=== PATIENT | male | born 1950 | race Two or more races ===

== ENCOUNTER 2020-08-03 13:51 | Outpatient (REF) | payer MEDICARE, MEDICAID, SELFPAY | END 2020-08-03 13:52 | disposition home or self-care (01) | LOC: HO.HAP 13:51 | PROVIDERS: Visit Provider Family Medicine | DX: Z46.1 Encounter for fitting and adjustment of hearing aid (principal) | CPT/HCPCS: V5266 ==

== ENCOUNTER → 2020-11-23 14:57 | Outpatient (BNVA) | payer MEDICARE, MEDICAID, SELFPAY | PROVIDERS: PCP Family Medicine; Visit Provider Internal Medicine Gastroenterology | DX: Z76.89 Persons encountering health services in other specified circumstances (principal) | CPT/HCPCS: Q3014 ==

== ENCOUNTER 2020-11-24 13:34 | Outpatient (REF) | payer MEDICARE, MEDICAID, SELFPAY ==
--- NOTE | ~2020-11-24 | CT_ITS ---
EXAMINATION: CT CHEST WITHOUT CONTRAST CLINICAL INFORMATION: Follow-up pulmonary nodules COMPARISON: Previous chest CT most recent October 2019 TECHNIQUE: Multidetector volumetric CT imaging of the chest was done. Axial MIP volume rendering provided. Sagittal and coronal reformatted images were obtained. This CT examination was performed using dose optimization techniques as appropriate, variously including the following: *Automated exposure control *Adjustment of mA and/or kV according to patient size (this includes techniques or standardized protocols for targeted exams where dose is matched to indication/reason for exam; i.e. extremities or head) *Use of iterative reconstruction technique DLP: 184 mGy-cm FINDINGS: FORESTRY SUPPORT SPECIALIST: Left lower lobe nodule. LUNGS: There are small 2 mm bilateral upper lobe nodules that are stable. There is a 3 mm calcified right upper lobe nodule axial image 274 series 7 that is stable. There is a 2 mm peripheral or subpleural right lower lobe nodule adjacent to the posterior mediastinum/esophagus axial image 450 series 7 There is a 7 mm calcified peripheral or subpleural left lower lobe nodule axial image 517 series 7 that is stable. There is adjacent linear scarring or subsegmental atelectasis that is able. The lungs are otherwise clear. MEDIASTINUM: There is coronary artery calcification. The mediastinum is otherwise normal. PLEURA: There is no pleural effusion. No pleural mass or thickening. AXILLA: No lymphadenopathy. UPPER ABDOMEN: Unremarkable. OSSEOUS STRUCTURES: There are degenerative changes of the spine. CT/CT chest wo con IMPRESSION: Stable calcified and noncalcified pulmonary nodules. Coronary artery calcification.
== END 2020-11-24 13:35 | disposition home or self-care (01) ==
LOC: HO.CT 13:34
PROVIDERS: Visit Provider Family Medicine
DX: R91.1 Solitary pulmonary nodule (principal)
CPT/HCPCS: 71250

== ENCOUNTER 2020-12-17 12:57 | Outpatient (REF) | payer MEDICARE, MEDICAID, SELFPAY | END 2020-12-17 12:58 | disposition home or self-care (01) | LOC: HO.HAP 12:57 | PROVIDERS: Visit Provider Family Medicine | DX: Z46.1 Encounter for fitting and adjustment of hearing aid (principal) | CPT/HCPCS: V5266 ==

== ENCOUNTER → 2021-03-22 10:48 | Outpatient (BNVA) | payer MEDICARE, MEDICAID, SELFPAY | PROVIDERS: PCP Family Medicine; Visit Provider Internal Medicine Gastroenterology | CPT/HCPCS: Q3014 ==

== ENCOUNTER 2021-04-13 12:26 | Outpatient (REF) | payer MEDICARE, MEDICAID, SELFPAY ==
--- NOTE | ~2021-04-13 | US_ITS ---
EXAMINATION: US COMPLETE ABDOMEN WITH LIVER ELASTOGRAPHY CLINICAL INFORMATION: Epigastric pain. History of reflux. COMPARISON: Previous CT of the abdomen and pelvis September 2019 TECHNIQUE: Real-time imaging of the abdominal viscera. Noninvasive ultrasound liver fibrosis assessment is performed using Terell ElastPQ point quantification shear wave elastography (pSWE) with a C5-2 MHz transducer. Multiple elastography samples are obtained. FINDINGS: PANCREAS: The visualized pancreatic head and body are normal in appearance. The remainder of the pancreas is obscured from visualization by the overlying bowel gas. ABDOMINAL AORTA: The proximal, middle, and distal aortic segments are normal in caliber. There is evidence of atherosclerotic disease. INFERIOR VENA CAVA: Visualized portions are normal. LIVER: Liver echotexture is increased. The liver demonstrates normal size and contour. No focal lesion or intrahepatic biliary duct dilatation. The right lobe measures 15.4 cm in length. The left lobe measures 6.5 cm in length. Portal flow is normal/hepatopedal. Shear wave liver elastography median stiffness is m/s (reference: normal median stiffness is 1.3 m/s or less). IQR/median stiffness to assess sampling precision is 1.4, 0.13 (reference: good quality data set is IQR/median stiffness of 0.15 or less). GALLBLADDER: Normal. The gallbladder is physiologically distended without evidence of stones, sludge, polyps, wall thickening or pericholecystic fluid. COMMON BILE DUCT: Normal in caliber measuring 0.7 cm in diameter. RIGHT KIDNEY: Normal. No hydronephrosis. No renal calculi or focal parenchymal lesions. The kidney measures 10.9 cm in maximum dimension. LEFT KIDNEY: Normal. No hydronephrosis. No renal calculi or focal parenchymal lesions. The kidney measures 11.7 cm in maximum dimension. SPLEEN: Normal. The spleen measures 9.7 cm in maximum dimension. FREE FLUID: None. US/US abdomen comp w elastography IMPRESSION: 1. Impression: Slightly echogenic liver. Limited visualization of the tail the pancreas. 2. Liver elastography: Adequate liver sampling. In the absence of other known clinical signs, rules out compensated advanced chronic liver disease. REFERENCE: Society of Radiologists in Ultrasound Liver Stiffness Thresholds (2020): LIVER STIFFNESS THRESHOLDS: *Liver Stiffness equal or less than 1.3 m/s: High probability of being normal. *Liver Stiffness less than 1.7 m/s: *Liver Stiffness 1.7-2.1 m/s: Suggestive of compensated advanced chronic liver disease but need further test for confirmation. *Liver Stiffness over 2.1 m/s: Rules in compensated advanced chronic liver disease. *Liver Stiffness over 2.4 m/s: Suggestive of clinically significant portal hypertension. QUALITY OF DATA SET: *IQR/Median value equal or less than 0.15 implies a quality data set. *IQR/Median value over 0.15 implies a poor quality data set. SIGNIFICANT CHANGE FROM PRIOR EXAM: Significant change if liver stiffness measurement is 10% or greater from prior exam. OTHER CONSIDERATIONS: The stage of liver fibrosis may be overestimated in the setting of acute hepatitis, liver inflammation, elevated liver function tests, hepatic vascular congestion, obstructive cholestasis, non-fasting state, and infiltrative diseases such as amyloidosis and lymphoma. In some patients with NAFLD, the liver stiffness thresholds for compensated advanced chronic liver disease may be lower. In causes other than viral hepatitis and NAFLD, liver stiffness thresholds are not well established.
== END 2021-04-13 12:27 | disposition home or self-care (01) ==
LOC: HO.US 12:26
PROVIDERS: Visit Provider Internal Medicine Gastroenterology
DX: K21.9 Gastro-esophageal reflux disease without esophagitis (principal); K59.01 Slow transit constipation
CPT/HCPCS: 76705; 76981

== ENCOUNTER 2021-04-29 13:55 | Outpatient (REF) | payer MEDICARE, MEDICAID, SELFPAY | END 2021-04-29 13:56 | disposition home or self-care (01) | LOC: HO.HAP 13:55 | PROVIDERS: Visit Provider Family Medicine | DX: Z46.1 Encounter for fitting and adjustment of hearing aid (principal); H90.3 Sensorineural hearing loss, bilateral | CPT/HCPCS: V5266 ==

== ENCOUNTER → 2021-07-12 11:30 | Outpatient (BNVA) | payer MEDICARE, MEDICAID, SELFPAY | PROVIDERS: PCP Family Medicine; Visit Provider Surgery Vascular Surgery | DX: I83.11 Varicose veins of right lower extremity with inflammation (principal) | CPT/HCPCS: 99202 ==

== ENCOUNTER → 2021-08-02 10:41 | Outpatient (BNVA) | payer MEDICARE, MEDICAID, SELFPAY | PROVIDERS: PCP Family Medicine; Referring Provider Family Medicine; Visit Provider Internal Medicine Gastroenterology | DX: K21.9 Gastro-esophageal reflux disease without esophagitis (principal); K59.01 Slow transit constipation | CPT/HCPCS: 99212 ==

== ENCOUNTER 2021-08-18 12:34 | Outpatient (REF) | payer MEDICARE, MEDICAID, SELFPAY ==
--- NOTE | ~2021-08-18 | US_ITS ---
EXAMINATION: BILATERAL LOWER EXTREMITY VENOUS ULTRASOUND (Reflux Exam) CLINICAL INDICATION: This is a 70-year-old male with venous insufficiency and varicose veins. COMPARISON: None. TECHNIQUE: Color flow triplex imaging and compression Doppler was performed to evaluate both the deep and the superficial systems bilaterally. To evaluate the superficial system, the examination was performed in the upright position. Color-flow Doppler ultrasound and compression ultrasound were utilized. In addition, maneuvers were utilized to demonstrate reflux. FINDINGS: 1. DEEP VENOUS ULTRASOUND OF THE RIGHT LOWER EXTREMITY: Common Femoral Vein: Compressible, normal respiratory variation and augmented flow. Femoral vein: Compressible, normal color flow and augmentation. Popliteal Vein: Compressible, normal augmentation. Deep Reflux: There is no evidence of reflux in the deep system in either the common femoral vein or the popliteal vein. . There is no evidence of a Stout's cyst. 2. SUPERFICIAL ULTRASOUND WITH DOPPLER OF RIGHT LOWER EXTREMITY GREAT SAPHENOUS VEIN: Saphenofemoral junction: 0.9 cm Mid thigh: 0.2 cm Above knee: 0.2 cm Below knee: 0.2 cm Mid calf: 0.2 cm Ankle: 0.2 cm GSV REFLUX: No evidence of reflux. DUPLICATED GREAT SAPHENOUS VEIN: There is a 0.4 cm duplicated lateral great saphenous vein without reflux. SMALL SAPHENOUS VEIN: Upper: 0.1 cm Lower: 0.2 cm SSV REFLUX: No evidence of reflux. VEIN OF GIACOMINI: None Imaged. 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 VARICOSITIES: None Imaged 3. DEEP VENOUS ULTRASOUND OF THE LEFT LOWER EXTREMITY: Common Femoral Vein: Compressible, normal respiratory variation and augmented flow. Femoral vein: Compressible, normal color flow and augmentation. Popliteal Vein: Compressible, normal augmentation. Deep Reflux: There is no evidence of reflux in the deep system in either the common femoral vein or the popliteal vein. There is no evidence of a Stout's cyst. 4. SUPERFICIAL ULTRASOUND WITH DOPPLER OF LEFT LOWER EXTREMITY GREAT SAPHENOUS VEIN: Saphenofemoral junction: 0.9 cm Mid thigh: 0.4 cm Above knee: 0.3 cm Below knee: 0.3 cm Mid calf: 0.2 cm Ankle: 2.2 cm GSV REFLUX: No evidence of reflux. DUPLICATED GREAT SAPHENOUS VEIN: None SMALL SAPHENOUS VEIN: Upper: 0.3 cm Lower: 0.2 cm SSV REFLUX: No evidence of reflux. VEIN OF GIACOMINI: None Imaged. PERFORATORS: There are 0.2 cm mid thigh and calf perforators, respectively, without reflux. VARICOSITIES: None Imaged US/US venous duplex LE BI IMPRESSION: 1. There are bilateral patent great saphenous veins and small saphenous veins, respectively, without evidence of reflux. Varicose veins were not seen.
== END 2021-08-18 12:35 | disposition home or self-care (01) ==
LOC: HO.US 12:34
PROVIDERS: PCP Family Medicine; Visit Provider Surgery Vascular Surgery
DX: I83.11 Varicose veins of right lower extremity with inflammation (principal)
CPT/HCPCS: 93970

== ENCOUNTER → 2021-08-25 13:38 | Outpatient (BNVA) | payer MEDICARE, MEDICAID, SELFPAY | PROVIDERS: PCP Family Medicine; Visit Provider Surgery Vascular Surgery | DX: I83.11 Varicose veins of right lower extremity with inflammation (principal) | CPT/HCPCS: 99212 ==

== ENCOUNTER 2021-09-15 10:20 | Outpatient (REF) | payer MEDICARE, MEDICAID, SELFPAY ==
--- NOTE | 2021-09-15 10:58 | MHC.AU.P13 ---
Hearing Instrument Problem Date of Visit: 09/15/21 Right Ear: Pad Assembler: Phonak Model: BOLERO B50-M Serial Number: [id number] Repair Warranty: 11/30/2021 Loss and Damage Warranty: 11/30/2021 Battery Size: 312 Color: [place] Tubing: #1 SLIM TUBE Type of Dome: SMALL OPEN Type of Wax Guard: Dispensed By: [facility] Date of Fittin09/25/2018 Left Ear: Pad Assembler: Phonak Model: BOLERO B50-M Serial Number: [id number] Repair Warranty: 11/30/2021 Loss and Damage Warranty: 11/30/2021 Battery Size: 312 Color: [place] Tubing: #1 SLIM TUBE Type of Dome: SMALL OPEN Dispensed By: [facility] Date of Fittin09/25/2018 Follow-Up Summary: Patient lost tail on one slim tube. Both aids cleaned, #1 slim tubes and small open domes replaced - both amplifying clearly. Recommendations: Recommendations: Hearing instrument follow-up or maintenance as needed. Diagnosis Code(s): Primary Diagnosis: H90.3 Bilateral Sensorineural Hearing Loss Signature: Provider: JAKI Underwood-HIS
== END 2021-09-15 10:21 | disposition home or self-care (01) ==
LOC: HO.HAP 10:20
PROVIDERS: Visit Provider Family Medicine
DX: Z13.89 Encounter for screening for other disorder (principal)

== ENCOUNTER 2021-09-16 16:41 | Emergency (ER) | payer MEDICARE, MEDICAID, SELFPAY ==
--- NOTE | ~2021-09-16 | XR_ITS ---
EXAMINATION: XR CHEST CLINICAL INFORMATION: Cough. COMPARISON: Chest x-ray 04/02/2019 TECHNIQUE: 2 views of the chest were obtained. FINDINGS: No significant abnormality is noted involving the heart, lungs, mediastinum, bony thorax or soft tissues. XR/XR chest 2V IMPRESSION: Unremarkable examination.
[2021-09-16 17:10] VITALS: BP 175/87; PULSE 75; RESP 20; TEMP 37.4; O2SAT 99; BMI 27.4
[2021-09-16 18:20] LABS: COVID-19 Test Negative (Negative)
[2021-09-16] MEDS: Benzonatate 100 MG CAPSULE 200 MG PO (19:26)
[2021-09-16] MEDS: Azithromycin 500 MG TABLET PO (19:26)
[2021-09-16] MEDS: predniSONE 20 MG TABLET 40 MG PO (19:26)
--- NOTE | 2021-09-16 19:30 | ED_ITS ---
HPI - URI/Sore Throat General Chief Complaint: Upper Respiratory Symptoms Stated Complaint: coughing Time Seen by Provider: 09/16/21 19:13 Source: patient Mode of arrival: ambulatory Limitations: no limitations History of Present Illness HPI Narrative: Patient with no significant past medical history already been vaccinated against COVID been coughing with running nose congested since yesterday no fever no chills Related Data Home Medications Medication Instructions Recorded Confirmed amitriptyline 25 mg tablet 50 mg PO BEDTIME 03/22/21 aspirin 81 mg tablet,delayed 81 mg PO BEDTIME 03/22/21 release blood sugar diagnostic #10 ea 03/22/21 cholecalciferol (vitamin D3) 50 50 mcg PO QAM 03/22/21 mcg (2,000 unit) capsule clonazepam 2 mg tablet 2 mg PO BEDTIME 03/22/21 docusate sodium 100 mg capsule 100 mg PO BID 03/22/21 gabapentin 300 mg capsule 300 mg PO BEDTIME 03/22/21 ipratropium bromide 21 mcg (0.03 2 spray INTRANASAL TID 03/22/21 %) nasal spray isosorbide mononitrate 30 mg 30 mg PO DAILY 03/22/21 tablet,extended release 24 hr ketotifen fumarate 0.025 % (0.035 1 drp OPHTHALMIC (EYE) BID PRN 03/22/21 %) eye drops lancets 33 gauge #100 ea 03/22/21 methylcellulose (laxative) 500 mg 1,000 mg PO QAM 03/22/21 tablet pantoprazole 40 mg tablet,delayed 40 mg PO DAILY 03/22/21 release ranolazine 1,000 mg 1,000 mg PO 03/22/21 tablet,extended release,12 hr sennosides 8.6 mg tablet 17.2 mg PO QPM 03/22/21 sertraline 100 mg tablet 100 mg PO QAM 03/22/21 tramadol 50 mg tablet 50 mg PO BID PRN 03/22/21 trazodone 100 mg tablet 100 mg PO BEDTIME 03/22/21 acetaminophen 650 mg 650 mg PO Q8H PRN 07/12/21 tablet,extended release alcohol swabs (Alcohol Prep Pads) 0 pad TOPICAL 07/12/21 atorvastatin 80 mg tablet 80 mg PO BEDTIME 07/12/21 ferrous sulfate 325 mg (65 mg 325 mg PO QAM 07/12/21 iron) tablet (FeroSul) levothyroxine 88 mcg tablet 88 mcg PO DAILY 07/12/21 lisinopril 2.5 mg tablet mg PO 07/12/21 metformin 500 mg tablet,extended 500 mg PO DAILY 07/12/21 release 24 hr metoprolol succinate 25 mg 12.5 mg PO DAILY 07/12/21 tablet,extended release 24 hr Previous Rx's Medication Instructions Recorded linaclotide 290 mcg capsule 290 mcg PO DAILY #60 cap 08/02/21 sucralfate 100 mg/mL oral 10 ml PO BID #420 ml 08/02/21 suspension (Carafate) azithromycin 250 mg tablet 250 mg PO DAILY 4 Days #4 tab 09/16/21 (Zithromax) codeine 10 mg-guaifenesin 100 mg/5 10 ml PO Q4-6H PRN #237 ml 09/16/21 mL oral liquid prednisone 20 mg tablet 40 mg PO DAILY #10 tab 09/16/21 Allergies Allergy/AdvReac Type Severity Reaction Status Date / Time SEAFOOD Allergy Intermediate VOMITING Uncoded 08/02/21 11:24 AND DIARHEA Review of Systems Review of Systems: Yes all other systems are reviewed and are negative [facility] Past Medical History Surgical History H/O colonoscopy History of cardiac cath Family History Family History Sister Cancer Social History Social History Household Members: Spouse and Children Alcohol intake: current Alcohol intake frequency: does not drink Advance Directives: No Advance Directives Information Provided: No Physical Exam Vital Signs: Vital Signs: Last Vital Signs Temp 99.4 F 09/16/21 17:10 Pulse 75 09/16/21 17:10 Resp 20 09/16/21 17:10 BP 175/87 H 09/16/21 17:10 Pulse Ox 99 09/16/21 17:10 BMI result Body Mass Index 27.4 Appearance: Alert. Oriented X3. No acute distress. ENT: Pharynx normal. Oral Mucosa moist clear rhinorrhea Neck: Normal inspection. Neck supple. CVS: Normal heart rate and rhythm. Pulses normal. Respiratory: No respiratory distress. Equal air entry bilateral, prolonged expiration with frequent dry cough Abdomen: Soft and nontender. Skin: Skin warm and dry. Normal skin color. Normal skin turgor. Extremities: No lower extremity edema. Neuro: Oriented X 3. MDM - URI/Sore Throat Lab Data Attestation: I reviewed the patient's lab results. Labs: Lab Results 09/16/21 Range/Units 17:59 COVID-19 ([facility]) Negative (Negative) COVID-19 Clin Com See Note Discharge Plan Discharge Clinical Impression: Bronchitis Patient Disposition: Home, Self-Care Instructions: Acute Bronchitis (ED) Additional Instructions: Take medication as prescribed Follow with PCP if not better Prescriptions: New prednisone 20 mg tablet 40 mg PO DAILY Qty: 10 RF: 0 codeine-guaifenesin 10-100 mg/5 mL liquid 10 ml PO Q4-6H PRN (Reason: cough) Qty: 237 RF: 0 azithromycin [Zithromax] 250 mg tablet 250 mg PO DAILY 4 Days Qty: 4 RF: 0 No Action ranolazine 1,000 mg tablet extended release 12 hr 1,000 mg PO RF: 0 ipratropium bromide 21 mcg (0.03 %) spray,non-aerosol 2 spray intranasal TID RF: 0 gabapentin 300 mg capsule 300 mg PO BEDTIME RF: 0 docusate sodium 100 mg capsule 100 mg PO BID RF: 0 clonazepam 2 mg tablet 2 mg PO BEDTIME RF: 0 Fiber Laxative (methylcellulo) 500 mg tablet 1,000 mg PO QAM RF: 0 trazodone 100 mg tablet 100 mg PO BEDTIME RF: 0 pantoprazole 40 mg tablet,delayed release (DR/EC) 40 mg PO DAILY RF: 0 amitriptyline 25 mg tablet 50 mg PO BEDTIME RF: 0 aspirin 81 mg tablet,delayed release (DR/EC) 81 mg PO BEDTIME RF: 0 (DME) FreeStyle Lite Strips Strip See Rx Instructions ea Not Applicable BID Qty: 10 RF: 0 sertraline 100 mg tablet 100 mg PO QAM RF: 0 sennosides 8.6 mg tablet 17.2 mg PO QPM RF: 0 tramadol 50 mg tablet 50 mg PO BID PRNRF: 0 isosorbide mononitrate 30 mg tablet extended release 24 hr 30 mg PO DAILY RF: 0 (DME) lancets 33 gauge misc See Rx Instructions ea Not Applicable BID Qty: 100 RF: 0 cholecalciferol (vitamin D3) 50 mcg (2,000 unit) capsule 50 mcg PO QAM RF: 0 ketotifen fumarate 0.025 % (0.035 %) drops 1 drp ophthalmic (eye) BID PRN (Reason: itch) RF: 0 alcohol swabs [Alcohol Prep Pads] Pads, Medicated 0 pad topical RF: 0 lisinopril 2.5 mg tablet PO RF: 0 metformin 500 mg tablet extended release 24 hr 500 mg PO DAILY RF: 0 atorvastatin 80 mg tablet 80 mg PO BEDTIME RF: 0 metoprolol succinate 25 mg tablet extended release 24 hr 12.5 mg PO DAILY RF: 0 ferrous sulfate [FeroSul] 325 mg (65 mg iron) tablet 325 mg PO QAM RF: 0 levothyroxine 88 mcg tablet 88 mcg PO DAILY RF: 0 acetaminophen 650 mg tablet extended release 650 mg PO Q8H PRN (Reason: fever) RF: 0 Linzess 290 mcg capsule 290 mcg PO DAILY Qty: 60 RF: 1 sucralfate [Carafate] 100 mg/mL suspension 10 ml PO BID Qty: 420 RF: 0 Interventions: ED Discharge Assessment Last Done: 09/16/21 19:28 Discharge Date/Time: 09/16/21 19:32
== END 2021-09-16 19:32 | disposition home or self-care (01) ==
PROVIDERS: Emergency Provider Internal Medicine
DX: J40 Bronchitis, not specified as acute or chronic (principal); Z20.822 Contact with and (suspected) exposure to COVID-19
CPT/HCPCS: 36415; 71046; 87635; 99283

== ENCOUNTER 2022-01-25 12:21 | Outpatient (REF) | payer MEDICARE, MEDICAID, SELFPAY | END 2022-01-25 12:22 | disposition home or self-care (01) | LOC: HO.HAP 12:21 | PROVIDERS: Visit Provider Family Medicine | DX: Z46.1 Encounter for fitting and adjustment of hearing aid (principal); H90.3 Sensorineural hearing loss, bilateral | CPT/HCPCS: V5266 ==

== ENCOUNTER 2022-05-18 12:58 | Outpatient (REF) | payer MEDICARE, MEDICAID, SELFPAY ==
--- NOTE | ~2022-05-18 | CT_ITS ---
EXAMINATION: CT CHEST WITHOUT CONTRAST CLINICAL INFORMATION: Follow-up pulmonary nodule. COMPARISON: Chest x-ray 09/16/2021 CT chest 11/24/2020. TECHNIQUE: Multidetector volumetric CT imaging of the chest was done. Axial MIP volume rendering provided. Sagittal and coronal reformatted images were obtained. This CT examination was performed using dose optimization techniques as appropriate, variously including the following: *Automated exposure control *Adjustment of mA and/or kV according to patient size (this includes techniques or standardized protocols for targeted exams where dose is matched to indication/reason for exam; i.e. extremities or head) *Use of iterative reconstruction technique DLP: 175 mGy-cm. 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 LUNGS: The lungs are well expanded and clear of acute pneumonic process. There are numerous 2 mm lymph nodes in both upper lobes, both lower lobes and focal lobular 2 mm thickening along the right and left major fissure, a calcified granuloma measuring 3 mm right upper lobe and the pleural-based 7 mm calcified granulomas are stable. There is no new pulmonary nodules. There is focal atelectasis left lower lobe. MEDIASTINUM: The thyroid lobes appear symmetrical and normal. The central trachea and the bronchi are widely patent. Heart size and the great vessels are normal caliber. There is mild coronary artery calcifications. No pericardial effusion seen. PLEURA: There is no pleural effusion. No pleural mass or thickening. AXILLA: There are small shotty lymph nodes in the axilla. The chest wall is unremarkable. UPPER ABDOMEN: Visualized liver, spleen, pancreas and bilateral adrenal glands are unremarkable. There is moderate stool in colon. OSSEOUS STRUCTURES: There is mild ventral spondylosis T8-T9 and T9-T10 disc levels. No compression fracture or lytic process. CT/CT chest wo con IMPRESSION: Multiple noncalcified 2 mm and calcified pulmonary nodules are stable. There is mild coronary artery calcification which is stable. Moderate constipation. Fleischner guidelines were followed.
== END 2022-05-18 12:59 | disposition home or self-care (01) ==
LOC: HO.CT 12:58
PROVIDERS: PCP Family Medicine; Visit Provider Family Medicine
DX: R91.1 Solitary pulmonary nodule (principal)
CPT/HCPCS: 71250

== ENCOUNTER 2022-07-04 13:16 | Outpatient (REF) | payer MEDICARE, MEDICAID, SELFPAY | END 2022-07-04 13:17 | disposition home or self-care (01) | LOC: HO.HAP 13:16 | PROVIDERS: Visit Provider Family Medicine | DX: Z46.1 Encounter for fitting and adjustment of hearing aid (principal); H90.3 Sensorineural hearing loss, bilateral | CPT/HCPCS: V5266 ==

== ENCOUNTER 2022-11-28 12:57 | Outpatient (REF) | payer MEDICARE, MEDICAID, SELFPAY | END 2022-11-28 12:58 | disposition home or self-care (01) | LOC: HO.HAP 12:57 | PROVIDERS: Visit Provider Family Medicine | DX: Z46.1 Encounter for fitting and adjustment of hearing aid (principal); H90.3 Sensorineural hearing loss, bilateral | CPT/HCPCS: V5266 ==

== ENCOUNTER 2023-02-20 09:52 | Outpatient (REF) | payer OTHER, SELFPAY ==
--- NOTE | ~2023-02-20 | XR_ITS ---
EXAMINATION: XR LUMBOSACRAL SPINE CLINICAL INFORMATION: Low back pain COMPARISON: Previous x-ray from 1999 TECHNIQUE: Three views of the lumbosacral spine. FINDINGS: Bone alignment is normal. No fracture or dislocation. Disc spaces are normal. Mild degenerative spondylosis at L2-L3 and L3-L4. Lower lumbar spine facet arthritis. XR/XR lumbar spine 2-3V IMPRESSION: Mild degenerative changes.
--- NOTE | ~2023-02-20 | XR_ITS ---
EXAMINATION: XR RIBS, LEFT CLINICAL INFORMATION: Chronic left lower rib pain COMPARISON: Previous chest x-ray May [address] September 2021 TECHNIQUE: 3 views of the left ribs were obtained. FINDINGS: The cardiac and mediastinal contours are stable. Stable dense nodule in the left lower lobe corresponding to a calcified granuloma. The lungs are otherwise clear. No pleural effusion or pneumothorax. Degenerative changes of the spine. No rib fracture or bone lesion. XR/XR ribs LT min 3V w CXR1V IMPRESSION: No evidence for acute disease in the chest. No rib fracture.
== END 2023-02-20 09:53 | disposition home or self-care (01) ==
LOC: HO.XRAY 09:52
PROVIDERS: PCP Family Medicine; Visit Provider Family Medicine
DX: M54.9 Dorsalgia, unspecified (principal); R07.81 Pleurodynia
CPT/HCPCS: 71101; 72100

== ENCOUNTER 2023-03-05 09:02 | Outpatient (REF) | payer OTHER, SELFPAY ==
--- NOTE | ~2023-03-05 | US_ITS ---
EXAMINATION: US RETROPERITONEAL LIMITED (AORTA) CLINICAL INFORMATION: History of tobacco use. COMPARISON: CT chest 05/18/2022. US abdomen complete with liver elastography 04/13/2021. CT abdomen and pelvis without contrast 10/02/2019. TECHNIQUE: Abreu-scale, color Doppler and spectral Doppler evaluation of the abdominal aorta. FINDINGS: The proximal aorta is not seen due to bowel gas. Mild atherosclerotic disease. The measurements of the aorta in maximum AP and transverse dimensions respectively are as follows: Proximal: Not seen due to overlying bowel gas. Mid: 2.1 x 1.9 cm. Distal: 2.0 x 2.4 cm. PSV: 72.7 cm/s. The measurements of the common iliac arteries in maximum AP and TRV dimensions are as follows: Right Common Iliac Artery: 1.1 x 1.5 cm. Left Common Iliac Artery: 1.3 x 1.2 cm. US/US abdominal aortic aneurysm IMPRESSION: Nonvisualization of the proximal abdominal aorta due to bowel gas. Otherwise no evidence of aortic aneurysm. Note, on CT chest 05/18/2022 the upper abdominal aorta is normal in caliber.
== END 2023-03-05 09:03 | disposition home or self-care (01) ==
LOC: HO.US 09:02
PROVIDERS: PCP Family Medicine; Visit Provider Family Medicine
DX: Z13.6 Encounter for screening for cardiovascular disorders (principal); F17.200 Nicotine dependence, unspecified, uncomplicated
CPT/HCPCS: 76706

== ENCOUNTER 2023-06-25 19:48 | Outpatient (REF) | payer OTHER, SELFPAY ==
[2023-06-26 15:28] LABS: H Pylori Breath Test Negative (Negative)
== END 2023-06-25 19:49 | disposition home or self-care (01) ==
LOC: HO.HHCLNP 19:48
PROVIDERS: Visit Provider Family Medicine
DX: K21.9 Gastro-esophageal reflux disease without esophagitis (principal)
CPT/HCPCS: 83013

== ENCOUNTER 2023-07-20 12:50 | Outpatient (REF) | payer OTHER, SELFPAY | END 2023-07-20 12:51 | disposition home or self-care (01) | LOC: HO.CT 12:50 | PROVIDERS: Visit Provider Family Medicine | DX: R91.1 Solitary pulmonary nodule (principal) | CPT/HCPCS: 71250 ==

== ENCOUNTER 2023-08-09 09:56 | Outpatient (REF) | payer OTHER, SELFPAY ==
--- NOTE | 2023-08-09 10:02 | EMG_ITS ---
FINDINGS: Bilateral tibial and peroneal motor studies were performed. Bilateral sural, superficial peroneal, and median and lateral plantar sensory studies were performed. Tibial H reflexes were obtained and paraspinal muscles were tested with a needle. IMPRESSION: Moderately severe axonal sensory motor peripheral neuropathy. MD BETO Yancey/MODL / [id number]
== END 2023-08-09 09:57 | disposition home or self-care (01) ==
LOC: HO.NEURO 09:56
PROVIDERS: PCP Family Medicine; Visit Provider Family Medicine
DX: R20.2 Paresthesia of skin (principal)
CPT/HCPCS: 95886; 95913

== ENCOUNTER 2023-11-05 16:50 | Outpatient (REF) | payer OTHER, SELFPAY ==
[2023-11-05 18:41] LABS: CT PCR NOT DETECTED (Not Detect.); NG PCR NOT DETECTED (Not Detect.)
== END 2023-11-05 16:51 | disposition home or self-care (01) ==
LOC: HO.HHCLNP 16:50
PROVIDERS: Visit Provider Family Medicine
DX: R35.0 Frequency of micturition (principal); Z20.2 Contact with and (suspected) exposure to infections with a predominantly sexual mode of transmission
CPT/HCPCS: 0353U

== ENCOUNTER 2023-11-06 11:38 | Outpatient (REF) | payer OTHER, SELFPAY ==
[2023-11-06 13:57] LABS: Hematocrit 43.3 % (42.0-52.0); Hemoglobin 14.5 g/dl (14.0-18.0); Mean Corpuscular HGB Conc 33.5 g/dl (31.0-36.0); Mean Corpuscular Hemoglobin 32.1 pg (27.0-33.0); Mean Corpuscular Volume 95.8 fL (80.0-98.0); Platelet Count 206 X10*3/uL (160-400); Red Blood Count 4.52 X10*6/uL (4.60-5.80); Red Cell Distribution Width 11.9 % (11.0-16.0); White Blood Count 5.9 X10*3/uL (4.8-10.8)
[2023-11-06 14:24] LABS: Estimated Average Glucose 134 mg/dL; Hemoglobin A1c % 6.3 % (<6.0)
[2023-11-06 15:09] LABS: Alanine Aminotransferase 17 U/L (0-40); Albumin Level 4.3 g/dL (3.5-5.0); Alkaline Phosphatase 50 U/L (39-117); Anion Gap 11 (12-20); Aspartate Amino Transferase 19 U/L (5-37); Bilirubin Direct 0.2 mg/dL (0.0-0.5); Bilirubin Total 0.7 mg/dL (0.0-1.0); Blood Urea Nitrogen 12 mg/dL (9-16); Calcium 9.5 mg/dL (8.4-10.2); Carbon Dioxide 30 mmol/L (22-29); Chloride 103 mmol/L (96-108); Cholesterol 144 mg/dL (<200); Estimated Glomerular Filt Rate > 60; Free T4 (Free Thyroxine) 0.95 ng/dL (0.71-1.85); Glucose Random 140 mg/dL (60-115); HDL Cholesterol 38 mg/dL (>40); LDL Cholesterol Calculated 67 mg/dL (<100); Potassium 4.8 mmol/L (3.3-5.1); Sodium 139 mmol/L (135-145); Thyroid Stimulating Hormone 1.39 uIU/mL (0.32-4.0); Total Protein 7.1 g/dL (6.5-8.0); Triglycerides 199 mg/dL (<150); Vitamin D 25-OH Total 66.2 ng/mL (>30)
[2023-11-07 09:15] LABS: HBS Num1 0.21 mIU/mL (0-7.99); HBsAGNum1 0.27 S/CO (0.00-0.99); HIV AB/AG Nonreactive (Nonreactive); HIV Num 1 0.11 S/CO (0.00-0.99); Hepatitis B Surface Antigen Negative (Negative); ~HepC Num1 0.06 S/CO (0.00-0.79); ~Hepatitis B Surface Antibody NONREACTIVE (Nonreactive); ~Hepatitis C Antibody Nonreactive (Nonreactive)
[2023-11-08 12:19] LABS: RPR Rapid Plasma Reagin NON-REACTIVE (NON-REACTIVE)
== END 2023-11-06 11:39 | disposition home or self-care (01) ==
LOC: HO.HHCL 11:38
PROVIDERS: Visit Provider Family Medicine
DX: E11.9 Type 2 diabetes mellitus without complications (principal)
CPT/HCPCS: 36415; 80048; 80061; 80076; 82306; 83036; 84439; 84443; 85027; 86592; 86706; 86803; 87340; 87389

== ENCOUNTER 2024-01-15 09:13 | Outpatient (AMB) | payer OTHER, SELFPAY ==
--- NOTE | 2024-01-15 09:23 | MHC.OFFVIS ---
Intake Intake Visit Reasons: Frequency/UTI Symptoms Intake Note: New patient is present for UTI Symptoms and Frequency Antibiotic Allergies:None Blood Thinner: Aspirin PVR: 17 Executive Producer Required: Yes Allergies SEAFOOD Allergy (Intermediate, Uncoded 01/15/24 09:26) VOMITING AND DIARHEA HPI HPI Comments History of Present Illness Details Juvencio is a pleasant Vietnamese-speaking male. He is a patient of . He is seen for the following urologic conditions - lower urinary tract symptoms Vietnamese translation provided in office by qualified medical detail representative Primary issues nocturia times 3-4 Weakness of stream Feeling of burning with urination - UA spec gravity 1.025, pH 5.5 Discussed increasing fluid intake in morning to dilute urine Will Trial terazosin Bladder ultrasound, PSA Lower urinary tract symptoms Background diabetes PFSH Surgical History History of cardiac cath H/O colonoscopy Family History Sister Cancer Social History Household Members: Spouse and Children Alcohol intake: current Alcohol intake frequency: does not drink Review of Systems Const Denies chills and Denies fever(s) Card Reports no additional complaints and Denies syncope Resp Denies cough GI Denies abdominal pain and Denies heartburn Reports as per HPI and Denies change in libido Neuro Denies syncope Psych Denies change in libido Endo Denies change in libido Physical Exam Const General: cooperative, healthy appearing, comfortable and no acute distress Orientation/consciousness: patient oriented x3 HEENT Face and sinus: Yes normal facial exam Mouth: moist mucous membranes Neck Neck: Yes normal visual inspection, Yes full ROM and Yes trachea midline Chest Chest palpation & inspection: normal inspection of the chest Resp Effort & Inspection: normal respiratory effort, able to speak in complete sentences and no respiratory distress GI Inspection: Yes normal to inspection Back/Spine/Pelvis Cervical Spine: normal cervical lordosis Thoracic/Lumbar Spine: thoracic and lumbar spine normal to inspection Skin General skin exam: no rashes or lesions noted Neuro General: patient oriented x3, gait normal, tone normal and moves all extremities Extrem General: Yes normal to inspection and Yes capillary refill normal Office Procedures Post Void Residual Post Residual Void Post Void Residual (PVR): 17 54860-Dgfp Void Residual by ultrasound Results AMB Urinalysis, Automated UA Leukoctes 15 Noa/uL Last Edit by Marbella Chaney, A on 01/15/24 09:35 UA Nitrite Negative Last Edit by Marbella Chaney, RMA on 01/15/24 09:35 UA Urobilinogen 0.2 mg/dL Last Edit by Marbella Chaney, RMA on 01/15/24 09:35 UA Protein 15 mg/dL Last Edit by Marbella Chaney, RMA on 01/15/24 09:35 UA pH 5.5 Last Edit by Marbella Chaney, RMA on 01/15/24 09:35 UA Blood 0 Michael/uL Last Edit by Marbella Chaney, RMA on 01/15/24 09:35 UA Specific [place] 1.025 Last Edit by Marbella Chaney, RMA on 01/15/24 09:35 UA Ketone Positive Last Edit by Marbella Chaney, A on 01/15/24 09:35 UA Bilirubin 0 mg/dL Last Edit by Marbella Chaney, RMA on 01/15/24 09:35 UA Glucose 0 mg/dL Last Edit by Marbella Chaney, RMA on 01/15/24 09:35 Assessment & Plan Assessment & Plan (1) Weak urinary stream: Code(s): R39.12 - Poor urinary stream (2) Nocturia more than twice per night: Code(s): R35.1 - Nocturia Plan Bladder ultrasound PSA Trial terazosin Orders: Orders AMB Urinalysis Automated Today Z13.9 - Encounter for screening, unspecified PSA,Total (Free>4and<10) Today R35.1 - Nocturia AMB Post Void Residual by ultrasound Today Z13.9 - Encounter for screening, unspecified US bladder Today R35.1 - Nocturia Medications: New terazosin 5 mg PO BEDTIME 30 days 30 caps 1RF N40.1 - Benign prostatic hyperplasia with lower urinary tract symptoms, R35.0 - Frequency of micturition, R35.1 - Nocturia Patient Instructions: Imaging studies, laboratory and physical exam results were discussed and reviewed in detail. No major barriers to patient understanding were identified. An opportunity to ask questions regarding the treatment plan was provided. All questions were answered. The patient expressed understanding and agreement with the above treatment plan. The patient is aware they should contact our office by phone for worsening of their current condition or the appearance of new urologic symptoms. Compliance is encouraged with any medications and followup testing that is ordered. It is a privilege to participate in the urologic care of your patient. If you have any questions or concerns regarding treatment for the above conditions, or other urologic issues, please do not hesitate to contact me. The office telephone contact is [phone]. This note is constructed using voice recognition software. While every effort has been made to ensure accuracy air pollution auditor errors may have been included. Yours sincerely, Dr Kelechi Gutierrez MD, FARHAD [facility] - Urology Providers of Expert, Compassionate Care for the Genitourinary System Coding Level of Care Code New Pt Level 4 (59864) Diagnoses Weak urinary stream R39.12 Nocturia more than twice per night R35.1 CPT Codes Post Residual Void - PVR CPT Code: 12989-Ygfu Void Residual by ultrasound ([id number])
== END 2024-01-15 09:46 | disposition home or self-care (01) ==
PROVIDERS: PCP Family Medicine; Visit Provider Urology
DX: R39.12 Poor urinary stream (principal); R35.1 Nocturia; Z13.9 Encounter for screening, unspecified
CPT/HCPCS: 99204

== ENCOUNTER → 2024-01-15 09:13 | Outpatient (BNVA) | payer OTHER, SELFPAY | PROVIDERS: PCP Family Medicine; Visit Provider Urology | DX: R39.12 Poor urinary stream (principal); R35.1 Nocturia | CPT/HCPCS: 51798; 81003; 99202 ==

== ENCOUNTER 2024-03-18 14:57 | Outpatient (AMB) | payer OTHER, SELFPAY ==
--- NOTE | 2024-03-18 15:21 | A.OFFVIS_ITS ---
Intake Visit Reasons: 2m/US/PVR(no u/s) Intake Note: Patient is Present for PVR/ Urology Med: Terazosin Antibiotic Allergy: None Blood Thinner: Aspirin Last PVR: 17ml Todays PVR:0 Vice President [employer] Required: Yes Vice President [employer] Language: Armenian Information Interpreted: clinical only Allergies SEAFOOD Allergy (Intermediate, Uncoded 03/18/24 15:22) VOMITING AND DIARHEA Medication List - Last Reconciled 03/18/24 by Kelechi Gutierrez MD acetaminophen ER 650 mg PO Q8H PRN alcohol swabs (Alcohol Prep Pads) 0 pad topical amitriptyline 50 mg PO BEDTIME aspirin 81 mg PO BEDTIME atorvastatin 80 mg PO BEDTIME azithromycin (Zithromax) 250 mg PO DAILY 4 days blood sugar diagnostic As directed cholecalciferol (vitamin D3) 50 mcg PO QAM clonazepam 2 mg PO BEDTIME codeine-guaifenesin 10-100 mg/5 mL 10 mL PO Q4-6H PRN docusate sodium 100 mg PO BID ferrous sulfate (FeroSul) 325 mg PO QAM gabapentin 300 mg PO BEDTIME ipratropium bromide 2 sprays intranasal TID isosorbide mononitrate ER 30 mg PO DAILY ketotifen fumarate 0.025%(0.035%) 1 drp ophthalmic (eye) BID PRN lancets As directed levothyroxine 88 mcg PO DAILY linaclotide (Linzess) 290 mcg PO DAILY lisinopril mg PO metformin ER 500 mg PO DAILY methylcellulose (laxative) 1,000 mg PO QAM metoprolol succinate ER 12.5 mg PO DAILY pantoprazole 40 mg PO DAILY prednisone 40 mg (2 x 20 mg) PO DAILY ranolazine ER 1,000 mg PO sennosides 17.2 mg PO QPM sertraline 100 mg PO QAM sucralfate (Carafate) 10 mL PO BID terazosin 5 mg PO BEDTIME 90 days tramadol 50 mg PO BID PRN trazodone 100 mg PO BEDTIME HPI Comments Details: Juvencio is a pleasant Armenian-speaking male. He is a patient of . He is seen for the following urologic conditions - lower urinary tract symptoms Armenian translation provided in office by qualified manager medical device Follow-up from trial of terazosin. PSA not completed PVR low Would like to continue with medications Six-month prescription provided Six-month follow-up PVR PSA Lower urinary tract symptoms Background diabetes Bladder ultrasound not done PFSH Surgical History History of cardiac cath H/O colonoscopy Family History Sister Cancer Social History Household Members: Spouse and Children Alcohol intake: current Alcohol intake frequency: does not drink Review of Systems Const Denies chills and Denies fever(s) Card Reports no additional complaints and Denies syncope Resp Denies cough GI Denies abdominal pain and Denies heartburn Reports as per HPI and Denies change in libido Neuro Denies syncope Psych Denies change in libido Endo Denies change in libido Physical Exam Const General: cooperative, healthy appearing, comfortable and no acute distress Orientation/consciousness: patient oriented x3 HEENT Face and sinus: Yes normal facial exam Mouth: moist mucous membranes Neck Neck: Yes normal visual inspection, Yes full ROM and Yes trachea midline Chest Chest palpation & inspection: normal inspection of the chest Resp Effort & Inspection: normal respiratory effort, able to speak in complete sentences and no respiratory distress GI Inspection: Yes normal to inspection Back/Spine/Pelvis Cervical Spine: normal cervical lordosis Thoracic/Lumbar Spine: thoracic and lumbar spine normal to inspection Skin General skin exam: no rashes or lesions noted Neuro General: patient oriented x3, gait normal, tone normal and moves all extremities Extrem General: Yes normal to inspection and Yes capillary refill normal Office Procedures Post Void Residual Post Residual Void Post Void Residual (PVR): 0 60461-Wogs Void Residual by ultrasound Assessment & Plan Assessment & Plan (1) Weak urinary stream: Code(s): R39.12 - Poor urinary stream Category: Medical (2) Nocturia more than twice per night: Code(s): R35.1 - Nocturia Category: Medical Plan Six-month follow-up Orders: Orders Prostate Specific Antigen 6 Months R35.1 - Nocturia AMB Post Void Residual by ultrasound Today R35.1 - Nocturia Patient Instructions: Imaging studies, laboratory and physical exam results were discussed and reviewed in detail. No major barriers to patient understanding were identified. An opportunity to ask questions regarding the treatment plan was provided. All questions were answered. The patient expressed understanding and agreement with the above treatment plan. The patient is aware they should contact our office by phone for worsening of their current condition or the appearance of new urologic symptoms. Compliance is encouraged with any medications and followup testing that is ordered. It is a privilege to participate in the urologic care of your patient. If you have any questions or concerns regarding treatment for the above conditions, or other urologic issues, please do not hesitate to contact me. The office tel ephone contact is [phone]. This note is constructed using voice recognition software. While every effort has been made to ensure accuracy ring sorter errors may have been included. Yours sincerely, Dr Kelechi Gutierrez MD, F[facility] - Urology Providers of Expert, Compassionate Care for the Genitourinary System Coding Level of Care Code Est Pt Level 3 (91291) Diagnoses Weak urinary stream R39.12 Nocturia more than twice per night R35.1 CPT Codes Post Residual Void - PVR CPT Code: 43690-Omqd Void Residual by ultrasound ([id number])
== END 2024-03-18 15:49 | disposition home or self-care (01) ==
PROVIDERS: PCP Family Medicine; Visit Provider Urology
DX: R39.12 Poor urinary stream (principal); R35.1 Nocturia
CPT/HCPCS: 99213

== ENCOUNTER → 2024-03-18 14:57 | Outpatient (BNVA) | payer OTHER, SELFPAY | PROVIDERS: PCP Family Medicine; Visit Provider Urology | DX: R39.12 Poor urinary stream (principal); R35.1 Nocturia | CPT/HCPCS: 51798; 99212 ==

== ENCOUNTER 2024-04-07 14:54 | Outpatient (REF) | payer OTHER, SELFPAY | END 2024-04-07 14:55 | disposition home or self-care (01) | LOC: HO.US 14:54 | PROVIDERS: PCP Family Medicine; Visit Provider Urology | DX: Z13.89 Encounter for screening for other disorder (principal) ==

== ENCOUNTER 2024-04-09 14:04 | Outpatient (REF) | payer OTHER, SELFPAY ==
--- NOTE | ~2024-04-09 | US_ITS ---
EXAMINATION: US PELVIS LIMITED (BLADDER) CLINICAL INFORMATION: Nocturia. COMPARISON: CT abdomen and pelvis 10/02/2019. Ultrasound abdomen 04/13/2021. X-ray abdomen 09/09/2018. TECHNIQUE: Real-time imaging of the bladder. FINDINGS: BLADDER: Well distended and normal. Bilateral ureteral jets are demonstrated. Prevoid bladder volume is 183 mL. Postvoid bladder volume is 8 mL. The bladder wall is mildly hypertrophic and trabeculated. ADDITIONAL FINDINGS: Prostate dimensions are 5.0 x 4.5 x 4.4 cm (volume 50.9 mL). US/US bladder IMPRESSION: 1. There is bladder wall hypertrophy. 2. There is prostatomegaly.
== END 2024-04-09 14:05 | disposition home or self-care (01) ==
LOC: HO.US 14:04
PROVIDERS: PCP Family Medicine; Visit Provider Urology
DX: R35.1 Nocturia (principal)
CPT/HCPCS: 76857

== ENCOUNTER 2024-08-04 09:16 | Outpatient (REF) | payer OTHER, SELFPAY ==
[2024-08-04 10:06] LABS: Hematocrit 37.3 % (42.0-52.0); Hemoglobin 12.8 g/dl (14.0-18.0); Mean Corpuscular HGB Conc 34.3 g/dl (31.0-36.0); Mean Corpuscular Hemoglobin 32.1 pg (27.0-33.0); Mean Corpuscular Volume 93.5 fL (80.0-98.0); Mean Platelet Volume 10.3 fL (9.4-12.4); Platelet Count 186 X10*3/uL (160-400); Red Blood Count 3.99 X10*6/uL (4.60-5.80); Red Cell Distribution Width 11.3 % (11.0-16.0); White Blood Count 6.6 X10*3/uL (4.8-10.8)
[2024-08-04 10:44] LABS: Estimated Average Glucose 140 mg/dL; Hemoglobin A1c % 6.5 % (<6.0); Total Hemoglobin (HGBA1C) 3284.4762 umol/L
[2024-08-04 11:01] LABS: Anion Gap 9 (12-20)
[2024-08-04 11:06] LABS: Albumin Level 4.1 g/dL (3.5-5.0); Alkaline Phosphatase 48 U/L (39-117); Bilirubin Direct 0.2 mg/dL (0.0-0.5); Bilirubin Total 0.5 mg/dL (0.0-1.0); Blood Urea Nitrogen 11 mg/dL (9-16); Calcium 8.8 mg/dL (8.4-10.2); Carbon Dioxide 29 mmol/L (22-29); Chloride 102 mmol/L (96-108); Cholesterol 124 mg/dL (<200); Estimated Glomerular Filt Rate > 60; Glucose Random 130 mg/dL (60-115); HDL Cholesterol 38 mg/dL (>40); LDL Cholesterol Calculated 53 mg/dL (<100); Potassium 4.3 mmol/L (3.3-5.1); Sodium 136 mmol/L (135-145); Total Protein 6.4 g/dL (6.5-8.0); Triglycerides 169 mg/dL (<150)
[2024-08-04 11:14] LABS: Prostate Specific Antigen Scr 0.47 ng/mL (<0.05-4.0)
[2024-08-04 11:15] LABS: HBc Num1 0.13 S/CO (0.00-0.79); HBsAGNum1 0.25 S/CO (0.00-0.99); HIV AB/AG Nonreactive (Nonreactive); HIV Num 1 0.06 S/CO (0.00-0.99); Hepatitis B Core Antibody Nonreactive (Nonreactive); Hepatitis B Surface Antigen Negative (Negative); ~HepC Num1 0.09 S/CO (0.00-0.79); ~Hepatitis B Surface Antibody NONREACTIVE (Nonreactive); ~Hepatitis C Antibody Nonreactive (Nonreactive)
[2024-08-04 11:21] LABS: Free T4 (Free Thyroxine) 0.84 ng/dL (0.71-1.85); Vitamin D 25-OH Total 37.7 ng/mL (>30)
[2024-08-04 11:25] LABS: Creatinine Urine 137.82 mg/dL; Microalbum/Creatinine Ratio Ur 4.3 ug/mg cr (<30)
[2024-08-04 12:11] LABS: Alanine Aminotransferase 34 U/L (0-40); Aspartate Amino Transferase 29 U/L (5-37)
[2024-08-04 12:22] LABS: CT PCR NOT DETECTED (Not Detect.); NG PCR NOT DETECTED (Not Detect.)
[2024-08-07 02:23] LABS: RPR Rapid Plasma Reagin NON-REACTIVE (NON-REACTIVE)
== END 2024-08-04 09:17 | disposition home or self-care (01) ==
LOC: HO.LAB 09:16
PROVIDERS: PCP Family Medicine; Visit Provider Family Medicine
DX: Z00.00 Encounter for general adult medical examination without abnormal findings (principal); E11.9 Type 2 diabetes mellitus without complications; I10 Essential (primary) hypertension; E78.49 Other hyperlipidemia; F41.1 Generalized anxiety disorder; I25.10 Atherosclerotic heart disease of native coronary artery without angina pectoris; E03.9 Hypothyroidism, unspecified; K21.9 Gastro-esophageal reflux disease without esophagitis; K59.09 Other constipation; R35.0 Frequency of micturition; G62.9 Polyneuropathy, unspecified; M15.9 Polyosteoarthritis, unspecified; M54.40 Lumbago with sciatica, unspecified side; G89.29 Other chronic pain; R53.83 Other fatigue; G47.30 Sleep apnea, unspecified; M65.332 Trigger finger, left middle finger; Z23 Encounter for immunization; Z12.5 Encounter for screening for malignant neoplasm of prostate
CPT/HCPCS: 80048; 80061; 80076; 82043; 82306; 82570; 83036; 84153; 84439; 84443; 85027; 86592; 86704; 86706; 86803; 87340; 87389; 87491; 87591

== ENCOUNTER 2024-09-17 11:00 | Outpatient (REF) | payer OTHER, SELFPAY | END 2024-09-17 11:01 | disposition home or self-care (01) | LOC: HO.LAB 11:00 | PROVIDERS: PCP Family Medicine; Visit Provider Urology | DX: R35.1 Nocturia (principal); N39.0 Urinary tract infection, site not specified; R39.12 Poor urinary stream | CPT/HCPCS: 51798; 81003; 87086; 99212 ==

== ENCOUNTER 2024-09-17 11:00 | Outpatient (AMB) | payer OTHER, SELFPAY ==
--- NOTE | 2024-09-17 11:06 | MHC.OFFVIS ---
Intake Visit Reasons: 6m/PSA/PVR(set) Intake Note: Patient is present for 6M/PSA/PVR Urology Medication:TERAZOSIN Antibiotic Allergy:NONE Blood Thinner:ASPIRIN TODAY'S PVR:0ML'S [place] Manager Required: No Allergies SEAFOOD Allergy (Intermediate, Uncoded 09/17/24 11:07) VOMITING AND DIARHEA HPI Comments Details: Juvencio is a pleasant Sudanese-speaking male. He is a patient of . He is seen for the following urologic conditions - lower urinary tract symptoms Sudanese translation provided in office by qualified medical records coder Continues with terazosin Lower urinary tract symptoms Background diabetes Bladder ultrasound 04/07 - trabeculated wall, 50 g prostate PSA - 08/07 0.5 PFSH Surgical History History of cardiac cath H/O colonoscopy Family History Sister Cancer Social History Household Members: Spouse and Children Alcohol intake: current Alcohol intake frequency: does not drink Office Procedures Post Void Residual Post Residual Void Post Void Residual (PVR): 0 67006-Euqz Void Residual by ultrasound Results AMB Urinalysis, Automated UA Leukoctes 70 Noa/uL Last Edit by PATITO Oglesby on 09/17/24 11:23 UA Nitrite Negative Last Edit by PATITO Oglesby on 09/17/24 11:23 UA Urobilinogen 0.2 mg/dL Last Edit by PATITO Oglesby on 09/17/24 11:23 UA Protein 15 mg/dL Last Edit by PATITO Oglesby on 09/17/24 11:23 UA pH 6.0 Last Edit by PATITO Oglesby on 09/17/24 11:23 UA Blood 0 Michael/uL Last Edit by PATITO Oglesby on 09/17/24 11:23 UA Specific [place] 1.025 Last Edit by PATITO Oglesby on 09/17/24 11:23 UA Ketone Positive Last Edit by PATITO Oglesby on 09/17/24 11:23 UA Bilirubin 1 mg/dL Last Edit by PATITO Oglesby on 09/17/24 11:23 UA Glucose 0 mg/dL Last Edit by PATITO Oglesby on 09/17/24 11:23 Results Reviewed Results Reviewed: Laboratory Last Values Urine pH (Auto) 6.0 09/17/24 11:23 Specific [place] (Auto) 1.025 09/17/24 11:23 Urine Protein (Auto) 15 mg/dL 09/17/24 11:23 Glucose (UA)(Auto) 0 mg/dL 09/17/24 11:23 Urine Ketones (Auto) Positive 09/17/24 11:23 Urine Blood (Auto) 0 Michael/uL 09/17/24 11:23 Urine Nitrite (Auto) Negative 09/17/24 11:23 Urine Bilirubin (Auto) 1 mg/dL 09/17/24 11:23 Urine Urobilinogen (Auto) 0.2 mg/dL 09/17/24 11:23 Leukocyte Esterase (Auto) 70 Noa/uL 09/17/24 11:23 Assessment & Plan Assessment & Plan Orders: Orders AMB Urinalysis Automated Today Z13.9 - Encounter for screening, unspecified Coding CPT Codes Post Residual Void - PVR CPT Code: 70000-Qevf Void Residual by ultrasound ([id number])
== END 2024-09-17 11:55 | disposition home or self-care (01) ==
PROVIDERS: PCP Family Medicine; Visit Provider Urology
DX: Z13.9 Encounter for screening, unspecified (principal)

== ENCOUNTER 2024-10-17 08:54 | Outpatient (AMB) | payer OTHER, SELFPAY ==
--- NOTE | 2024-10-17 09:00 | MHC.OFFVIS ---
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 Patient reports ongoing locking and catching daily for about 5 - 6 months. He states having pain when making a tight fist and when he tries opening his middle finger locks in place. 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 Patient states that he has very significant pain particularly at the level of the MCP joint of the left middle finger associated with this locking and catching. Patient denies any numbness or tingling in the left hand. Reports he would like to have the most definitive treatment option available. No other acute complaints or concerns at this time. [facility] Surgical History History of cardiac cath H/O colonoscopy Family History Sister Cancer Social History (Updated 10/17/24 @ 09:04 by Uma Ward) Household Members: Spouse and Children Alcohol intake: current Alcohol intake frequency: does not drink Patient Tobacco Use Status: Never used Tobacco Current occupational status: disabled Current occupation: right hand dominant Review of Systems Const All systems reviewed & are unremarkable except as noted in HPI and below Physical Exam Extrem Other: Patient is alert, oriented, and in no acute distress. Neuro: Normal sensation of the tips of all digits of the left hand at this time Vascular: Cap refill brisk Pain: Patient reports tenderness to palpation at the level of the A1 abbi of the left middle finger ROM: There is a visible palpable locking and catching of the patient's left middle finger Patient is able to flex and extend all other digits of the left hand fully and without difficulty Skin: No lacerations or abrasions. General: No ecchymosis, erythema, or evidence of infection. Psych: Appears grossly normal Affect normal Attitude cooperative Assessment & Plan Assessment & Plan (1) Trigger finger, left middle finger: Code(s): M65.332 - Trigger finger, left middle finger Category: Medical Plan 1. Trigger finger, left middle finger I educated the patient about the condition. I discussed both operative and nonoperative treatment options. The patient would like to proceed with surgery. The risks and benefits of operative treatment were discussed with the patient and the patient wishes to proceed with surgery. These risks include, but are not limited to, risk of damage to blood vessels, nerves, tendons, infection, recurrence, incomplete relief of preoperative symptoms, persistent pain, possible need for further surgery, and the risks associated with regional blocks and/or anesthesia. Plan is to take the patient to the operating room at some point in the next few weeks for the following procedures: 1. Left middle finger trigger release under local anesthesia All of the preoperative paperwork including the consent was discussed today. All of the patient's questions were answered in the clinic today. The patient understands that they will be in contact with our surgical corsetier to discuss scheduling their procedure. Patient reports diabetes, last A1c 6.5 Denies blood thinners, asthma, heart issues, lung issues, kidney issues, or current smoking. Coding Level of Care Code New Pt Level 4 (84287) Diagnoses Trigger finger, left middle finger M65.332
== END 2024-10-17 09:31 | disposition home or self-care (01) ==
PROVIDERS: PCP Family Medicine
DX: M65.332 Trigger finger, left middle finger (principal)
CPT/HCPCS: 99204

== ENCOUNTER → 2024-10-17 08:54 | Outpatient (BNVA) | payer OTHER, SELFPAY | PROVIDERS: PCP Family Medicine | DX: M65.332 Trigger finger, left middle finger (principal) | CPT/HCPCS: 99202 ==

== ENCOUNTER 2024-11-12 09:49 | Outpatient (AMB) | payer OTHER, SELFPAY ==
--- NOTE | 2024-11-12 09:59 | MHC.OFFVIS ---
Intake Visit Reasons: cystoscopy(Nocturia) Intake Note: Patient is present for Cystoscopy Urology Medication:TERAZOSIN Antibiotic Allergy:NONE Blood Thinner:ASPIRIN Lot:[id number] Exp:08/18/27 Automatic Toe Laster Required: No Allergies SEAFOOD Allergy (Intermediate, Uncoded 11/12/24 10:00) VOMITING AND DIARHEA HPI Comments Details: Juvencio is a pleasant Cymro-speaking male. He is a patient of . He is seen for the following urologic conditions - lower urinary tract symptoms Cymro translation provided in office by qualified medical insurance verifier Office cystoscopy Open Continue therapy Three-month follow-up Lower urinary tract symptoms Background diabetes Bladder ultrasound 04/07 - trabeculated wall, 50 g prostate Terazosin 5 mg PSA - 08/07 0.5 PFSH Surgical History History of cardiac cath H/O colonoscopy Family History Sister Cancer Social History (Updated 10/17/24 @ 09:04 by Uma Ward) Household Members: Spouse and Children Alcohol intake: current Alcohol intake frequency: does not drink Patient Tobacco Use Status: Never used Tobacco Current occupational status: disabled Current occupation: right hand dominant Review of Systems Const Denies chills and Denies fever(s) Card Reports no additional complaints and Denies syncope Resp Denies cough GI Denies abdominal pain and Denies heartburn Reports as per HPI and Denies change in libido Neuro Denies syncope Psych Denies change in libido Endo Denies change in libido Physical Exam Const General: cooperative, healthy appearing, comfortable and no acute distress Orientation/consciousness: patient oriented x3 HEENT Face and sinus: Yes normal facial exam Mouth: moist mucous membranes Neck Neck: Yes normal visual inspection, Yes full ROM and Yes trachea midline Chest Chest palpation & inspection: normal inspection of the chest Resp Effort & Inspection: normal respiratory effort, able to speak in complete sentences and no respiratory distress GI Inspection: Yes normal to inspection Back/Spine/Pelvis Cervical Spine: normal cervical lordosis Thoracic/Lumbar Spine: thoracic and lumbar spine normal to inspection Skin General skin exam: no rashes or lesions noted Neuro General: patient oriented x3, gait normal, tone normal and moves all extremities Extrem General: Yes normal to inspection and Yes capillary refill normal Office Procedures Cystoscopy Consent Discussed risk and benefit or proposed procedure with the patient. Information consent for procedure given to the patient. Discussed technical aspects, risks, benefits and alternatives in full. Addressed all of the patient's questions and concerns regarding the procedure. The patient demonstrated knowledge and understanding. They wish to proceed with this procedure. Preparation The patient was prepped in the usual manner. A professor of geography was present and in the room. Genitalia was prepped with betadine solution in a sterile manner. Lidocaine Jelly 2% was placed into the urethra and 16Fr flexible Olympus cystoscope was inserted into the meatus after adequate lubrication. Procedure Cystoscopy performed using a disposable Urovue digital 16 Welsh cystoscope. Meatus uncircumcised, normal position Urethra anterior and posterior urethra Prostatic Urethra unremarkable Bladder examination with retroflexion of cystoscope Bladder Orifices normal shape and position Bladder Capacity median Trabeculations - Cellule Formation - Diverticulum Formation - Mucosal Erythema - Bladder Tumor - [id number] DISPOSABLE SCOPE URO-G FLEXIBLE SCOPE Procedure code (CPT) selection complete Office Meds lidocaine HCl 2 % mucosal jelly in applicator Performing Provider: Kelechi Gutierrez MD Performing Location: [facility] [place] [facility] Administered by: Rachelle Hall RN on 11/12/24 10:52 Dose Route Admin Location Dispensed Lot Number Expiration Date [facility] Speech Writer 10 mL intra-urethral 10 mL nitrofurantoin monohydrate/macrocrystals 100 mg capsule Performing Provider: Kelechi Gutierrez MD Performing Location: [facility] [place] [facility] Administered by: Rachelle Hall RN on 11/12/24 10:52 Dose Route Admin Location Dispensed Lot Number Expiration Date [facility] Speech Writer 100 mg PO 1 cap Results AMB Urinalysis, Automated UA Leukoctes 15 Noa/uL Last Edit by PATITO Oglesby on 11/12/24 10:11 UA Nitrite Negative Last Edit by PATITO Oglesby on 11/12/24 10:11 UA Urobilinogen 0.2 mg/dL Last Edit by PATITO Oglesby on 11/12/24 10:11 UA Protein 30 mg/dL Last Edit by PATITO Oglesby on 11/12/24 10:11 UA pH 6.0 Last Edit by PATITO Oglesby on 11/12/24 10:11 UA Blood 0 Michael/uL Last Edit by PATITO Oglesby on 11/12/24 10:11 UA Specific [place] 1.025 Last Edit by PATITO Oglesby on 11/12/24 10:11 UA Ketone Negative Last Edit by PATITO Oglesby on 11/12/24 10:11 UA Bilirubin 1 mg/dL Last Edit by PATITO Oglesby on 11/12/24 10:11 UA Glucose 0 mg/dL Last Edit by PATITO Oglesby on 11/12/24 10:11 Results Reviewed Results Reviewed: Laboratory Last Values Urine pH (Auto) 6.0 11/12/24 10:10 Specific [place] (Auto) 1.025 11/12/24 10:10 Urine Protein (Auto) 30 mg/dL 11/12/24 10:10 Glucose (UA)(Auto) 0 mg/dL 11/12/24 10:10 Urine Ketones (Auto) Negative 11/12/24 10:10 Urine Blood (Auto) 0 Michael/uL 11/12/24 10:10 Urine Nitrite (Auto) Negative 11/12/24 10:10 Urine Bilirubin (Auto) 1 mg/dL 11/12/24 10:10 Urine Urobilinogen (Auto) 0.2 mg/dL 11/12/24 10:10 Leukocyte Esterase (Auto) 15 Noa/uL 11/12/24 10:10 Assessment & Plan Assessment & Plan (1) Nocturia more than twice per night: Code(s): R35.1 - Nocturia Category: Medical (2) Weak urinary stream: Code(s): R39.12 - Poor urinary stream Category: Medical Plan Trial tadalafil bladder stability Orders: Orders AMB Cystoscopy 11/12/24 R39.12 - Poor urinary stream, R35.1 - Nocturia AMB Urinalysis Automated 11/12/24 Z13.9 - Encounter for screening, unspecified Medications: New tadalafil 5 mg PO DAILY 90 tabs 0RF sexual activity 90 days R35.1 - Nocturia Patient Instructions: This note is constructed using voice recognition software. While every effort has been made to ensure accuracy field crop harvest contractor errors may have been included. Imaging studies, laboratory and physical exam results were discussed and reviewed in detail. No major barriers to patient understanding were identified. An opportunity to ask questions regarding the treatment plan was provided. All questions were answered. The patient expressed understanding and agreement with the above treatment plan. The patient is aware they should contact our office by phone for worsening of their current condition or the appearance of new urologic symptoms. Compliance is encouraged with any medications and followup testing that is ordered. It is a privilege to participate in the urologic care of your patient. If you have any questions or concerns regarding treatment for the above conditions, or other urologic issues, please do not hesitate to contact me. The office telephone contact is [phone]. Sincerely, Dr Kelechi Gutierrez MD, [facility] - Urology Compassionate Specialist Care for the Genitourinary System Coding Level of Care Code Est Pt Level 3 (81287) Diagnoses Nocturia more than twice per night R35.1 Weak urinary stream R39.12 CPT Codes Cystoscopy - CPT: 28900-[id number] ([id number])
--- OUTSIDE RECORDS SUMMARY | 2024-11-12 11:35 | XMS_ITS | Encounter Summary ---
Author Organization [employer] Address [address] [place] [address] Care Team Providers Care Python Engineer Name Role Phone Marbella Sofia DO Primary Care Provider [phone] Encounter Details Date Type Department Care Team (Late st Contact Info) Description 01/23/2024 Orders Only [facility] MEDICINE [address] [place] [address] Provider, MD Eron Social History Tobacco Use Types Packs/Day Years Used Date Smoking Tobacco: Former Cigarettes Passive Smoke Exposure: Past Smokeless Tobacco: Never Alcohol Use Standard Drinks/Week Comments Never 0 (1 standard drink = 0.6 oz pur e alcohol) Depression Answer Date Recorded Patient Health Questionnaire-9 Score 16 11/28/2022 Housing Stability Answer Date Recorded What is your housing situation today? I have luc napier 08/06/[address] you li ve. Do you have problems with any of the following? None of the above 08/06/2023 Food Insecurity Answer Date Recorded Within the past 12 months, y ou worried that your food would run out before you got money to buy more: Never True 08/06/2023 Within the past 12 months,th e food you bought just didn't last and you didn't have enough money to get more: Never True Transportation Answer Date Recorded In the past 12 months, has l ack of transportation kept you from medical appts, meetings, work or from getting things needed for daily living? Yes, it has kept me from medical appointments or getting medications. 07/25/2023 Utilities Answer Date Recorded In the past 12 months, has t he electric, gas, oil or water company threatened to shut off services in your home? No 08/06/2023 Depression Answer Date Recorded Patient Health Questionnaire-2 Score 2 02/13/2023 Sex and Gender Information Value Date Recorded Sex Assigned at Male 08/14/2022 10:20 AM EDT Legal Sex Male 10:20 AM EDT Gender Identity Male 08/14/2022 10:20 AM EDT Sexual Orientation Straight 08/14/2022 10 :20 AM EDT documented as of this encounter Plan of Treatment Upcoming Encounters Date Type Department Care Team (Late st Contact Info) Description 12/15/2024 9:00 AM EST Office Visit [facility] OPTOMETRY [address] [place] [address] Gina Kirkpatrick, OD [address] [place] [address] documented as of this encounter Procedures Procedure Name Priority Date/Time Associated Diagnosis Comments HM COLONOSCOPY Routine 08/07/2019 3:09 PM EDT documented in this encounter Results * Hm Colonoscopy (08/07/2019 3:09 PM EDT) us Historical Provider HEALTH MAINTENANCE Final Result documented in this encounter Visit Diagnoses Not on filedocumented in this encounter Additional Health Concerns Assessment Noted Time PHQ-9 Depression Total Score: 16 11/28/ 023 10:33 AM EST documented as of this encounter Care Teams Python Engineer Relationship Specialty Start Date End Date Marbella Sofia DO [address] [place] [address] PCP - General Family Medicine 05/01/14 documented as of this encounter
--- OUTSIDE RECORDS SUMMARY | 2024-11-12 11:35 | XMS_ITS ---
Author Organization [facility] Address [address] [place] [address] Care Team Providers Care Radiation Control Technician Name Role Phone Marbella Sofia M.D. Primary Care Provider Mary Leighton Whipple Jr REASON FOR VISIT Patient presents today for constipation Encounters Encounter Location Date Provider Diagnosis [facility] [address] [place] [address] 11/06/2024 Leighton Plasencia Jr PLAN OF TREATMENT Next Appt Details Provider Name:Leighton rothman Jr, 02/11/2025 10:00:00 AM, [address], [address], [place], [address],
--- OUTSIDE RECORDS SUMMARY | 2024-11-12 11:35 | XMS_ITS | Encounter Summary ---
Author Organization [facility] Address [address] [place] [id number] Care Team Providers Care Property Caretaker Name Role Phone Marbella Sofia DO Primary Care Provider [phone] Encounter Details Date Type Department Care Team (Latest Contact Info) Description 01/26/2022 Abstract [facility] Dental, Provider, DDS Social History Tobacco Use Types Packs/Day Years Used Date Smoking Tobacco: Never Assessed Sex and Gender Information Value Date Recorded Sex Assigned at Male 08/14/2022 10:20 AM EDT Legal Sex Male 10:20 AM EDT Gender Identity Male 08/14/2022 10:20 AM EDT Sexual Orientation Straight 08/14/2022 10 :20 AM EDT documented as of this encounter Plan of Treatment Upcoming Encounters Date Type Department Care Team (Late st Contact Info) Description 12/15/2024 9:00 AM EST Office Visit [facility] OPTOMETRY [address] [place] [address] Gina Kirkpatrick, OD [address] [place] [address] documented as of this encounter Visit Diagnoses Not on filedocumented in this encounter Care Teams Property Caretaker Relationship Specialty Start Date End Date Marbella Sofia DO [address] [place] [address] PCP - General Family Medicine 05/01/14 documented as of this encounter
--- OUTSIDE RECORDS SUMMARY | 2024-11-12 11:35 | XMS_ITS | Encounter Summary ---
Author Organization [employer] [facility] Address [address] 7[address] [place] [address] Care Team Providers Care Hydro Generation Supervisor Name Role Phone Marbella Sofia DO Primary Care Provider [phone] Encounter Details Date Type Department Care Team (Late st Contact Info) Description 11/27/2022 Abstract [facility] MEDICINE [address] [place] [address] Marbella Sofia DO [address] [place] [address] Social History Tobacco Use Types Packs/Day Years Used Date Smoking Tobacco: Never Assessed Depression Answer Date Recorded Patient Health Questionnaire-9 Score 16 11/28/2022 Sex and Gender Information Value Date Recorded Sex Assigned at Male 08/14/2022 10:20 AM EDT Legal Sex Male 10:20 AM EDT Gender Identity Male 08/14/2022 10:20 AM EDT Sexual Orientation Straight 08/14/2022 10 :20 AM EDT COVID-19 Exposure Response Date Recorded In the last 10 days, have yo u been in contact with someone who was confirmed or suspected to have Coronavirus/COVID-19? No / Unsure 11/28/2022 9:31 AM EST documented as of this encounter Plan of Treatment Upcoming Encounters Date Type Department Care Team (Late st Contact Info) Description 12/15/2024 9:00 AM EST Office Visit [facility] OPTOMETRY [address] [place] [address] Gina Kirkpatrick, OD [address] [place] [address] documented as of this encounter Visit Diagnoses Not on filedocumented in this encounter Care Teams Hydro Generation Supervisor Relationship Specialty Start Date End Date Marbella Sofia DO [address] [place] [address] PCP - General Family Medicine 05/01/14 documented as of this encounter
--- OUTSIDE RECORDS SUMMARY | 2024-11-12 11:35 | XMS_ITS | Patient Health Record ---
Author Organization [facility] Address [address] [place] [address] Care Team Providers Care Audio Visual Director Name Role Phone Marbella Sofia M.D. Primary Care Provider Mary vailable Leighton Plasencia Jr REASON FOR REFERRAL No Information SOCIAL HISTORY Sex Assigned At : Social History Observation Description Sex Assigned At Unknown Encounters Encounter Location Date Provider Diagnosis [facility] [address] [place] [address] [address] [place] [address] 11/06/2024 Leighton Plasencia Jr [facility] [address] [place] [address] 11/06/2024 Leighton Plasencia Jr PLAN OF TREATMENT Next Appt Details Provider Name:Leighton rothman Jr, 02/11/2025 10:00:00 AM, [address] [place] [address], [address], [place], [address], Insurance Providers Payer Name Payer Address Payer Phone Subscriber Number Group Number Insured Name Patient Relationship to Insured Coverage Start Date Coverage End Date [facility] [address] [place] [address] [id number] RODNEY UREÑA Self - patient is the insured MEDICAID OF [employer] [address] [place] [phone] [id number] RODNEY UREÑA Self - patient is the insured
--- OUTSIDE RECORDS SUMMARY | 2024-11-12 11:36 | XMS_ITS | Encounter Summary ---
Author Organization [employer] Address [address] [place] [address] Care Team Providers Care Jawbone Puller Name Role Phone Radha Sofiafer Primary Care Provider + [phone] Reason for Visit * Reason Comments Med Refill Encounter Details Date Type Department Care Team (Late st Contact Info) Description 10/23/2024 Refill [facility] MED[facility] [address] [place], [place] [phone] [facility] [address] [place], [place] [phone] Chronic constipation Social History Tobacco Use Types Packs/Day Years Used Date Smoking Tobacco: Former Cigarettes Passive Smoke Exposure: Past Smokeless Tobacco: Never Alcohol Use Standard Drinks/Week Comments Never 0 (1 standard drink = 0.6 oz pur e alcohol) Depression Answer Date Recorded Patient Health Questionnaire-9 Score 16 11/28/2022 Housing Stability Answer Date Recorded What is your housing situation today? I have luclynn napier 08/06/[address] you [...] Description 12/15/2024 9:00 AM EST Office Visit [facility] OPTOMETRY [address] [place] [address] Gina Kirkpatrick, OD [address] [place] [address] documented as of this encounter Visit Diagnoses Diagnosis Chronic constipation Unspecified constipation documented in this encounter Additional Health Concerns Assessment Noted Time PHQ-9 Depression Total Score: 16 11/28/ 023 10:33 AM EST documented as of this encounter Care Teams Jawbone Puller Relationship Specialty Start Date End Date Marbella Sofia DO [address] [place] [address] PCP - General Family Medicine 05/01/14 documented as of this encounter
--- OUTSIDE RECORDS SUMMARY | 2024-11-12 11:36 | XMS_ITS | Encounter Summary ---
Author Organization [employer] Address [address] [place] [address] Care Team Providers Care Ash Pit Worker Name Role Phone Marbella Sofia DO Primary Care Provider + [phone] Reason for Visit * Reason Comments Med Refill Encounter Details Date Type Department Care Team (Late st Contact Info) Description 11/01/2024 Refill [facility] MEDICINE [address] [place], [place] [phone] Marbella Sofia DO [address] [place], [place] [phone] Chronic gastroesophageal reflux disease Social History Tobacco Use Types Packs/Day Years [...] Description 12/15/2024 9:00 AM EST Office Visit [facility] OPTOMETRY [address] [place] [address] Gina Kirkpatrick, OD [address] [place], [place] [phone] documented as of this encounter Visit Diagnoses Diagnosis Chronic gastroesophageal reflux disease documented in this encounter Additional Health Concerns Assessment Noted Time PHQ-9 Depression Total Score: 16 11/28/ 023 10:33 AM EST documented as of this encounter Care Teams Ash Pit Worker Relationship Specialty Start Date End Date Marbella Sofia DO [address] [place], [place] [phone] PCP - General Family Medicine 05/01/14 documented as of this encounter
--- OUTSIDE RECORDS SUMMARY | 2024-11-12 11:36 | XMS_ITS ---
Author Organization [facility] Address [address] [place] [address] Care Team Providers Care Class C Truck Driver Name Role Phone Marbella Sofia M.D. Primary Care Provider Mary Leighton Whipple Jr [phone] REASON FOR VISIT R/S OV Encounters Encounter Location Date Provider Diagnosis [facility] [address] [place] [address] 11/06/2024 Leighton Plasencia Jr PLAN OF TREATMENT Next Appt Details Provider Name:Leighton rothman Jr, 02/11/2025 10:00:00 AM, [address], [address], [place], [address],
--- OUTSIDE RECORDS SUMMARY | 2024-11-12 11:36 | XMS_ITS | Clinical Summary ---
Author Organization [employer] Address [address] [facility] [address] [place] [address] Care Team Providers Care Injection Mold Tooling Technician Name Role Phone Radha Sofiafer Primary Care Provider Allergies Active Allergy Reactions Criticality Noted Date Comments Chlorpromazine 01/02/2011 Other reaction(s): Tardive Dyskenisia Diltiazem Unknown 01/25/2011 Shellfish Allergy 12/18/2022 Medications clonazePAM (KlonoPIN) 2 MG tablet TAKE 1 TABLET BY MOUTH AT BEDTIME Active ipratropium (Atrovent) 0.03 % nasal spray USE 2 SPRAYS IN EACH NOSTRIL THREE TIMES DAILY Active isosorbide mononitrate ER (Imdur) 30 MG 24 hr tablet TAKE 1 TABLET BY MOUTH EVERY MORNING Active ranolazine (Ranexa) 1000 MG 12 hr tablet TAKE 1 TABLET BY MOUTH TWICE DAILY IN THE MORNING AND AT BEDTIME Active sertraline (Zoloft) 100 MG tablet TAKE 1 TABLET BY MOUTH EVERY MORNING Active traZODone (Desyrel) 100 MG tablet TAKE 1 TABLET BY MOUTH AT BEDTIME NEEDED Active Alcohol Swabs (Alcohol Prep) 70 % pads USE DAILY DIRECTED 100 each Active Blood Glucose Monitoring Suppl (KrowdPad) w/Device kit 1 each 2 times daily. TEST BLOOD SUGAR TWICE DAILY 1 kit Active Calcium Antacid Extra Strength 750 MG chewable tabletIndications:C hronic gastroesophageal reflux disease CHEW 1 TABLET BY MOUTH TWICE DAILY IN THE MORNING AND IN THE EVENING NEEDED FOR HEARTBURN 30 tablet 11 024 Active Fiber-Lax 625 MG tabletIndications:O ther constipation TAKE 2 TABLETS BY MOUTH ONCE DAILY IN THE MORNING 180 tablet 1 024 Active Lancets (OneTouch Delica Plus [id number]) misc 1 each 2 times daily. TEST BLOOD SUGAR TWICE DAILY 100 each 11 Active famotidine (Pepcid) 40 MG tablet TAKE 1 TABLET BY MOUTH AT BEDTIME 30 tablet 11 Active lisinopril 2.5 MG tablet TAKE 1/2 TABLET BY MOUTH EVERY MORNING 45 tablet 3 Active levothyroxine (Synthroid, Levoxyl) 88 MCG tablet TAKE 1 TABLET BY MOUTH EVERY MORNING 90 tablet 3 024 Active atorvastatin (Lipitor) 80 MG tablet TAKE 1 TABLET BY MOUTH AT BEDTIME 90 tablet 3 024 Active metFORMIN XR (Glucophage-XR) 500 MG 24 hr tablet TAKE 1 TABLET BY MOUTH EVERY EVENING WITH MEALS 90 tablet 3 024 Active D3 Super Strength 50 MCG (2000 UT) capsuleIndications: Vitamin D deficiency TAKE 1 CAPSULE BY MOUTH EVERY MORNING 90 capsule 3 024 Active FeroSul 325 (65 Fe) MG tabletIndications:A nemia, unspecified type TAKE 1 TABLET BY MOUTH EVERY MORNING 90 tablet 3 024 Active metoprolol succinate XL (Toprol-XL) 50 MG 24 hr tablet Take 50 mg by mouth in the morning. Active terazosin (Hytrin) 5 MG capsule Take 5 mg by mouth at bedtime. Active glucose blood (OneTouch Verio) test stripIndications:Ty pe 2 diabetes mellitus without complication, without long-term current use of insulin ([facility]) USE TO TEST BLOOD SUGAR TWICE DAILY 50 strip 11 024 Active aspirin (Aspirin Low Dose) 81 MG EC tabletIndications:T ype 2 diabetes mellitus with other specified complication, unspecified whether nursing home insulin use ([facility]) TAKE 1 TABLET BY MOUTH AT BEDTIME 90 tablet 024 Active docusate sodium (Colace) 100 MG capsuleIndications: Chronic constipation TAKE 1 CAPSULE BY MOUTH TWICE DAILY IN THE MORNING AND IN THE EVENING 180 capsule 025 Active gabapentin (Neurontin) 100 MG capsule TAKE 1 CAPSULE BY MOUTH AT BEDTIME 30 capsule 3 025 Active pantoprazole (ProtoNix) 40 MG EC tabletIndications:C hronic gastroesophageal reflux disease Do not crush, chew, or split.TAKE 1 TABLET BY MOUTH TWICE DAILY IN THE MORNING AND IN THE EVENING 60 tablet 11 025 Active pantoprazole (ProtoNix) 40 MG EC tabletIndications:C hronic gastroesophageal reflux disease TAKE 1 TABLET BY MOUTH TWICE DAILY IN THE MORNING AND IN THE EVENING 60 tablet 11 024 2024 Discontinued(R eorder (will not trigger notification to Pharmacy)) docusate sodium (Colace) 100 MG capsuleIndications: Chronic constipation TAKE 1 CAPSULE BY MOUTH TWICE DAILY IN THE MORNING AND IN THE EVENING 180 capsule 024 2024 Discontinued gabapentin (Neurontin) 100 MG capsule Take 1 capsule (100 mg) by mouth at bedtime. 30 capsule 3 024 2024 Discontinued Active Problems Problem Noted Date Diagnosed Date Urinary frequency 07/16/2024 Peripheral polyneuropathy 07/16/2024 Cardiomyopathy 07/16/2024 Pulmonary nodules 11/28/2022 Generalized osteoarthritis 11/28/2022 Healthcare maintenance 11/28/2022 Chronic constipation 11/28/2022 Hypothyroidism 10/02/2016 Generalized anxiety disorder 10/20/2015 Chronic low back pain 07/28/2015 Coronary artery disease 07/28/2015 Essential hypertension 07/28/2015 Chronic gastroesophageal reflux disease 07/28/20 15 Hyperlipidemia 07/28/2015 Tinnitus 07/28/2015 Tubular adenoma of colon 07/28/2015 Type 2 diabetes mellitus 07/28/2015 Resolved Problems Problem Noted Date Diagnosed Date Resolved Date Chronic back pain 11/28/2022 11/28/2022 Osteoarthritis 11/28/2022 11/28/2022 Encounters Date Type Department Care Team Description 11/01/2024 Refill [facility] [address] [place], [place] [phone] Marbella Sofia DO Chronic gastroesophageal reflux disease 11/01/2024 Refill [facility] [address], [place] [phone] Name, MD Joaquín Chronic gastroesophageal reflux disease 10/23/2024 Refill [facility] [address], [place] [phone] [place], Taylor, STEM SHAPER Chronic constipation 10/08/2024 Refill [facility] [address] [place], [place] [phone] Samaria Oneill NP Type 2 diabetes mellitus with other specified complication, unspecified whether watermaster insulin use ([facility]) 09/17/2024 Orders Only GENERIC EXTERNAL DATA DEPARTMENT Provider, Generic External Data 09/02/2024 Refill [facility] [address] [place], [place] [phone] Marbella Sofia DO Type 2 diabetes mellitus without complication, without long-term current use of insulin ([facility]) 08/25/2024 Telephone [facility] [address], [place] [phone] Nicole Walton RN Results 08/24/2024 Orders Only [facility] [address], [place] [phone] Marbella Sofia DO Anemia, unspecified type (Primary Dx) from Last 3 Months Immunizations Name Administration Dates Next Due Hep B, adult 04/23/2018,03/02/2017,01/23/2017 Influenza High-dose Quadriva lent Preservative Free 06/25/2023,08/10/2021,09/20/2020 Influenza injectable quadriv alent IIV4 with preservative 08/23/2017,10/02/2016,10/20/2015 Influenza injectable quadriv alent preservative free 11/28/2022,09/15/2019 Influenza, High Dose Seasona l, Preservative Free 07/16/2024,08/28/2018 Influenza, IIV3, injectable 09/24/2014, 0 Influenza, Split (incl. susan fied surface antigen) 06/30/2013,11/05/2012 Moderna Covid-19 Vaccine 12+ 03/08/2022, 08/31/2021,01/14/2021,12/17 Moderna Covid-19 Vaccine 6+ Bivalent 11/07/2022 Pfizer Covid-19 Vaccine 12+ 07/16/2024, 3 Pneumococcal Conjugate PCV 13 05/29/2016 Pneumococcal Conjugate PCV 20 03/04/2024 Pneumococcal Polysaccharide PPSV23 04/23/2018, Tdap 04/21/2010 Zoster, Recombinant 09/16/2020,05/31/2020 Zoster, live 01/20/2016 Family History Medical History Relation Name Comments Alzheimer's disease Father Hypertension Father Cancer Mother Gastric Cancer Hypertension Mother Colon cancer Sister Relation Name Status Comments Father Mother Sister Social History Tobacco Use Types Packs/Day Years Used Date Smoking Tobacco: Former Cigarettes Passive Smoke Exposure: Past Smokeless Tobacco: Never Tobacco Cessation:Counseling Given: Not Answered Alcohol Use Standard Drinks/Week Comments Never 0 [...] Orientation Straight 08/14/2022 10 :20 AM EDT Last Filed Vital Signs Vital Sign Reading Time Taken Comments Blood Pressure 108/56 07/16/2024 2:39 PM EDT Pulse 71 07/16/2024 10:56 AM EDT Temperature 36.1 ??C (97 ??F) 07/16/2024 10:56 AM EDT Respiratory Rate 15 07/16/2024 10:56 AM EDT Oxygen Saturation 97% 03/04/2024 11:25 AM EDT Inhaled Oxygen Concentration - - Weight 75.8 kg (167 lb) 07/16/2024 10:56 AM EDT Height 167.6 cm (5' 6 ) 07/16/2024 10:56 AM EDT Body Mass Index 26.95 07/16/2024 10:56 AM EDT Plan of Treatment Upcoming Encounters Date Type Department Care Team (Late st Contact Info) Description 12/15/2024 9:00 AM EST Office Visit [facility] [address] [place], [place] [phone] Casimiro, Gina, OD [address] [place] [address] Health Maintenance Due Date Last Done Comments CT Colonography 1950 FIT DNA/Cologuard 1950 FIT 1950 FOBT 1950 Sigmoidoscopy 1950 Diabetes: Foot Exam 1960 Alcohol/Substance Use Screening 1962 RSV Patients and Patients Aged 60 years or older (1 - Risk 60-74 years 1-dose series) 2010 DTaP/Tdap/Td Vaccines (2 - Td or Tdap) 04/21/2020 04/21/2010 Depression Monitoring (PHQ-9) 08/16/2023 02/13/2023, 11/28/2022 Depression Screening 02/14/2024 02/13/2023, 11/28/19 23 SDOH Screening 02/14/2024 02/13/2023 Colonoscopy 08/07/2024 08/07/2019 Colorectal Cancer Screening 08/07/2024 Eye Exam 12/14/2024 12/14/2022, 11/2022, 12/14/2022, Additional history exists Diabetes: Hemoglobin A1C 02/02/2025 024, 07/16/2024, 03/04/2024, Additional history exists Tobacco Screening 07/16/2025 07/16/2024 Diabetes: Urine Protein Screening 08/04/2025 08/04/2024, 05/03/2022, 11/22/2020 Lipid Panel 08/04/2025 08/04/2024, 10/16, 02/19/2023, Additional history exists Hepatitis B Vaccines Completed 04/23/2018, 03/02/2017, 01/23/2017 Zoster Vaccines Completed 09/16/2020, 05/15, 01/20/2016 Pneumococcal Vaccine: 50+ Years Completed 03/04/2024, 04/23/2018, 05/29/2016, Additional history exists COVID-19 Vaccine Completed 07/16/2024, , 11/07/2022, Additional history exists Influenza Vaccine Completed 07/16/2024, , 11/28/2022, Additional history exists Hepatitis C Screening Completed 08/04/2024, 024 HIB Vaccines Aged Out No longer eligi ble based on patient's age to complete this topic HPV Vaccines Aged Out No longer eligi ble based on patient's age to complete this topic Hepatitis A Vaccines Aged Out No long er eligible based on patient's age to complete this topic IPV Vaccines Aged Out No longer eligi ble based on patient's age to complete this topic Meningococcal Vaccine Aged Out No janes adiel eligible based on patient's age to complete this topic RSV under 20 months Aged Out No longe r eligible based on patient's age to complete this topic Rotavirus Vaccines Aged Out No longer eligible based on patient's age to complete this topic Procedures Procedure Name Priority Date/Time Associated Diagnosis Comments CULTURE, URINE, ROUTINE Routine 09/17/2024 11:00 AM EST HEPATITIS C AB W/REFL TO HCV RNA, QN, PCR Routine 08/04/2024 9:48 AM EDT Type 2 diabetes mellitus without complication, without long-term current use of insulin (CMS/HCC) Essential hypertension Other hyperlipidemia Generalized anxiety disorder Coronary artery disease involving venetie coronary artery of venetie heart, unspecified whether angina present Hypothyroidism, unspecified type Chronic gastroesophageal reflux disease Chronic constipation Urinary frequency Peripheral polyneuropathy Generalized osteoarthritis Chronic bilateral low back pain, unspecified whether sciatica present Fatigue, unspecified type Sleep-disordered breathing Trigger middle finger of left hand Healthcare maintenance Encounter for immunization HEMOGLOBIN A1C Routine 08/04/2024 9:48 AM EDT Type 2 diabetes mellitus without complication, without long-term current use of insulin ([facility]) Essential hypertension Other hyperlipidemia Generalized anxiety disorder Coronary artery disease involving venetie coronary artery of venetie heart, unspecified whether angina present Hypothyroidism, unspecified type Chronic gastroesophageal reflux disease Chronic constipation Urinary frequency Peripheral polyneuropathy Generalized osteoarthritis Chronic bilateral low back pain, unspecified whether sciatica present Fatigue, unspecified type Sleep-disordered breathing Trigger middle finger of left hand Healthcare maintenance Encounter for immunization LIPID PANEL, STANDARD Routine 08/04/2024 9:48 AM EDT Type 2 diabetes mellitus without complication, without long-term current use of insulin (CMS/HCC) Essential hypertension Other hyperlipidemia Generalized anxiety disorder Coronary artery disease involving venetie coronary artery of venetie heart, unspecified whether angina present Hypothyroidism, unspecified type Chronic gastroesophageal reflux disease Chronic constipation Urinary frequency Peripheral polyneuropathy Generalized osteoarthritis Chronic bilateral low back pain, unspecified whether sciatica present Fatigue, unspecified type Sleep-disordered breathing Trigger middle finger of left hand Healthcare maintenance Encounter for immunization ALBUMIN, RANDOM URINE W/CREATININE Routine 08/04/2024 9:45 AM EDT Type 2 diabetes mellitus without complication, without long-term current use of insulin ([facility]) Essential hypertension Other hyperlipidemia Generalized anxiety disorder Coronary artery disease involving venetie coronary artery of venetie heart, unspecified whether angina present Hypothyroidism, unspecified type Chronic gastroesophageal reflux disease Chronic constipation Urinary frequency Peripheral polyneuropathy Generalized osteoarthritis Chronic bilateral low back pain, unspecified whether sciatica present Fatigue, unspecified type Sleep-disordered breathing Trigger middle finger of left hand Healthcare maintenance Encounter for immunization HM COLONOSCOPY Routine 08/07/2019 3:09 PM EDT from Last 3 Months or Most Recently Relevant to Health Maintenance Results * Culture, Urine, Routine (09/17/2024 11:00 AM EST) Urine Urine specimen obtained by clean catch procedure / Unknown 09/17/2024 11:00 AM EST 09/17/2024 4:31 PM EST Comment:[facility] - 09/19/2024 12:14 PM EST Urine Culture No growth. Specimen Source: Urine clean catch Generic External Data Provider LAB MICROBIOLOGY - GENERAL ORDERABLES Final Result Performing Organization Address [facility] Co de Phone Number [facility] [address] [place] [phone] * Hepatitis C Antibody with Reflex to HCV, RNA, Quantitative, Real-Time PCR (08/04/2024 9:48 AM EDT) Hepatitis C Antibody Nonreactive Nonreactive [facility] Comment:Antibodies to HCV no t detected; does not exclude early acuteHCV infection. Blood Venous blood specimen / Unknown 08/04/2024 9:48 AM EDT 08/04/2024 9:48 AM EDT Marbella Sofia DO LAB BLOOD ORDERABLES Final R esult Performing Organization Address [facility] Co de Phone Number [facility] [address] [place] [phone] * (ABNORMAL) Hemoglobin A1c (08/04/2024 9:48 AM EDT) Hemoglobin A1c 6.5(H) <6.0 % [facility] Comment:Hemoglobin A1C Refer ence Range Adults: 4.8 - 6.0 % Non diabetic: < 6.0 % Goal: < 7.0 %Additional Action Suggested: > 8.0 %Note: Hemoglobin A1c results are invalid for patients with abnormal amounts of HbF. Blood transfusions may impact the HbA1c concentration in the patient sample. Estimated Average Glucose 140 mg/dL [facility] Comment:eAG = Estimated ave rage glucose which is %A1C expressed asaverage glucose, using the formula of the J4H-[id number] Glucose study (ADAG), Diabetes Care, Vol.31,#8,May. 2007 Blood Venous blood specimen / Unknown 08/04/2024 9:48 AM EDT 08/04/2024 9:48 AM EDT Marbella Sofia DO LAB BLOOD ORDERABLES Final R esult Performing Organization Address City/[facility]/ZIP Co de Phone Number [facility] [address] [place] [phone] * (ABNORMAL) Lipid Panel, Standard (08/04/2024 9:48 AM EDT) Triglycerides 169(H) <150 mg/dL [facility] Comment:Desirable Triglyceri de: less than 150 mg/dLBorderline High Triglyceride 150-199 mg/dLHigh Triglyceride: 200-499 mg/dLVery High Triglyceride: greater than or equal to 5OO mg/dL Cholesterol 124 <200 mg/dL [facility] Comment:Desirable Cholestero l: less than 200 mg/dLBorderline High Cholesterol: 200-239 mg/dLHigh Cholesterol: greater than 239 mg/dL LDL Cholesterol Calculated 53 <100 mg/dL [facility] Comment:Desirable LDL: less than 100 mg/dLNear Optimal/Above Optimal LDL: 110- 129 mg/dLBorderline High LDL: 130-159 mg/dLHigh LDL: 160-189 mg/dLVery High LDL: greater than or equal to 190 mg/dL HDL Cholesterol 38(L) >40 mg/dL [facility] Comment:Desirable HDL: great er than 40 mg/dL Note: This HDL assay may give artificially low results in patients with liver disease. Blood Venous blood specimen / Unknown 08/04/2024 9:48 AM EDT 08/04/2024 9:48 AM EDT us Marbella Sofia DO LAB BLOOD ORDERABLES Final R esult [facility] [address] [place] [phone] * Albumin, Random Urine W/Creatinine (08/04/2024 9:45 AM EDT) Creatinine, Urine 137.82 mg/dL [facility] Microalbumin Urine 6.0 mg/L [facility] Microalbum Creatinine Ratio Ur 4.3 <30 ug/mg cr [facility] Comment:Albumin/Creatinine R atio Reference Ranges: Normal: < 30 ug/mg creatinine Microalbuminuria: 30 - 300 ug/mg creatinineClinical Albuminuria: > 300 ug/mg creatinine Urine (Urine, Random) 08/04/2024 9:45 AM EDT 08/04/2024 10:03 AM EDT Marbella Sofia DO LAB URINE ORDERABLES Final R esult [facility] [address] [place] [phone] * Hm Colonoscopy (08/07/2019 3:09 PM EDT) us Historical Provider MD HEALTH MAINTENANCE Final Result from Last 3 Months or Most Recently Relevant to Health Maintenance Insurance [facility] Care Teams Injection Mold Tooling Technician Relationship Specialty Start Date End Date Marbella Sofia DO [address] [place] [address] PCP - General Family Medicine 05/01/14
--- OUTSIDE RECORDS SUMMARY | 2024-11-12 11:36 | XMS_ITS | Encounter Summary ---
Author Organization [employer] Address [address] [place] [address] Care Team Providers Care Clinical Research Tech Name Role Phone Marbella oSfia DO Primary Care Provider [phone] Reason for Visit * Reason Onset Date Comments Referral 07/24/2024 Encounter Details Date Type Department Care Team (Late st Contact Info) Description 07/24/2024 Telephone [facility] [address] [place], [place] [phone] Marbella Sofia DO [address] [place], [place] [phone] Referral Social History Tobacco Use Types Packs/Day Years [...] the past 12 months, has t he [employer], [employer], oil or water [employer] threatened to shut off services in your home? No 08/06/2023 Depression Answer Date Recorded Patient Health Questionnaire-2 Score 2 02/13/2023 Sex and Gender Information Value Date Recorded Sex Assigned at Male 08/14/2022 10:20 AM EDT Legal Sex Male 10:20 AM EDT Gender Identity Male 08/14/2022 10:20 AM EDT Sexual Orientation Straight 08/14/2022 10 :20 AM EDT documented as of this encounter Miscellaneous Notes * Telephone Encounter - Elielsaul Rafael - 07/24/2024 9:32 AM EDT Tc from [facility] with [facility] group would like to inform PCP that they received referral however they are booking for after December 2024 and would like for patient to referred else where. Please contact at [phone] documented in this encounter Plan of Treatment Upcoming Encounters Date Type Department Care Team (Late st Contact Info) Description 12/15/2024 9:00 AM EST Office Visit [facility] [address] [place] [address] Casimiro, Gina, OD [address] [place] [address] documented as of this encounter Visit Diagnoses Not on filedocumented in this encounter Additional Health Concerns Assessment Noted Time PHQ-9 Depression Total Score: 16 11/28/ 023 10:33 AM EST documented as of this encounter Care Teams Clinical Research Tech Relationship Specialty Start Date End Date Marbella Sofia DO [address] [place] [address] PCP - General Family Medicine 05/01/14 documented as of this encounter
--- OUTSIDE RECORDS SUMMARY | 2024-11-12 11:36 | XMS_ITS | Encounter Summary ---
Author Organization [employer] Address [address] [place] [address] Care Team Providers Care Semi Automatic Sewing Machine Operator Name Role Phone Adilene Sofianifer Primary Care Provider + [phone] Reason for Visit * Reason Comments Med Refill Encounter Details Date Type Department Care Team (Late st Contact Info) Description 11/01/2024 Refill [facility] [address] [place], [place] [phone] Name, MD Joaquín [address] [place], [place] [phone] Chronic gastroesophageal reflux disease Social History Tobacco [...] Description 12/15/2024 9:00 AM EST Office Visit [facility] [address] [place] [address] Gina Kirkpatrick, OD [address] [place] [address] documented as of this encounter Visit Diagnoses Diagnosis Chronic gastroesophageal reflux disease documented in this encounter Additional Health Concerns Assessment Noted Time PHQ-9 Depression Total Score: 16 11/28/2 023 10:33 AM EST documented as of this encounter Care Teams Semi Automatic Sewing Machine Operator Relationship Specialty Start Date End Date Marbella Sofia DO [address] [place] [address] PCP - General Family Medicine 05/01/14 documented as of this encounter
== END 2024-11-12 11:34 | disposition home or self-care (01) ==
PROVIDERS: PCP Family Medicine; Visit Provider Urology
DX: R39.12 Poor urinary stream (principal); R35.1 Nocturia; Z13.9 Encounter for screening, unspecified
CPT/HCPCS: 52000; 99213

== ENCOUNTER → 2024-11-12 09:49 | Outpatient (BNVA) | payer OTHER, SELFPAY | PROVIDERS: PCP Family Medicine; Visit Provider Urology | DX: R35.1 Nocturia (principal); R39.12 Poor urinary stream | CPT/HCPCS: 52000; 81003; 99212 ==

== ENCOUNTER 2024-12-18 09:49 | Day surgery (SDC) | payer OTHER, SELFPAY ==
[2024-12-18 10:48] VITALS: BP 127/85; PULSE 76; RESP 20; TEMP 36.9; O2SAT 98; BMI 27.5
--- NOTE | 2024-12-18 11:47 | MHC.SHP ---
Pre-Procedural Eval Section A - 24 Hr Update-Section A only Date of Service: 12/18/24 The patient is an INPATIENT: No Changes since office visit: No Cold of Flu in the past 2 weeks, No New Medical Problems, No Changes in Medication and No Patient answered all questions The patient has been examined within 24 hours of the surgical procedure. The History & Physical has been completed within 30 days and I have reviewed it.: Yes Section B - Complete if H&P > 30 days Chief Complaint: Trigger finger, left middle finger Allergies: Allergies Allergy/AdvReac Type Severity Reaction Status Date / Time SEAFOOD Allergy Intermediate VOMITING Uncoded 11/12/24 10:00 AND DIARHEA Plan Diagnosis/Plan: Unchanged I have reviewed the history and physical and performed a pertinent physical examination on my patient. No changes have occurred unless specified. Time Spent With Patient Time: Total time managing care of this patient today ____ minutes.
--- NOTE | 2024-12-18 11:47 | W.PM.OPN ---
Operative Note Operative Note Date of Service: 12/18/24 Narrative: Operative Note Preop diagnosis: 1. Left middle finger Trigger finger Postop diagnosis: Same Procedure: 1. Left middle finger A1 abbi release Surgeon: Winsome Cruz MD Associate Agent Insurance Sales: Lanre MILLER Anesthesia: local block using 1% lidocaine with epinephrine Findings: No locking or catching after A1 abbi release EBL: Less than 5 mL Tourniquet time: None Specimens: None Complications: None Disposition: Brought to recovery room in stable condition Plan: Follow-up for 10-14 days for wound check and suture removal Indications: The patient is 74 years old, with a left middle finger trigger finger that has been unresponsive to nonoperative management. The risks and benefits of operative treatment including but not limited to risk of damage to blood vessels, nerves, tendons, infection, persistent pain, persistent symptoms, recurrence or possible need for additional surgery were discussed with the patient and the patient wishes to proceed with surgery. Procedure: Once consent was obtained a local block was performed in the preop area using a combination of 1% lidocaine with epinephrine. The patient was then brought back to the operating suite and placed on the operative table in supine position. The left upper extremity was prepped and draped in a standard surgical fashion. Once assured that we had a good block, a 1.5 cm oblique incision was made centered over the A1 abbi of the left middle fingers . The incision was made through the skin to the subcutaneous tissues using a #15 blade. Careful dissection was made down to the level of the A1 abbi using tenotomy scissors, with care being taken to protect the nearby neurovascular structures. A longitudinal incision was made in the A1 abbi 1st using a #15 blade, then using tenotomy scissors under direct visualization. The A1 abbi was noted to be thickened. Following our A1 abbi release, we no longer saw any locking or catching of the digit with flexion and extension. Once satisfied with our A1 abbi release the wound was copiously irrigated with normal saline and hemostasis was obtained with a brief period of local pressure. The skin edges were reapproximated with some 5.0 nylon suture material and a sterile dressing was applied. The patient appears to have tolerated the procedure well and with no complications. All digits were well vascularized at the conclusion of the case.
[2024-12-18 13:14] VITALS: BP 150/73; PULSE 64; RESP 18; O2SAT 96
== END 2024-12-18 13:17 | disposition home or self-care (01) ==
PROVIDERS: PCP Family Medicine; Visit Provider Orthopaedic Surgery
PROC: (CPT 26055; principal; 2024-12-18 12:20)
DX: M65.332 Trigger finger, left middle finger (principal); M79.645 Pain in left finger(s)
CPT/HCPCS: 26055; J0171; J2003; J2004

== ENCOUNTER → 2024-12-18 09:49 | Outpatient (BNV) | payer OTHER, SELFPAY | PROVIDERS: PCP Family Medicine; Visit Provider Orthopaedic Surgery | DX: M65.332 Trigger finger, left middle finger (principal) | CPT/HCPCS: 26055 ==

== ENCOUNTER 2024-12-31 12:48 | Outpatient (AMB) | payer OTHER, SELFPAY ==
--- NOTE | 2024-12-31 12:51 | MHC.OFFVIS ---
Vital Signs 12/31/24 13:05 Height 5 ft 5 in Weight 165 lb BMI 27.5 Handedness Right Intake Visit Reasons: PO LT MF trigger 12/18/24 AR Intake Note: Juvencio is a 73 year old right hand dominant male who presents today post operatively s/p Left middle finger A1 abbi release DOS: 12/18/24 w/ Dr Winsome Cruz. Patient reports pain when he attempts a full fist. Sutures removed and steri strips applied at today's visit. Allergies SEAFOOD Allergy (Intermediate, Uncoded 12/31/24 13:05) VOMITING AND DIARHEA HPI HPI PO LT MF trigger 12/18/24 AR: Details: Juvencio is a 73 year old right hand dominant male who presents today post operatively s/p Left middle finger A1 abbi release DOS: 12/18/24 w/ Dr Winsome Cruz. Patient reports pain when he attempts a full fist. Sutures removed and steri strips applied at today's visit. [facility] Surgical History History of cardiac cath H/O colonoscopy Family History Sister Cancer Social History Household Members: Spouse and Children Alcohol intake: current Alcohol intake frequency: does not drink Patient Tobacco Use Status: Never used Tobacco Current occupational status: disabled Current occupation: right hand dominant Review of Systems Const All systems reviewed & are unremarkable except as noted in HPI and below Physical Exam Vital Signs: BMI result Body Mass Index 27.5 Extrem Other: Patient is alert, oriented, and in no acute distress. Neuro: Normal sensation of the tips of all digits of the left hand at this time Vascular: Cap refill brisk Pain: Patient reports no tenderness to palpation at the level of the A1 abbi of the left middle finger about the incision ROM: There is no further visible palpable locking and catching of the patient's left middle finger Patient is able to flex and extend all other digits of the left hand fully and without difficulty Skin: Approximated and well healing incision site noted over the A1 abbi of the left middle finger General: No ecchymosis, erythema, or evidence of infection. Psych: Appears grossly normal Affect normal Attitude cooperative Assessment & Plan Assessment & Plan (1) Trigger finger, left middle finger: Code(s): M65.332 - Trigger finger, left middle finger Category: Medical Plan 1. Status post left middle finger trigger release DOS 12/18/2024 Patient appears to be postoperatively Patient is educated about the typical recovery course At this time, patient was informed he will require no further acute follow-up with us, as he has recovered very well Patient was amenable to this plan Patient will follow-up as needed with any acute concerns Coding Level of Care Code Global (77940) Diagnoses Trigger finger, left middle finger M65.332
[2024-12-31 13:05] VITALS: BMI 27.5
--- OUTSIDE RECORDS SUMMARY | 2024-12-31 15:08 | XMS_ITS ---
Author Organization [facility] Address [address] [facility] [address] [place] [phone] Care Team Providers Care Pantograph Engraver Name Role Phone Bismark Marinelli, Marbella Primary Care Provider Mary Leighton Whipple Jr REASON FOR VISIT Patient presents today for constipation Encounters Encounter Location Date Provider Diagnosis [facility] [address] [facility] [address] [place] [phone] 11/06/2024 Leighton Plasencia Jr Plan Of Treatment Next Appt Details Provider Name:Leighton rothman Jr, 02/11/2025 10:00:00 AM, [address] [facility], [address], [place], [address], Progress Notes * RODNEY UREÑADOB:1950 ([age] yo M)Acc No.[id number]:11/06/2024 Progress Notes Patient:?RODNEY UREÑA Provider:?Leighton Plasencia MD :1950???Age:73 Y???Sex:Male Ehsan e:11/06/2024 Address:[address] [place] [address] [address] , [place], [id number] Pcp:Marbella Sofia M.D. Subjective: * Chief Complaints: * ???1. Patient presents today for constipation. * Medical History:? Objective: * Vitals:? Assessment: Plan: * Treatment: * * The named appointment provid er may or may not be the originator of this progress note, and it is not deemed complete until electronically signed by the appointment provider. Sign off status: Pending * Provider:?Leighton Plasencia MD Date:?0 11/06/2024 Generated for Laith haas/Alberto/Lanreitting on:?12/31/2024 03:08 PM EDT
--- OUTSIDE RECORDS SUMMARY | 2024-12-31 15:08 | XMS_ITS | Patient Health Record ---
Author Organization [facility] Address [address] [place] [address] Care Team Providers Care Front End Wheel Loader Operator Name Role Phone Marbella Sofia M.D. Primary Care Provider Mary vailable Leighton Plasencia Jr [phone] Reason For Referral No Information Encounters Encounter Location Date Provider Diagnosis [facility] [address] [place] [address] 11/06/2024 Leighton Plasencia Jr Plan Of Treatment Next Appt Details Provider Name:Leighton rothman Jr, 02/11/2025 10:00:00 AM, [address], [address], [place], [address], Insurance Providers Payer Name Payer Address Payer Phone Subscriber Number Group Number Insured Name Patient Relationship to Insured Coverage Start Date Coverage End Date [facility] [address] [place] [address] [id number] RODNEY UREÑA Self - patient is the insured MEDICAID OF [facility] [address] [place] [phone] [id number] RODNEY UREÑA Self - patient is the insured
--- OUTSIDE RECORDS SUMMARY | 2024-12-31 15:08 | XMS_ITS | Encounter Summary ---
Author Organization [employer] [facility] Address [address] [facility] 7t [place] [address] Care Team Providers Care Manager Commission Name Role Phone Marbella Sofia DO Primary Care Provider [phone] Encounter Details Date Type Department Care Team (Late st Contact Info) Description 11/27/2022 Abstract [facility] MEDICINE [address] [place] [phone] Marbella Sofia DO [address] [place] [phone] Social History Tobacco Use Types Packs/Day Years [...] Care Team (Late st Contact Info) Description 02/13/2025 11:15 AM EDT Office Visit [facility] MEDICINE [address] [place] [phone] Marbella Sofia DO [address] [place] [address] 04/01/2025 2:30 PM EDT Office Visit [facility] OPTOMETRY [address] [place] [phone] Gina Kirkpatrick, LG [address] [place] [address] documented as of this encounter Visit Diagnoses Not on filedocumented in this encounter Care Teams Manager Commission Relationship Specialty Start Date End Date Marbella Sofia DO [address] [place] [address] PCP - General Family Medicine 05/01/14 documented as of this encounter
--- OUTSIDE RECORDS SUMMARY | 2024-12-31 15:08 | XMS_ITS | Encounter Summary ---
Author Organization [facility] Address [address] [facility] 7t [place] [address] Care Team Providers Care Character Artist Name Role Phone Marbella Sofia DO Primary Care Provider [phone] Encounter Details Date Type Department Care Team (Latest Contact Info) Description 01/26/2022 Abstract [facility] Dental, Provider, DDS Social History [...] Description 02/13/2025 11:15 AM EDT Office Visit [facility] MEDICINE [address] [place] [address] Marbella Sofia DO [address] [place] [address] 04/01/2025 2:30 PM EDT Office Visit [facility] OPTOMETRY [address] [place] [address] Casimiro, Gina, OD [address] [place] [address] documented as of this encounter Visit Diagnoses Not on filedocumented in this encounter Care Teams Character Artist Relationship Specialty Start Date End Date Marbella Sofia DO [address] [place] [address] PCP - General Family Medicine 05/01/14 documented as of this encounter
--- OUTSIDE RECORDS SUMMARY | 2024-12-31 15:08 | XMS_ITS | Clinical Summary ---
Author Organization [employer] Address [address] [facility] 7t [place] [address] Care Team Providers Care Replanting Machine Operator Name Role Phone Radha Sofiafer Primary Care [...] TABLET BY MOUTH AT BEDTIME NEEDED Active Blood Glucose Monitoring Suppl ([employer] Verio) w/Device kit 1 each 2 times daily. TEST BLOOD SUGAR TWICE DAILY 1 kit Active Fiber-Lax 625 MG tabletIndications:O ther constipation TAKE 2 TABLETS BY MOUTH ONCE DAILY IN THE MORNING 180 tablet 1 Active Lancets ([employer]uch Delica Plus [id number]) misc 1 each 2 times daily. TEST BLOOD SUGAR TWICE DAILY 100 each 11 Active famotidine (Pepcid) 40 MG tablet TAKE 1 TABLET BY MOUTH AT BEDTIME 30 tablet 11 024 Active lisinopril 2.5 MG tablet TAKE 1/2 [...] MOUTH EVERY EVENING WITH MEALS 90 tablet 024 Active D3 Super Strength 50 MCG (2000 UT) capsuleIndications: Vitamin D deficiency TAKE 1 CAPSULE BY MOUTH EVERY MORNING 90 capsule 3 024 Active FeroSul 325 (65 Fe) MG tabletIndications:A nemia, unspecified type TAKE 1 TABLET BY MOUTH EVERY MORNING 90 tablet 3 024 Active metoprolol succinate XL (Toprol-XL) 50 MG 24 hr tablet Take 50 mg by mouth in the morning. 024 Active terazosin (Hytrin) 5 MG capsule Take 5 mg by mouth at bedtime. 024 Active glucose blood (OneTouch Verio) test stripIndications:Ty pe 2 diabetes mellitus without complication, without long-term current use of insulin ([facility]) USE TO TEST BLOOD SUGAR TWICE DAILY 50 strip 11 024 Active aspirin (Aspirin Low Dose) 81 MG EC tabletIndications:T ype 2 diabetes mellitus with other specified complication, unspecified whether snf insulin use ([facility]) TAKE 1 TABLET BY MOUTH AT BEDTIME [...] THE EVENING 60 tablet 11 025 Active Antacid Extra Strength 750 MG chewable tabletIndications:C hronic gastroesophageal reflux disease CHEW 1 TABLET BY MOUTH TWICE DAILY IN THE MORNING AND IN THE EVENING NEEDED FOR HEARTBURN 30 tablet 11 025 Active Alcohol Swabs (Alcohol Prep) 70 % pads USE DAILY DIRECTED 100 each 11 025 Active Alcohol Swabs (Alcohol Prep) 70 % pads USE DAILY DIRECTED 100 each 11 023 2024 Discontinued(R eorder (will not trigger notification to Pharmacy)) Calcium Antacid Extra Strength 750 MG chewable tabletIndications:C hronic gastroesophageal reflux disease CHEW 1 TABLET BY MOUTH TWICE DAILY IN THE MORNING AND IN THE EVENING NEEDED FOR HEARTBURN 30 tablet 11 024 2024 Discontinued Active Problems Problem Noted [...] Encounters Date Type Department Care Team Description 12/11/2024 Telephone [facility] MEDICINE [address] [place], [place] [phone] Marbella Sofia DO Recall Appt. 12/11/2024 Travel 12/10/2024 Refill [facility] MEDICINE [address] [place], [place] [phone] Marbella Sofia DO Chronic gastroesophageal reflux disease 12/10/2024 Refill [facility] MEDICINE [address] [place], [place] [phone] Rayne Shin MD 11/01/2024 Refill [facility] MEDICINE [address] [place], [place] [phone] Jurcsak, Marbella, DO Chronic gastroesophageal reflux disease 11/01/2024 Refill [facility] MEDICINE [address] [place] [address] Name, MD Joaquín Chronic gastroesophageal reflux disease 10/23/2024 Refill [facility] MEDICINE [address] [place] [address] GoshenTaylor menchaca FNP Chronic constipation 10/08/2024 Refill [facility] [address] [place], [place] [phone] aSmaria Oneill, MABLE Type 2 diabetes mellitus with other specified complication, unspecified whether intermediate project manager insulin use ([facility]) from Last 3 Months Immunizations Name Administration [...] Description 02/13/2025 11:15 AM EDT Office Visit [facility] MEDICINE [address] [place], [place] [phone] Marbella Sofia DO [address] [place], [place] [phone] 04/01/2025 2:30 PM EDT Office Visit [facility] OPTOMETRY [address] [place], [place] [phone] CasimiroGina amaro, OD [address] [place], [place] [phone] Health Maintenance Due Date Last Done Comments [...] Cancer Screening 08/07/2024 Eye Exam 12/14/2024 12/14/2022, 03/0 11/2022, 12/14/2022, Additional history exists Diabetes: Hemoglobin [...] Procedure Name Priority Date/Time Associated Diagnosis Comments HEPATITIS C AB W/REFL TO HCV RNA, QN, PCR Routine 08/04/2024 9:48 AM EDT Type 2 diabetes mellitus without complication, without long-term current use of insulin (CMS/HCC) Essential hypertension Other hyperlipidemia Generalized anxiety disorder Coronary artery disease involving [place] coronary artery of [place] heart, unspecified whether angina present Hypothyroidism, unspecified [...] Generalized anxiety disorder Coronary artery disease involving [place] coronary artery of [place] heart, unspecified whether angina present Hypothyroidism, unspecified [...] Generalized anxiety disorder Coronary artery disease involving [place] coronary artery of [place] heart, unspecified whether angina present Hypothyroidism, unspecified [...] complication, without long-term current use of insulin ([facility]/HCC) Essential hypertension Other hyperlipidemia Generalized anxiety disorder Coronary artery disease involving [place] coronary artery of [place] heart, unspecified whether angina present Hypothyroidism, unspecified [...] Recently Relevant to Health Maintenance Results * Hepatitis C Antibody with Reflex to HCV, RNA, Quantitative, Real-Time PCR (08/04/2024 9:48 AM EDT) Hepatitis C Antibody Nonreactive Nonreactive [facility] Comment:Antibodies to HCV no t detected; does not exclude early acuteHCV infection. Blood Venous blood specimen / Unknown 08/04/2024 9:48 AM EDT 08/04/2024 9:48 AM EDT us Marbella Sofia DO LAB BLOOD ORDERABLES Final R esult Performing Organization Address [facility] Co de Phone Number [facility] [address] [place] [phone] * (ABNORMAL) Hemoglobin A1c (08/04/2024 9:48 AM EDT) Hemoglobin A1c 6.5(H) <6.0 % [facility] Comment:Hemoglobin A1C Refer ence Range Adults: 4.8 - 6.0 % Non diabetic: < 6.0 % Goal: < 7.0 %Additional Action Suggested: > 8.0 %Note: Hemoglobin A1c results are invalid for patients with abnormal amounts of HbF. Blood transfusions may impact the HbA1c concentration in the patient sample. Estimated Average Glucose 140 mg/dL [facility] Comment:eAG = Estimated ave rage glucose which is %A1C expressed asaverage glucose, using the formula of the [id number] Glucose study (ADAG), Diabetes Care, Vol.31,#8,2007 Blood Venous blood specimen / Unknown 08/04/2024 9:48 AM EDT 08/04/2024 9:48 AM EDT Marbella Sofia DO LAB BLOOD ORDERABLES Final R esult Performing Organization Address [facility] Co de Phone Number [facility] [address] [place] [phone] * (ABNORMAL) Lipid Panel, Standard (08/04/2024 9:48 AM EDT) Triglycerides 169(H) <150 mg/dL [facility] Comment:Desirable Triglyceri de: less than 150 mg/dLBorderline High Triglyceride 150-199 mg/dLHigh Triglyceride: 200-499 mg/dLVery High Triglyceride: greater than or equal to 5OO mg/dL Cholesterol 124 <200 mg/dL [facility] Comment:Desirable Cholestero l: less than 200 mg/dLBorderline High Cholesterol: 200-239 mg/dLHigh Cholesterol: greater than 239 mg/dL LDL Cholesterol Calculated 53 <100 mg/dL [facility] Comment:Desirable LDL: less than 100 mg/dLNear Optimal/Above Optimal LDL: 110- 129 mg/dLBorderline High LDL: 130-159 mg/dLHigh LDL: 160-189 mg/dLVery High LDL: greater than or equal to 190 mg/dL HDL Cholesterol 38(L) >40 mg/dL [facility] Comment:Desirable HDL: great er than 40 mg/dL Note: This HDL assay may give artificially low results in patients with liver disease. Blood Venous blood specimen / Unknown 08/04/2024 9:48 AM EDT 08/04/2024 9:48 AM EDT Marbella Sofia DO LAB BLOOD ORDERABLES Final R esult Performing Organization Address [facility] Co de Phone Number [facility] [address] [place] [phone] * Albumin, Random Urine W/Creatinine (08/04/2024 9:45 AM EDT) Creatinine, Urine 137.82 mg/dL [facility] Microalbumin Urine 6.0 mg/L [facility] Microalbum Creatinine Ratio Ur 4.3 <30 ug/mg cr [facility] Comment:Albumin/Creatinine R atio Reference Ranges: Normal: < 30 ug/mg creatinine Microalbuminuria: 30 - 300 ug/mg creatinineClinical Albuminuria: > 300 ug/mg creatinine Urine (Urine, Random) 08/04/2024 9:45 AM EDT 08/04/2024 10:03 AM EDT Marbella Sofia DO LAB URINE ORDERABLES Final R esult Performing Organization Address [facility]/ZIP Co de Phone Number [facility] [address] [place] [phone] * Hm Colonoscopy (08/07/2019 3:09 PM EDT) Historical Provider HEALTH MAINTENANCE Final Result from Last 3 Months or Most Recently Relevant to Health Maintenance [place] [address] [place] [address] - [employer] Care Teams Replanting Machine Operator Relationship Specialty Start Date End Date Marbella Sofia DO [address] [place] [phone] PCP - General Family Medicine 05/01/14
--- OUTSIDE RECORDS SUMMARY | 2024-12-31 15:09 | XMS_ITS | Encounter Summary ---
Author Organization [employer] Address [address] [place] [address] Care Team Providers Care Analytics Lead Name Role Phone Marbella Sofia DO Primary Care Provider [phone] Encounter Details Date Type Department Care Team (Late st Contact Info) Description 01/23/2024 Orders Only [facility] MEDICINE [address] [place] [address] Provider, MD Eron Social History Tobacco Use [...] Description 02/13/2025 11:15 AM EDT Office Visit [facility] MEDICINE [address] [place] [address] Marbella Sofia DO [address] [place] [address] 04/01/2025 2:30 PM EDT Office Visit [facility] OPTOMETRY [address] [place], [place] [phone] CasimiroGina amaro, OD [address] [place] [address] documented as of this encounter Procedures Procedure Name Priority Date/Time Associated Diagnosis Comments HM COLONOSCOPY Routine 08/07/2019 3:09 PM EDT documented in this encounter Results * Hm Colonoscopy (08/07/2019 3:09 PM EDT) us Historical Provider HEALTH MAINTENANCE Final Result documented in this encounter Visit Diagnoses Not on filedocumented in this encounter Additional Health Concerns Assessment Noted Time PHQ-9 Depression Total Score: 16 02/2 023 10:33 AM EST documented as of this encounter Care Teams Analytics Lead Relationship Specialty Start Date End Date Marbella Sofia DO [address] [place] [address] PCP - General Family Medicine 05/01/14 documented as of this encounter
--- OUTSIDE RECORDS SUMMARY | 2024-12-31 15:09 | XMS_ITS | Encounter Summary ---
Author Organization [employer] Address [address] [place] [address] Care Team Providers Care Metal Riveter Name Role Phone RicMarbella smith Primary Care Provider [phone] Encounter Details Date Type Department Care Team (Latest Contact Info) Description 12/11/2024 Travel Social History Tobacco Use Types Packs/Day Years [...] Description 02/13/2025 11:15 AM EDT Office Visit [facility] MEDICINE [address] [place] [address] Marbella Sofia DO [address] [place], [place] [phone] 04/01/2025 2:30 PM EDT Office Visit [facility] OPTOMETRY [address] [place] [address] CasimiroGina amaro, OD [address] [place] [address] documented as of this encounter Visit Diagnoses Not on filedocumented in this encounter Additional Health Concerns Assessment Noted Time PHQ-9 Depression Total Score: 16 11/28/ 023 10:33 AM EST documented as of this encounter Care Teams Metal Riveter Relationship Specialty Start Date End Date Marbella Sofia DO [address] [place], [place] [phone] PCP - General Family Medicine 05/01/14 documented as of this encounter
--- OUTSIDE RECORDS SUMMARY | 2024-12-31 15:09 | XMS_ITS | Encounter Summary ---
Author Organization [employer] Address [address] 7t [place] [address] Care Team Providers Care Tumbler Plater Name Role Phone Marbella Sofia DO Primary Care Provider + [phone] Reason for Visit * Reason Comments Med Refill Encounter Details Date Type Department Care Team (Late st Contact Info) Description 12/10/2024 Refill [facility] MED[facility]INE [address] [place], [place] [phone] Marbella Sofia DO [address] [place], [place] [phone] Chronic gastroesophageal reflux disease Social History Tobacco [...] Description 02/13/2025 11:15 AM EDT Office Visit [facility] MED[facility]INE [address] [place] [address] Marbella Sofia DO [address] [place] [address] 04/01/2025 2:30 PM EDT Office Visit [facility] OPTOM[facility]RY [address] [place] [address] Casimiro, Gina, OD 230 [place] [address] documented as of this encounter Visit Diagnoses Diagnosis Chronic gastroesophageal reflux disease documented in this encounter Additional Health Concerns Assessment Noted Time PHQ-9 Depression Total Score: 16 11/28/2 023 10:33 AM EST documented as of this encounter Care Teams Tumbler Plater Relationship Specialty Start Date End Date Marbella Sofia DO [address] [place] [address] PCP - General Family Medicine 05/01/14 documented as of this encounter
--- OUTSIDE RECORDS SUMMARY | 2024-12-31 15:09 | XMS_ITS ---
Author Organization [facility] Address [address] [place] [address] Care Team Providers Care Silk Washing Machine Operator Name Role Phone Marbella Sofia M.D. Primary Care Provider Leighton Pelayo Jr REASON FOR VISIT R/S OV Encounters Encounter Location Date Provider Diagnosis [facility] [address] [place] [address] 11/06/2024 Leighton Plasencia Jr Plan Of Treatment Next Appt Details Provider Name:Leighton rothman Jr, 02/11/2025 10:00:00 AM, [address], [address], [place], [address], Progress Notes * HOLDEN UREÑA:1950 ([age] yo M)Acc No.[id number]:11/06/2024 Patient:?RODNEY UREÑA :1950???Age:73 Y???Sex:Male Address:[address] [place] [address] [address] , [place], [address] * true * Date:? Generated for Denilsoni samina/Alberto/eTransmitting on:?12/31/2024 03:08 PM EDT
--- OUTSIDE RECORDS SUMMARY | 2024-12-31 15:09 | XMS_ITS | Encounter Summary ---
Author Organization [employer] Address [address] 7[address] [place] [address] Care Team Providers Care Wood Polisher Name Role Phone Radha Sofiafer Primary Care Provider + [phone] Reason for Visit * Reason Comments Med Refill Encounter Details Date Type Department Care Team (Late st Contact Info) Description 12/10/2024 Refill [facility] MEDICINE [address] [place], [place] [phone] Rayne Shin MD [address] [place], [place] [phone] Social History Tobacco Use Types Packs/Day Years [...] Description 02/13/2025 11:15 AM EDT Office Visit [facility] MED[facility]INE [address] [place] [address] Marbella Sofia DO [address] [place] [address] 04/01/2025 2:30 PM EDT Office Visit [facility] OPTOMETRY [address] [place], [place] [phone] Casimiro, Gina, OD 230 [place] [address] documented as of this encounter Visit Diagnoses Not on filedocumented in this encounter Additional Health Concerns Assessment Noted Time PHQ-9 Depression Total Score: 16 11/28/ 023 10:33 AM EST documented as of this encounter Care Teams Wood Polisher Relationship Specialty Start Date End Date Marbella Sofia DO [address] [place] [address] PCP - General Family Medicine 05/01/14 documented as of this encounter
--- OUTSIDE RECORDS SUMMARY | 2024-12-31 15:09 | XMS_ITS | Encounter Summary ---
Author Organization [employer] Address [address]t [place] [address] Care Team Providers Care Extractor Plant Operator Name Role Phone Marbella Sofia DO Primary Care Provider + [phone] Reason for Visit * Reason Onset Date Comments Recall Appt. 12/11/2024 Encounter Details Date Type Department Care Team (Late st Contact Info) Description 12/11/2024 Telephone [facility] MEDICINE 230 [place], [place] [phone] Marbella Sofia DO [address] [place], [place] [phone] Recall Appt. Social History Tobacco Use Types Packs/Day Years [...] encounter Miscellaneous Notes * Telephone Encounter - Sheila Parada [place] - 12/11/2024 1:54 PM EST .Telephone call to patient to schedule the following recall: Visit type: Office visit extended Appointment notes: DM Patient agree to appointment on 02/13/2025 at 11:15 AM with Darrin. documented in this encounter Plan of Treatment Upcoming Encounters Date Type Department Care Team (Late st Contact Info) Description 02/13/2025 11:15 AM EDT Office Visit [facility] MEDICINE [address] [place] [address] Marbella Sofia DO [address] [place] [address] 04/01/2025 2:30 PM EDT Office Visit [facility] OPTOMETRY [address] [place] [address] Casimiro, Gina, OD [address] [place] [address] documented as of this encounter Visit Diagnoses Not on filedocumented in this encounter Additional Health Concerns Assessment Noted Time PHQ-9 Depression Total Score: 16 11/28/2 023 10:33 AM EST documented as of this encounter Care Teams Extractor Plant Operator Relationship Specialty Start Date End Date Marbella Sofia DO [address] [place] [address] PCP - General Family Medicine 05/01/14 documented as of this encounter
== END 2024-12-31 13:15 | disposition home or self-care (01) ==
LOC: HO.HOS 12:48
PROVIDERS: PCP Family Medicine
DX: M65.332 Trigger finger, left middle finger (principal)
CPT/HCPCS: 99024

== ENCOUNTER → 2024-12-31 12:48 | Outpatient (BNVA) | payer OTHER, SELFPAY | PROVIDERS: PCP Family Medicine | DX: Z47.89 Encounter for other orthopedic aftercare (principal); M65.332 Trigger finger, left middle finger; Z98.890 Other specified postprocedural states | CPT/HCPCS: 99212 ==

== ENCOUNTER 2025-02-11 10:36 | Outpatient (AMB) | payer OTHER, SELFPAY ==
--- NOTE | 2025-02-11 10:39 | MHC.OFFVIS ---
Intake Visit Reasons: 3m/PVR/UA Intake Note: Patient is present for 3M/PVR/UA Urology Medication:TERAZOSIN,TADALAFIL Antibiotic Allergy:NONE Blood Thinner:ASPIRIN TODAY'S PVR 0ML'S Embroidery Assistant Required: No Allergies SEAFOOD Allergy (Intermediate, Uncoded 02/11/25 10:40) VOMITING AND DIARHEA HPI Comments Details: Juvencio is a pleasant Maltese-speaking male. He is a patient of . He is seen for the following urologic conditions - lower urinary tract symptoms Maltese translation provided in office by qualified nuclear medicine medical director Three-month follow-up enlarged prostate on terazosin and tadalafil Lower urinary tract symptoms Background diabetes Bladder ultrasound 04/07 - trabeculated wall, 50 g prostate Terazosin 5 mg PSA - 08/07 0.5 PFSH Surgical History History of cardiac cath H/O colonoscopy Family History Sister Cancer Social History Household Members: Spouse and Children Alcohol intake: current Alcohol intake frequency: does not drink Patient Tobacco Use Status: Never used Tobacco Current occupational status: disabled Current occupation: right hand dominant Office Procedures Post Void Residual Post Residual Void Post Void Residual (PVR): 0 22709-Nntt Void Residual by ultrasound Assessment & Plan Assessment & Plan Orders: Orders AMB Urinalysis Automated Today Z13.9 - Encounter for screening, unspecified Coding CPT Codes Post Residual Void - PVR CPT Code: 10575-Ylld Void Residual by ultrasound ([id number])
--- OUTSIDE RECORDS SUMMARY | 2025-02-11 11:58 | XMS_ITS | Clinical Summary ---
Author Organization [employer] Address [address] 7t [place] [address] Care Team Providers Care Desktop Support Manager Name Role Phone Marbella Sofia DO Primary Care Provider [phone] Allergies Active Allergy Reactions Criticality Noted Date [...] BEDTIME NEEDED Active Blood Glucose Monitoring Suppl ([employer] Verio) w/Device kit 1 each 2 times daily. TEST BLOOD SUGAR TWICE DAILY 1 kit Active Fiber-Lax 625 MG tabletIndications:O ther constipation TAKE 2 TABLETS BY MOUTH ONCE DAILY IN THE MORNING 180 tablet 1 Active lisinopril 2.5 MG tablet TAKE 1/2 TABLET BY MOUTH EVERY MORNING 45 tablet 3 Active levothyroxine (Synthroid, Levoxyl) 88 MCG tablet TAKE 1 TABLET BY MOUTH EVERY MORNING 90 tablet 3 Active atorvastatin (Lipitor) 80 MG tablet TAKE 1 TABLET BY MOUTH AT BEDTIME 90 tablet Active metFORMIN XR (Glucophage-XR) 500 MG 24 hr tablet TAKE 1 TABLET BY MOUTH EVERY EVENING WITH MEALS 90 tablet Active D3 Super Strength 50 MCG (2000 UT) capsuleIndications: Vitamin D deficiency TAKE 1 CAPSULE BY MOUTH EVERY MORNING 90 capsule Active FeroSul 325 (65 Fe) MG tabletIndications:A nemia, unspecified type TAKE 1 TABLET BY MOUTH EVERY MORNING 90 tablet 3 Active metoprolol succinate XL (Toprol-XL) 50 MG 24 hr tablet Take 50 mg by mouth in the morning. Active terazosin (Hytrin) 5 MG capsule Take 5 mg by mouth at bedtime. Active glucose blood (OneTouch Verio) test stripIndications:Ty pe 2 diabetes mellitus without complication, without long-term current use of insulin ([facility]) USE TO TEST BLOOD SUGAR TWICE DAILY 50 strip 11 Active gabapentin (Neurontin) 100 MG capsule TAKE 1 CAPSULE BY MOUTH AT BEDTIME 30 capsule 3 Active pantoprazole (ProtoNix) 40 MG EC tabletIndications:C hronic gastroesophageal reflux disease Do not crush, chew, or split.TAKE 1 TABLET BY MOUTH TWICE DAILY IN THE MORNING AND IN THE EVENING 60 tablet Active Antacid Extra Strength 750 MG chewable tabletIndications:C hronic gastroesophageal reflux disease CHEW 1 TABLET BY MOUTH TWICE DAILY IN THE MORNING AND IN THE EVENING NEEDED FOR HEARTBURN 30 tablet Active Alcohol Swabs (Alcohol Prep) 70 % pads USE DAILY DIRECTED 100 each Active Aspirin EC Adult Low Dose 81 MG EC tabletIndications:T ype 2 diabetes mellitus with other specified complication, unspecified whether long-term insulin use ([facility]) TAKE 1 TABLET BY MOUTH AT BEDTIME 90 tablet 025 Active Lancets (OneTouch Delica Plus [id number]) misc TEST BLOOD SUGAR TWICE DAILY 100 each Active famotidine (Pepcid) 40 MG tablet TAKE 1 TABLET BY MOUTH AT BEDTIME 30 tablet 025 Active docusate sodium (Colace) 100 MG capsuleIndications: Chronic constipation TAKE 1 CAPSULE BY MOUTH TWICE DAILY IN THE MORNING AND IN THE EVENING 180 capsule 1 025 Active Lancets (OneTouch Delica Plus [id number]) misc 1 each 2 times daily. TEST BLOOD SUGAR TWICE DAILY 100 each 11 024 2024 Discontinued famotidine (Pepcid) 40 MG tablet TAKE 1 TABLET BY MOUTH AT BEDTIME 30 tablet 11 024 2024 Discontinued docusate sodium (Colace) 100 MG capsuleIndications: Chronic constipation TAKE 1 CAPSULE BY MOUTH TWICE DAILY IN THE MORNING AND IN THE EVENING 180 capsule 025 2024 Discontinued Active Problems Problem Noted Date [...] Encounters Date Type Department Care Team Description 02/06/2025 Refill [facility] MEDICINE [address] [place] [address] Marbella Sofia, Chronic constipation 01/29/2025 Refill [facility] MEDICINE [address] [place] [address] Marbella Sofia DO 01/22/2025 Refill [facility] [address] [place] [address] Marbella Sofia DO 01/06/2025 Refill [facility] [address] [place] [address] Abbie Noble MD Type 2 diabetes mellitus with other specified complication, unspecified whether long-term insulin use ([facility]) 12/11/2024 Telephone [facility] MEDICINE [address] [place] [address] Marbella Sofia, Recall Appt. 12/11/2024 Travel 12/10/2024 Refill [facility] MEDICINE [address] [place], [place] [phone] Marbella Sofia DO Chronic gastroesophageal reflux disease 12/10/2024 Refill [facility] MEDICINE [address] [place], [place] [phone] Rayne Shin MD from Last 3 Months Immunizations Name Administration [...] [facility]INE [address] [place] [address] Marbella Sofia DO [address] [place] [address] 04/01/2025 2:30 PM EDT Office Visit [facility] OPTOMETRY [address] [place], [place] [phone] Gina Kirkpatrick, OD [address] [place] [address] Health Maintenance Due Date Last Done Comments CT Colonography 1950 FIT DNA/Cologuard 1950 FIT 1950 FOBT 1950 Sigmoidoscopy 1950 Diabetes: Foot Exam 1960 Alcohol/Substance Use Screening 1962 RSV Patients and Patients Aged 60 years or older (1 - Risk 60-74 years 1-dose series) 2010 DTaP/Tdap/Td Vaccines (2 - Td or Tdap) 04/21/2020 04/21/2010 Depression Screening 02/14/2024 02/13/2023, 11/28/19 23 SDOH [...] Generalized anxiety disorder Coronary artery disease involving [place] coronary artery of [place] heart, unspecified whether angina present Hypothyroidism, unspecified [...] Generalized anxiety disorder Coronary artery disease involving [place] coronary artery of [place] heart, unspecified whether angina present Hypothyroidism, unspecified [...] Generalized anxiety disorder Coronary artery disease involving [place] coronary artery of [place] heart, unspecified whether angina present Hypothyroidism, unspecified [...] Generalized anxiety disorder Coronary artery disease involving [place] coronary artery of [place] heart, unspecified whether angina present Hypothyroidism, unspecified [...] AM EDT) Hepatitis C Antibody Nonreactive Nonreactive [facility] Comment:Antibodies to HCV no t detected; does not exclude early acuteHCV infection. Blood Venous blood specimen / Unknown 08/04/2024 9:48 AM EDT 08/04/2024 9:48 AM EDT us Marbella Sofia DO LAB BLOOD ORDERABLES Final R esult Performing Organization Address [facility] Co de Phone Number [facility] [address] [place] [address] [phone] * (ABNORMAL) Hemoglobin A1c (08/04/2024 9:48 AM EDT) Hemoglobin A1c 6.5(H) <6.0 % [facility] Comment:Hemoglobin A1C Refer ence Range Adults: 4.8 - 6.0 % Non diabetic: < 6.0 % Goal: < 7.0 %Additional Action Suggested: > 8.0 %Note: Hemoglobin A1c results are invalid for patients with abnormal amounts of HbF. Blood transfusions may impact the HbA1c concentration in the patient sample. Estimated Average Glucose 140 mg/dL [facility] Comment:eAG = Estimated ave rage glucose which is %A1C expressed asaverage glucose, using the formula of the L5U-ZdbhqsvGdwlofx Glucose study (ADAG), Diabetes Care, Vol.31,#8,May. 2007 Blood Venous blood specimen / Unknown 08/04/2024 9:48 AM EDT 08/04/2024 9:48 AM EDT Marbella Sofia DO LAB BLOOD ORDERABLES Final R esult Performing Organization Address [facility] Co de Phone Number [facility] [address] [place] [address] [phone] * (ABNORMAL) Lipid Panel, Standard (08/04/2024 9:48 AM EDT) Triglycerides 169(H) <150 mg/dL [facility] Comment:Desirable Triglyceri de: less than 150 mg/dLBorderline High Triglyceride 150-199 mg/dLHigh Triglyceride: 200-499 mg/dLVery High Triglyceride: greater than or equal to 5OO mg/dL Cholesterol 124 <200 mg/dL [facility] Comment:Desirable Cholestero l: less than 200 mg/dLBorderline High Cholesterol: 200-239 mg/dLHigh Cholesterol: greater than 239 mg/dL LDL Cholesterol Calculated 53 <100 mg/dL [facility] Comment:Desirable LDL: less than 100 mg/dLNear Optimal/Above Optimal LDL: 110- 129 mg/dLBorderline High LDL: 130-159 mg/dLHigh LDL: 160-189 mg/dLVery High LDL: greater than or equal to 190 mg/dL HDL Cholesterol 38(L) >40 mg/dL [facility] Comment:Desirable HDL: great er than 40 mg/dL Note: This HDL assay may give artificially low results in patients with liver disease. Blood Venous blood specimen / Unknown 08/04/2024 9:48 AM EDT 08/04/2024 9:48 AM EDT Marbella Sofia DO LAB BLOOD ORDERABLES Final R esult Performing Organization Address [facility] Co de Phone Number [facility] [address] [place] [phone] * Albumin, Random Urine W/Creatinine (08/04/2024 9:45 AM EDT) Creatinine, Urine 137.82 mg/dL [facility] Microalbumin Urine 6.0 mg/L [facility] Microalbum Creatinine Ratio Ur 4.3 <30 ug/mg cr [facility] Comment:Albumin/Creatinine R atio Reference Ranges: Normal: < 30 ug/mg creatinine Microalbuminuria: 30 - 300 ug/mg creatinineClinical Albuminuria: > 300 ug/mg creatinine Urine (Urine, Random) 08/04/2024 9:45 AM EDT 08/04/2024 10:03 AM EDT Marbella Sofia DO LAB URINE ORDERABLES Final R esult Performing Organization Address [facility]/ZIP Co de Phone Number [facility] [address] [place] [phone] * Hm Colonoscopy (08/07/2019 3:09 PM EDT) Historical Provider MD HEALTH MAINTENANCE Final Result from Last 3 Months or Most Recently Relevant to Health Maintenance Insurance [facility] CUST[employer]IAL OPTIONS (HMO D-SNP) PAUL HUERTA [id number] Care Teams Desktop Support Manager Relationship Specialty Start Date End Date Marbella Sofia DO [address] [place] [phone] PCP - General Family Medicine 05/01/14
--- OUTSIDE RECORDS SUMMARY | 2025-02-11 11:58 | XMS_ITS | Encounter Summary ---
Author Organization [facility] Address [address] [facility] 7t [place] [address] Care Team Providers Care Last Ironer Name Role Phone Marbella Sofia DO Primary Care Provider [phone] Encounter Details Date Type Department Care Team (Late st Contact Info) Description 11/27/2022 Abstract [facility] MEDICINE [address] [place] [phone] Marbella Sofia DO [address] [place] [phone] Social History Tobacco Use Types Packs/Day Years [...] Description 02/13/2025 11:15 AM EDT Office Visit [facility] MEDIC[facility] [address] [place] [address] Marbella Sofia DO [address] [place] [address] 04/01/2025 2:30 PM EDT Office Visit [facility] OPTOMETRY [address] [place] [address] Gina Kirkpatrick, LG [address] [place] [address] documented as of this encounter Visit Diagnoses Not on filedocumented in this encounter Care Teams Last Ironer Relationship Specialty Start Date End Date Marbella Sofia DO [address] [place] [address] PCP - General Family Medicine 05/01/14 documented as of this encounter
--- OUTSIDE RECORDS SUMMARY | 2025-02-11 11:58 | XMS_ITS | Encounter Summary ---
Author Organization [employer] Address [address] [place] [address] Care Team Providers Care Cold Rolling Supervisor Name Role Phone Marbella Sofia DO Primary Care Provider + [phone] Reason for Visit * Reason Comments Med Refill Encounter Details Date Type Department Care Team (Late st Contact Info) Description 02/06/2025 Refill [facility] MEDICINE [address] [place], [place] [phone] Marbella Sofia DO [address] [place], [place] [phone] Chronic constipation Social History Tobacco Use Types [...] Description 02/13/2025 11:15 AM EDT Office Visit [facility] MEDICINE [address] [place] [address] Marbella Sofia DO [address] [place] [address] 04/01/2025 2:30 PM EDT Office Visit [facility] OPTOMETRY [address] [place] [address] Casimiro, Gina, OD [address] [place] [address] documented as of this encounter Visit Diagnoses Diagnosis Chronic constipation Unspecified constipation documented in this encounter Additional Health Concerns Assessment Noted Time PHQ-9 Depression Total Score: 16 11/28/2 023 10:33 AM EST documented as of this encounter Care Teams Cold Rolling Supervisor Relationship Specialty Start Date End Date Marbella Sofia DO [address] [place] [address] PCP - General Family Medicine 05/01/14 documented as of this encounter
--- OUTSIDE RECORDS SUMMARY | 2025-02-11 11:58 | XMS_ITS | Encounter Summary ---
Author Organization [employer] Address [address] [place] [address] Care Team Providers Care Telemarketing Supervisor Name Role Phone Marbella Sofia DO Primary Care Provider [phone] Encounter Details Date Type Department Care Team (Late st Contact Info) Description 01/23/2024 Orders Only [facility] MEDICINE [address] [place] [address] Provider, MD Eron Social History Tobacco Use [...] Description 02/13/2025 11:15 AM EDT Office Visit [facility] MEDICINE [address] [place] [address] Marbella Sofia DO [address] [place] [address] 04/01/2025 2:30 PM EDT Office Visit [facility] OPTOMETRY [address] [place], [place] [phone] CasimiroGina amaro, OD [address] [place] [address] documented as of this encounter Procedures Procedure [...] documented as of this encounter Care Teams Telemarketing Supervisor Relationship Specialty Start Date End Date Marbella Sofia DO [address] [place] [address] PCP - General Family Medicine 05/01/14 documented as of this encounter
--- OUTSIDE RECORDS SUMMARY | 2025-02-11 11:58 | XMS_ITS | Encounter Summary ---
Author Organization [facility] Address [address] [facility] 7t [place] [address] Care Team Providers Care Line Maintenance Name Role Phone Marbella Sofia DO Primary Care Provider Encounter Details Date Type Department Care Team (Latest Contact Info) Description 01/26/2022 Abstract [facility] Dental, Provider, DDS Social History [...] Description 02/13/2025 11:15 AM EDT Office Visit [facility]IC[facility] [address] [place] [address] Marbella Sofia DO [address] [place] [address] 04/01/2025 2:30 PM EDT Office Visit [facility] OPTOMETRY [address] [place] [address] Casimiro, Gina, OD 230 [place] [address] documented as of this encounter Visit Diagnoses Not on filedocumented in this encounter Care Teams Line Maintenance Relationship Specialty Start Date End Date Marbella Sofia DO [address] [place] [address] PCP - General Family Medicine 05/01/14 documented as of this encounter
== END 2025-02-11 11:28 | disposition home or self-care (01) ==
LOC: HO.HUSH 10:37
PROVIDERS: PCP Family Medicine; Visit Provider Urology
DX: Z13.9 Encounter for screening, unspecified (principal)

== ENCOUNTER → 2025-02-11 10:36 | Outpatient (BNVA) | payer OTHER, SELFPAY | PROVIDERS: PCP Family Medicine; Visit Provider Urology | DX: R39.12 Poor urinary stream (principal); R35.1 Nocturia | CPT/HCPCS: 51798; 81003; 99212 ==

== ENCOUNTER 2025-02-25 10:18 | Outpatient (REF) | payer OTHER, SELFPAY ==
--- NOTE | ~2025-02-25 | XR_ITS ---
CLINICAL HISTORY: NECK AND SHOULDER PAIN --- Additional Notes or Special Instructions: O 4 views cervical spine Comparison: None Findings: Normal vertebral body alignment. No acute fractures or dislocation. Multilevel disc space narrowing and endplate osteophyte formation, as well as facet hypertrophy. Prevertebral soft tissues within normal limits. IMPRESSION: No acute findings. This document has been electronically signed by: Nelly Casey MD on 02/25/2025 18:54:27
--- NOTE | ~2025-02-25 | XR_ITS ---
CLINICAL HISTORY: NECK AND SHOULDER PAIN Three views of each shoulder. Comparison: None Findings: Bones intact. No dislocations. Periarticular osteophyte formation at the acromioclavicular and glenohumeral joints, indicating osteoarthritis. No erosions. No radiopaque foreign body. IMPRESSION: 1. No acute findings This document has been electronically signed by: Nelly Casey MD on 02/25/2025 18:54:42
--- NOTE | ~2025-02-25 | XR_ITS ---
CLINICAL HISTORY: PAIN AND SWELLING 3RD DIGIT 3 view left hand Comparison: CR - XR HAND LT MIN 3V - 02/25/25 10:33 EDT Findings: Bones intact. No dislocations. No significant loss of joint space or osteophytes. No erosions. No radiopaque foreign body. IMPRESSION: 1. No acute findings This document has been electronically signed by: Nelly Casey MD on 02/25/2025 18:53:32
--- NOTE | ~2025-02-25 | XR_ITS ---
CLINICAL HISTORY: persistent pain and swelling 3rd digit s o TFR 3 view left hand Comparison: None Findings: No fractures or dislocations. Mild arthritic change of the 1st interphalangeal joint. No erosions. No radiopaque foreign body. IMPRESSION: No acute bony abnormality. This document has been electronically signed by: Concepcion Branch MD on 02/25/2025 15:39:13
--- OUTSIDE RECORDS SUMMARY | 2025-02-25 11:18 | XMS_ITS | Clinical Summary ---
Author Organization [employer] Address [address] [place] [address] Care Team Providers Care Project Manager Interior Design Name Role Phone Marbella Sofia DO Primary Care Provider Allergies Active Allergy Reactions [...] BEDTIME NEEDED Active Blood Glucose Monitoring Suppl (Flixpress Verio) w/Device kit 1 each 2 times [...] BY MOUTH EVERY MORNING 90 capsule 3 Active FeroSul 325 (65 Fe) MG tabletIndications:A nemia, unspecified type TAKE 1 TABLET BY MOUTH EVERY MORNING 90 tablet 3 024 Active terazosin (Hytrin) 5 MG capsule Take 5 mg by mouth at bedtime. Active glucose blood (OneTouch Verio) test stripIndications:Ty pe 2 diabetes mellitus without complication, without long-term current use of insulin ([facility]) USE TO TEST BLOOD SUGAR TWICE [...] mellitus with other specified complication, unspecified whether chcf insulin use ([facility]) TAKE 1 TABLET BY MOUTH AT BEDTIME 90 tablet 025 Active Lancets (OneTouch Delica Plus [id number]) misc TEST BLOOD SUGAR TWICE DAILY 100 each 025 Active famotidine (Pepcid) 40 MG tablet TAKE 1 TABLET BY MOUTH AT BEDTIME 30 tablet 11 025 Active docusate sodium (Colace) 100 MG capsuleIndications: Chronic constipation TAKE 1 CAPSULE BY MOUTH TWICE DAILY IN THE MORNING AND IN THE EVENING 180 capsule 1 Active acetaminophen (Tylenol Extra Strength) 500 MG tablet Take 1 tablet (500 mg) by mouth every 6 (six) hours if needed for mild pain. 100 tablet 1 2025 Active Diclofenac Sodium 1 % gel Apply 2 g topically if needed in the morning, at noon, in the evening, and at bedtime (pain). 150 g 3 Active metoprolol succinate XL (Toprol XL) 25 MG 24 hr tablet Take 1 tablet (25 mg) by mouth Once per day. Do not crush or chew. 30 tablet 11 2025 Active famotidine (Pepcid) 40 MG tablet TAKE 1 TABLET BY MOUTH AT BEDTIME 30 tablet 11 024 2024 Discontinued metoprolol succinate XL (Toprol-XL) 50 MG 24 hr tablet Take 50 mg by mouth in the morning. 024 2024 Discontinued docusate sodium (Colace) 100 MG capsuleIndications: Chronic constipation TAKE 1 CAPSULE BY MOUTH TWICE DAILY IN THE MORNING AND IN THE EVENING 180 capsule 025 2024 Discontinued oxyCODONE (Roxicodone) 5 MG immediate release tabletIndications:N georg[place] and shoulder pain Take 1 tablet (5 mg) by mouth if needed in the morning and at bedtime for severe pain for up to 3 days. 6 tablet 2024 Active Problems Problem Noted Date Diagnosed Date Urinary frequency 07/16/2024 Peripheral polyneuropathy 07/16/2024 Cardiomyopathy 07/16/2024 Pulmonary nodules 11/28/2022 Generalized osteoarthritis 11/28/2022 Healthcare maintenance 11/28/2022 Chronic constipation 11/28/2022 Hypothyroidism 10/02/2016 Generalized anxiety disorder 10/20/2015 Chronic low back pain 07/28/2015 Coronary artery disease 07/28/2015 Essential hypertension 07/28/2015 Chronic gastroesophageal reflux disease 07/28/20 Hyperlipidemia 07/28/2015 Tinnitus 07/28/2015 Tubular adenoma of colon 07/28/2015 Type 2 diabetes mellitus 07/28/2015 Resolved Problems Problem Noted Date Diagnosed Date Resolved Date Chronic back pain 11/28/2022 11/28/2022 Osteoarthritis 11/28/2022 11/28/2022 Encounters Date Type Department Care Team Description 02/13/2025 11:15 AM EDT Office Visit [facility] [address] [place] [address] Marbella Sofia DO Type 2 diabetes mellitus without complication, without long-term current use of insulin ([facility]) (Primary Dx); Essential hypertension; Other hyperlipidemia; Generalized anxiety disorder; Coronary artery disease involving [place] coronary artery of [place] heart, unspecified whether angina present; Hypothyroidism, unspecified type; Anemia, unspecified type; Chronic gastroesophageal reflux disease; Chronic constipation; Urinary frequency; Peripheral polyneuropathy; Generalized osteoarthritis; Chronic bilateral low back pain, unspecified whether sciatica present; Neck and shoulder pain; Finger swelling; Sleep-disordered breathing; Healthcare maintenance; Cataract of both eyes, unspecified cataract type 02/13/2025 Travel 02/06/2025 Refill [facility] [address] [place] [address] Marbella Sofia DO Chronic constipation 01/29/2025 Refill [facility] [address] [place] [address] Marbella Sofia DO 01/22/2025 Refill [facility] [address] [place] [address] Marbella Sofia DO 01/06/2025 Refill [facility] [address] [place] [address] Abbie Noble MD Type 2 diabetes mellitus with other specified complication, unspecified whether supervisor intermediates insulin use ([facility]) 12/11/2024 Telephone [facility] [address] [place] [address] Marbella Sofia DO Recall Appt. 12/11/2024 Travel 12/10/2024 Refill [facility] [address] [place] [address] Marbella Sofia DO Chronic gastroesophageal reflux disease 12/10/2024 Refill [facility] [address] [place] [address] Rayne Shin MD from Last 3 Months Immunizations Immunization Administration Dates Next Due Hep B, adult [...] Answer Date Recorded Patient Health Questionnaire-9 Score 8 02/13/2025 Patient Health Questionnaire-9 Score 8 02/13/2025 Last PHQ-9: Questionnaire Data Not on file 0 02/13/2025 Housing Stability Answer Date Recorded What is your housing situation today? I have luc napier 02/13/[address] you li ve. Do you have problems with any of the following? None of the above 02/13/2025 Food Insecurity Answer Date Recorded Within the past 12 months, y ou worried that your food would run out before you got money to buy more: Never True 02/13/2025 Within the past 12 months,th e food you bought just didn't last and you didn't have enough money to get more: Never True 11/2024 Transportation Answer Date Recorded In the past 12 months, has l ack of transportation kept you from medical appts, meetings, work or from getting things needed for daily living? No 02/13/2025 Utilities Answer Date Recorded In the past 12 months, has t he electric, gas, oil or water company threatened to shut off services in your home? No 02/13/2025 Depression Answer Date Recorded Patient Health Questionnaire-2 Score 3 02/13/2025 Internet Access Answer Date Recorded Internet Access Q1 Yes 02/13/2025 Internet Access Q2 Not on file 02/13/2025 Sex and Gender Information Value Date Recorded Sex Assigned at Male 08/14/2022 10:20 AM EDT Legal Sex Male 10:20 AM EDT Gender Identity Male 08/14/2022 10:20 AM EDT Sexual Orientation Straight 08/14/2022 10 :20 AM EDT Last Filed Vital Signs Vital Sign Reading Time Taken Comments Blood Pressure 112/58 02/13/2025 2:40 PM EDT Pulse 50 02/13/2025 11:25 AM EDT irre gular Temperature 36.1 ??C (97 ??F) 02/13/2025 11:25 AM EDT Respiratory Rate 18 02/13/2025 11:25 AM EDT Oxygen Saturation 97% 03/04/2024 11:25 AM EDT Inhaled Oxygen Concentration - - Weight 76.4 kg (168 lb 6 oz) 02/13/2025 11:25 AM EDT Height 167.6 cm (5' 6 ) 02/13/2025 11:25 AM EDT Body Mass Index 27.18 02/13/2025 11:25 AM EDT Plan of Treatment Upcoming Encounters Date Type Department Care Team (Late st Contact Info) Description 04/01/2025 2:30 PM EDT Office Visit [facility] [address] [facility] [place] [address] Casimiro, Megan, OD [address] [place] [address] Health Maintenance Due Date Last Done Comments CT Colonography 1950 FIT DNA/Cologuard 1950 FIT 1950 FOBT 1950 Sigmoidoscopy 1950 Diabetes: Foot Exam 1960 RSV Patients and Patients Aged 60 years or older (1 - Risk 60-74 years 1-dose series) 2010 DTaP/Tdap/Td Vaccines (2 - Td or Tdap) 04/21/2020 04/21/2010 Colonoscopy 08/07/2024 08/07/2019 Colorectal Cancer Screening 08/07/2024 Eye Exam 12/14/2024 12/14/2022, 11/2022, 12/14/2022, Additional history exists Diabetes: Urine Protein Screening 08/04/2025 08/04/2024, 05/03/2022, 11/22/2020 Lipid Panel 08/04/2025 08/04/2024, 10/16, 02/19/2023, Additional history exists Diabetes: Hemoglobin A1C 08/16/2025 025, 08/04/2024, 07/16/2024, Additional history exists Alcohol/Substance Use Screening 02/13/2026 02/13/2025 Depression Screening 02/13/2026 02/13/2025, 02/14/20 25 SDOH Screening 02/13/2026 02/13/2025 Tobacco Screening 02/13/2026 02/13/2025 Hepatitis B Vaccines Completed 04/23/2018, 03/02/2017, 01/23/2017 [...] Procedure Name Priority Date/Time Associated Diagnosis Comments POCT GLYCATED HEMOGLOBIN, TOTAL Routine 02/13/2025 11:30 AM EDT Type 2 diabetes mellitus without complication, without long-term current use of insulin (CMS/HCC) POCT GLUCOSE Routine 02/13/2025 11:29 AM EDT Type 2 diabetes mellitus without complication, without long-term current use of insulin (CMS/HCC) HEPATITIS C AB W/REFL TO HCV RNA, QN, PCR Routine 08/04/2024 9:48 AM EDT Type 2 diabetes mellitus without complication, without long-term current use of insulin (CMS/HCC) Essential hypertension Other hyperlipidemia Generalized anxiety disorder Coronary artery disease involving [place] coronary artery of [place] heart, unspecified whether angina present Hypothyroidism, unspecified [...] Generalized anxiety disorder Coronary artery disease involving [place] coronary artery of [place] heart, unspecified whether angina present Hypothyroidism, unspecified [...] complication, without long-term current use of insulin ([facility]) Essential hypertension Other hyperlipidemia Generalized anxiety disorder Coronary artery disease involving [place] coronary artery of [place] heart, unspecified whether angina present Hypothyroidism, unspecified [...] Recently Relevant to Health Maintenance Results * (ABNORMAL) POCT HGB A1C (02/13/2025 11:30 AM EDT) Hemoglobin A1C 6.3(A) 4.0 - 6.0 % QC Media Lot # [id number] Lot# Expiration Date Swab 02/13/2025 11:3 0 AM EDT Marbella Sofia DO POINT OF CARE TEST ENTER/HAMILTON T ORDERABLES Final Result * POCT Glucose (02/13/2025 11:29 AM EDT) Glucose Blood, POC 177 60 - 200 mg/dL Comment:Random QC Media Lot # [id number] Lot# Expiration Date Blood Capillary blood specimen / Unknown 02/13/2025 11:29 AM EDT Marbella Sofia DO POINT OF CARE TEST ENTER/HAMILTON T ORDERABLES Final Result * Hepatitis C Antibody with Reflex to HCV, RNA, Quantitative, Real-Time PCR (08/04/2024 9:48 AM EDT) Hepatitis C Antibody Nonreactive Nonreactive [facility] Comment:Antibodies to HCV no t detected; does not exclude early acuteHCV infection. Blood Venous blood specimen / Unknown 08/04/2024 9:48 AM EDT 08/04/2024 9:48 AM EDT us Marbella Sofia DO LAB BLOOD ORDERABLES Final R esult Performing Organization Address City/[facility]/ZIP Co de Phone Number [facility] [address] [place] [phone] * (ABNORMAL) Lipid Panel, Standard (08/04/2024 9:48 AM EDT) Triglycerides 169(H) <150 mg/dL [facility] Comment:Desirable Triglyceri de: less than 150 mg/dLBorderline High Triglyceride 150-199 mg/dLHigh Triglyceride: 200-499 mg/dLVery High Triglyceride: greater than or equal to 5OO mg/dL Cholesterol 124 <200 mg/dL [facility] Comment:Desirable Cholestero l: less than 200 mg/dLBorderline High Cholesterol: 200-239 mg/dLHigh Cholesterol: greater than 239 mg/dL LDL Cholesterol Calculated 53 <100 mg/dL [facility] Comment:Desirable LDL: less than 100 mg/dLNear Optimal/Above Optimal LDL: 110- 129 mg/dLBorderline High LDL: 130-159 mg/dLHigh LDL: 160-189 mg/dLVery High LDL: greater than or equal to 190 mg/dL HDL Cholesterol 38(L) >40 mg/dL [facility] Comment:Desirable HDL: great er than 40 mg/dL Note: This HDL assay may give artificially low results in patients with liver disease. Blood Venous blood specimen / Unknown 08/04/2024 9:48 AM EDT 08/04/2024 9:48 AM EDT us Marbella Sofia DO LAB BLOOD ORDERABLES Final R esult Performing Organization Address City/[facility]/ZIP Co de Phone Number [facility] [address] [place] [phone] [phone] * Albumin, Random Urine W/Creatinine (08/04/2024 9:45 AM EDT) Creatinine, Urine 137.82 mg/dL [facility] Microalbumin Urine 6.0 mg/L [facility] Microalbum Creatinine Ratio Ur 4.3 <30 ug/mg cr [facility] Comment:Albumin/Creatinine R atio Reference Ranges: Normal: < 30 ug/mg creatinine Microalbuminuria: 30 - 300 ug/mg creatinineClinical Albuminuria: > 300 ug/mg creatinine Urine (Urine, Random) 08/04/2024 9:45 AM EDT 08/04/2024 10:03 AM EDT Marbella Sofia DO LAB URINE ORDERABLES Final R esult [facility] [address] [place] [phone] [phone] * Colonoscopy (08/07/2019 3:09 PM EDT) Historical Provider MD HEALTH MAINTENANCE Final Result from Last 3 Months or Most Recently Relevant to Health Maintenance Insurance [facility] STAND[employer] (HMO D-SNP) Care Teams Project Manager Interior Design Relationship Specialty Start Date End Date Marbella Sofia DO [address] [place], [place] [phone] PCP - General Family Medicine 05/01/14
--- OUTSIDE RECORDS SUMMARY | 2025-02-25 11:18 | XMS_ITS | Encounter Summary ---
Author Organization [employer] Address [address] [place] [address] Care Team Providers Care Bilingual Operator Name Role Phone Marbella Sofia DO Primary Care Provider [phone] Encounter Details Date Type Department Care Team (Late st Contact Info) Description 11/27/2022 Abstract [facility] [address] [place], [place] [phone] Marbella Sofia DO [address] [place], [place] [phone] Social History Tobacco Use Types Packs/Day Years [...] AM EST documented as of this encounter Functional Status * Over the past 2 weeks, how often have you been bothered by any of the following problems? Question Answer Date of Assessment Author Patient Health Questionnaire-2 Score 6 11/15 10:33 AM Citlali De Paz [place] * If you checked off any problems on this questionnaire so far, Question Answer Date of Assessment Author How difficult have these problems made it for you to do your work, take care of things at home, or get along with other people? Somewhat difficult 11/28/2022 10:33 AM EST Rosas, Louyomy, M A * Over the past 2 weeks, how often have you been bothered by any of the following problems? Question Answer Date of Assessment Author Little interest or pleasure in doing things Nearly every day 11/28/2022 10:33 AM Citlali De Paz MA Feeling down, depressed, or hopeless Nearly every day 11/28/2022 10:33 AM Citlali De Paz [place] Trouble falling or staying asleep, or sleeping too much More than half the days 11/28/2022 10:33 AM Citlali De Paz MA Feeling tired or having little energy Several days 11/28/2022 10:33 AM Citlali De Paz MA Poor appetite or overeating Not at all 11/28/2022 10:33 AM Citlali De Paz MA Feeling bad about yourself - or that you are a failure or have let yourself or your family down Several days 11/28/2022 10:33 AM Citlali De Paz MA Trouble concentrating on things, such as reading the newspaper or watching television Nearly every day 11/28/2022 10:33 AM Citlali De Paz MA Moving or speaking so slowly that other people could have noticed? Or the opposite - being so fidgety or restless that you have been moving around a lot more than usual. Nearly every day 11/28/2022 10:33 AM Citlali De Paz MA Thoughts that you would be better off or hurting yourself in some way Not at all 11/28/2022 10:33 AM Citlali De Paz MA Patient Health Questionnaire-9 Score 16 11/28/2022 10:33 AM Citlali De Paz MA documented as of this encounter Plan of Treatment Upcoming Encounters Date Type Department Care Team (Late st Contact Info) Description 04/01/2025 2:30 PM EDT Office Visit [facility] [address] [place] [address] Gina Kirkpatrick, OD [address] [place] [address] documented as of this encounter Visit Diagnoses Not on filedocumented in this encounter Care Teams Bilingual Operator Relationship Specialty Start Date End Date Marbella Sofia DO [address] [place] [phone] PCP - General Family Medicine 05/01/14 documented as of this encounter
--- OUTSIDE RECORDS SUMMARY | 2025-02-25 11:18 | XMS_ITS | Encounter Summary ---
Author Organization [employer] Address [address] [place] [address] Care Team Providers Care Operations Accountant Name Role Phone Marbella Sofia DO Primary Care Provider Encounter Details Date Type Department Care Team (Latest Contact Info) Description 01/26/2022 Abstract [facility] CONVERSIONS Dental, Provider, DDS Social History Tobacco [...] Office Visit [facility] OPTOMETRY [address] [place] [address] Casimiro, Megan, OD [address] [place] [address] documented as of this encounter Visit Diagnoses Not on filedocumented in this encounter Care Teams Operations Accountant Relationship Specialty Start Date End Date Marbella Sofia DO [address] [place] [address] PCP - General Family Medicine 05/01/14 documented as of this encounter
--- OUTSIDE RECORDS SUMMARY | 2025-02-25 11:18 | XMS_ITS | Encounter Summary ---
Author Organization [employer] Address [address] [place] [address] Care Team Providers Care Nurse Tech Name Role Phone Radha Sofiafer Primary Care Provider Encounter Details Date Type Department Care Team (Late st Contact Info) Description 01/23/2024 Orders Only [facility] [address] [place] [address] Provider, MD Eron Social History Tobacco Use [...] Description 04/01/2025 2:30 PM EDT Office Visit [facility] [address] [place] [address] Gina Kirkpatrick, OD [address] [place] [address] documented as of this encounter Procedures Procedure [...] documented as of this encounter Care Teams Nurse Tech Relationship Specialty Start Date End Date Marbella Sofia DO [address] [place] [address] PCP - General Family Medicine 05/01/14 documented as of this encounter
--- OUTSIDE RECORDS SUMMARY | 2025-02-25 11:18 | XMS_ITS ---
Author Organization [facility] Address [address] [place] [address] Care Team Providers Care Sem Manager Name Role Phone Sarah Sofia M.D. Primary Care Provider Leighton Pelayo Jr Unavailable Allergies No Known Allergies REASON FOR VISIT Patient presents today for constipation Medications Medication SIG (Take, Route, Frequency, Duration) Notes Start Date End Date Status Colace 100 MG 1 capsule as needed Orally Once a day Active FeroSul 325 (65 Fe) MG 1 tablet Orally T hree times a Week Active Fiber-Lax 625 MG 2 tablets as needed Orally Three times a day Active Gabapentin 100 MG 1 capsule at bedtime Orally Once a day Active Hydrocortisone (Perianal) 1 % 1 application Externally Twice a day Active Pantoprazole Sodium Active Lisinopril Active metFORMIN HCl ER Act armando Atrovent HFA Active Levothyroxine Sodium Active Ranolazine ER Active Famotidine 40 MG Oral for 30 Days Active Isosorbide Mononitrate ER 30 MG Oral for 30 Days Active Terazosin HCl 5 MG Oral for 90 Days Active traZODone HCl 100 MG Oral for 30 Days Active Metoprolol Succinate 50 MG 1 capsule Ora lly Once a day Active Vitamin C 500 MG 1 tablet Orally Once a day Active Sertraline HCl 100 MG Oral for 30 Days Active clonazePAM 2 MG Oral for 30 Days Active Aspirin 81 81 MG 1 tablet Orally Once a day Active Vitamin D3 Super Strength 50 MCG (1999 UT) 1 tablet Orally Once a day Active Diclofenac Sodium 1 % as directed Externally Active Baclofen 10 MG 1 tablet as needed Orally Twice a day Active Calcium Antacid Extra Strength 750 MG 1 tablet Orally Once a day Active Atorvastatin Calcium 80 MG 1 tablet Oral ly Once a day Active Social History Tobacco Use: Social History Observation Description Date Details (start date - stop date) Never Smoker NA - NA Tobacco Control (Standard) Question Answer Notes Tobacco use: Nonsmoker AUDIT-C (Standard) Question Answer Notes Did you have a drink containing alcohol in the p ast year? No Points 0 Interpretation Negative Vital Signs Temperature 99.1 degrees Fahrenheit 02/12/20 25 Blood pressure systolic 001 mm Hg 02/12/20 25 Blood pressure diastolic 01 mm Hg 025 Height 67 in 02/11/2025 Weight 165.6 lbs 02/11/2025 BMI 25.93 kg/m2 02/11/2025 Encounters Encounter Location Date Provider Diagnosis [facility] [address] [place] [address] 02/11/2025 Leighton Plasencia Jr Gastro-esophageal reflux disease without esophagitis K21.9 and Encounter for screening for malignant neoplasm of colon Z12.11 Assessments Encounter Date Diagnosis (ICD Code) Assessment Notes Treatment Notes Treatment Clinical Notes Section Notes 02/11/2025 Gastro-esophage al reflux disease without esophagitis (ICD-10 - K21.9) We discussed gastroesophageal reflux disease today. We discussed diet, lifestyle modifications, and weight management regarding the treatment of reflux. He will continue pantoprazole and 02/11/2025 he reports stopping azathioprine about 8 months ago 02/06, recall famotidine. We reviewed his endoscopy results from 2010. He is due for follow-up colonoscopy. This will be arranged if he agrees. He wishes to talk to his primary care provider about this. We discussed risks and benefits of the procedure today. He will need to stop aspirin 1 week before the procedure 02/11/2025 Encounter for screening for malignant neoplasm of colon (ICD-10 - Z12.11) We discussed gastroesophageal reflux disease today. We discussed diet, lifestyle modifications, and weight management regarding the treatment of reflux. He will continue pantoprazole and 02/11/2025 he reports stopping azathioprine about 8 months ago 02/06, recall famotidine. We reviewed his endoscopy results from 2010. He is due for follow-up colonoscopy. This will be arranged if he agrees. He wishes to talk to his primary care provider about this. We discussed risks and benefits of the procedure today. He will need to stop aspirin 1 week before the procedure Plan Of Treatment Next Appt Details Follow Up: 1 Year, Reason: Progress Notes * RODNEY UREÑADOB:1950 ([age] yo M)Acc No.[id number]:02/11/2025 Progress Notes Patient:RODNEY BROWN Provider:?Leighton Plasencia MD :1950???Age:74 Y???Sex:Male Ehsan e:02/11/2025 Address:[address] [place], [place] [phone] Pcp:Sarah Sofia M.D. Subjective: * Chief Complaints: * ???1. Patient presents today for constipation. * HPI: ???New symptom(s):? The patient is a pleasant 74-year-old man seen today in consultation. He has a longstanding history of gastroesophageal reflux disease with substernal burning precipitated by typical foods including spicy foods and fatty foods. Symptoms have been well-controlled on famotidine 40 mg daily. He has no dysphagia, hematemesis, or melena. Weight and appetite have been stable. Endoscopy in 2010 showed no evidence of H. pylori. He also has a history of colon polyps and last underwent colonoscopy in 2019 with removal of a tubular adenoma. Since that time, he has done well. He has no complaints of rectal bleeding or change in his bowel habits. He does have intermittent constipation for which he takes a high-fiber diet. This can be associated with some left lower quadrant discomfort until the pain resolves after a bowel movement. * ROS:?General/Constitutional:?Change in appetite?denies.?Fatigue?denies.?ENT:?Patient denies?difficulty swallowing.?Respiratory:?Patient denies?shortness of breath.?Cardiovascular:?Patient denies?chest pain.?Gastrointestinal:?Comments?See HPI for details.?Genitourinary:?Difficulty urinating?denies.?Incontinence?denies.?Musculoskeletal:?Patient denies?muscle aches.?Skin:?Patient denies?pruritis.?Neurologic:?Patient denies?low back pain.?Psychiatric:?Patient denies?mental or physical abuse.? * Medical History:?Diabetes me llitus, Coronary artery disease with history of [place] and stent placement, cardiomyopathy, Hypertension, Low back pain, GERD, Anxiety/depression, Hyperlipidemia, Tinnitus, Hypothyroidism. * Surgical History:?trigger fi nger release . * Family History:?Father: dece ased.?Mother: .? Mom had a tumor behind her stomach.? Not sure of family history. * Social History:?Tobacco Use:?Tobacco Control (Standard)?Tobacco use:?Nonsmoker.?Miscellaneous:?Marital status: . ???Drug/Alcohol:?AUDIT-C (Standard)?Did you have a drink containing alcohol in the past year??No,?Points?0,?Interpretation?Negative.? * Medications:?Taking Ranolazi ne ER , Taking Pantoprazole Sodium , Taking metFORMIN HCl ER , Taking Lisinopril , Taking Levothyroxine Sodium , Taking Atrovent HFA , Taking Hydrocortisone (Perianal) 1 % Cream 1 application Externally Twice a day , Taking Gabapentin 100 MG Capsule 1 capsule at bedtime Orally Once a day , Taking Fiber- Lax 625 MG Tablet 2 tablets as needed Orally Three times a day , Taking FeroSul 325 (65 Fe) MG Tablet 1 tablet Orally Three times a Week , Taking Colace 100 MG Capsule 1 capsule as needed Orally Once a day , Taking Diclofenac Sodium 1 % Gel as directed Externally , Taking Vitamin D3 Super Strength 50 MCG (2000 UT) Tablet 1 tablet Orally Once a day , Taking Calcium Antacid Extra Strength 750 MG Tablet Chewable 1 tablet Orally Once a day , Taking Baclofen 10 MG Tablet 1 tablet as needed Orally Twice a day , Taking Atorvastatin Calcium 80 MG Tablet 1 tablet Orally Once a day , Taking Aspirin 81 81 MG Tablet Delayed Release 1 tablet Orally Once a day , Taking Vitamin C 500 MG Tablet Chewable 1 tablet Orally Once a day , Taking Metoprolol Succinate 50 MG Capsule ER 24 Hour Sprinkle 1 capsule Orally Once a day , Taking clonazePAM 2 MG Tablet Oral , Taking Sertraline HCl 100 MG Tablet Oral , Taking Isosorbide Mononitrate ER 30 MG Tablet Extended Release 24 Hour Oral , Taking Famotidine 40 MG Tablet Oral , Taking traZODone HCl 100 MG Tablet Oral , Taking Terazosin HCl 5 MG Capsule Oral , Medication List reviewed and reconciled with the patient * Allergies:?N.K.D.A. Objective: * Vitals:?Wt:165.6lbs, Ht: 67 in, BMI:25.93Index, BP:001/01mm Hg, Temp:99.1, Ht- cm: 170.18, Wt-k.12. * Examination: ???General Examination: ?GENERAL APPEARANCE:?in no acute distress.?HEAD:?normocephalic.?EYES:?sclera non-icteric.?ORAL CAVITY:?mucosa moist.?NECK/THYROID:?no lymphadenopathy.?SKIN:?anicteric.?HEART:?S1, S2 normal, no murmurs.?LUNGS:?clear to auscultation bilaterally.?CHEST:?normal shape and expansion.?ABDOMEN:?soft, nontender, nondistended, bowel sounds present, no organomegaly .?EXTREMITIES:?no clubbing, cyanosis, or edema.?PSYCH:?cognitive function intact.? Assessment: * Assessment: 1.?Gastro-esophageal reflux disease without esophagitis - K21.9 (Primary)???2.?Encounter for screening for malignant neoplasm of colon - Z12.11??? We discussed gastroesophagea l reflux disease today. We discussed diet, lifestyle modifications, and weight management regarding the treatment of reflux. He will continue pantoprazole and 02/11/2025 he reports stopping azathioprine about 8 months ago 02/06, recall famotidine. We reviewed his endoscopy results from 2010. He is due for follow-up colonoscopy. This will be arranged if he agrees. He wishes to talk to his primary care provider about this. We discussed risks and benefits of the procedure today. He will need to stop aspirin 1 week before the procedure Plan: * Treatment: * Procedure Codes:?3017F COLOR ECTAL CA SCREEN DOC REV, G9903 Pt scrn tbco id as non user, G9744 PATIENT NOT ELIG D/T ACTIVE DX HTN * Preventive Medicine:? ??Counseling:?Care goal follow-up plan:?Above Normal BMI Follow-up?Dietary management education, guidance, and counseling,?BMI management provided?Yes.? ??Screenings:?Fall Risk Screening?Fall Risk Assessment:?One fall with injury in the past year,?Screening:?One fall with injury in the past year,?Assessment:?Not performed, no reason specified,?Plan of Care:?Documented,?Type of fall plan of care:?Balance, strength and gait training or instruction provided.? * Follow Up:?1 Year * * Sign off status: Completed true * Provider:?Leighton Plasencia MD Date:?0 02/11/2025 Generated for Laith haas/Alberto/Lanreitting on:?02/25/2025 11:18 AM EDT History and Physical Notes * HPI (History of Present Illness) Category Sub-Category Detail Notes Category Not es New symptom(s) The patient is a pleasant 74-year-old man seen today in consultation. He has a longstanding history of gastroesophageal reflux disease with substernal burning precipitated by typical foods including spicy foods and fatty foods. Symptoms have been well-controlled on famotidine 40 mg daily. He has no dysphagia, hematemesis, or melena. Weight and appetite have been stable. Endoscopy in 2010 showed no evidence of H. pylori. He also has a history of colon polyps and last underwent colonoscopy in 2019 with removal of a tubular adenoma. Since that time, he has done well. He has no complaints of rectal bleeding or change in his bowel habits. He does have intermittent constipation for which he takes a high-fiber diet. This can be associated with some left lower quadrant discomfort until the pain resolves after a bowel movement. Examination Category Sub-Category Detail Notes Category Not es General Examination GENERAL APPEARANCE: in no acute di stress HEAD: normocephalic EYES: sclera non-icteric NECK/THYROID: no lymphadenopathy HEART: S1, S2 normal, no mu rmurs CHEST: normal shape and exp ansion LUNGS: clear to auscultatio n bilaterally ABDOMEN: soft, nontender, non distended, bowel sounds present, no organomegaly SKIN: anicteric EXTREMITIES: no clubbing, cyanosi s, or edema PSYCH: cognitive function i ntact ORAL CAVITY: mucosa moist
--- OUTSIDE RECORDS SUMMARY | 2025-02-25 11:18 | XMS_ITS ---
Author Organization [facility] Address [address] [place] [address] Care Team Providers Care Product Planner Name Role Phone Bismark Marinelli, Sarah Primary Care Provider Mary jean-claude Plasencia Jr Leighton Mora [phone] REASON FOR VISIT Patient presents today for constipation Encounters Encounter Location Date Provider Diagnosis [facility] [address] [place] [address] 11/06/2024 Leighton Plasencia Jr Plan Of Treatment No Information Progress Notes * RODNEY UREÑADOB:1950 ([age] yo M)Acc No.[id number]:11/06/2024 Progress Notes Patient:?RODNEY UREÑA Provider:?Leighton Plasencia MD :1950???Age:73 Y???Sex:Male Ehsan e:11/06/2024 Address:[address] [place] [id number] Pcp:Sarah Sofia M.D. Subjective: * Chief Complaints: [...] Plasencia MD Date:?0 11/06/2024 Generated for Laith haas/Alberto/eTransmitting on:?02/25/2025 11:18 AM EDT
--- OUTSIDE RECORDS SUMMARY | 2025-02-25 11:18 | XMS_ITS | Patient Health Record ---
Author Organization [facility] Address [address] [place] [address] Care Team Providers Care Cylinder Valve Repairer Name Role Phone Sarah Sofia M.D. Primary Care Provider Mary Plasencia Jr Leighton Unavailable [phone] Allergies No Known Allergies Reason For Referral No Information Medications Medication SIG (Take, Route, Frequency, Duration) Notes Start Date End Date Status Pantoprazole Sodium Active Ranolazine ER Active Gabapentin 100 MG 1 capsule at bedtime Orally Once a day Active Metoprolol Succinate 50 MG 1 capsule Ora lly Once a day Active Hydrocortisone (Perianal) 1 % 1 application Externally Twice a day Active Sertraline HCl 100 MG Oral for 30 Days Active clonazePAM 2 MG Oral for 30 Days Active Lisinopril Active metFORMIN HCl ER Act armando Atrovent HFA Active Levothyroxine Sodium Active Colace 100 MG 1 capsule as needed Orally Once a day Active FeroSul 325 (65 Fe) MG 1 tablet Orally T hree times a Week Active Vitamin D3 Super Strength 50 MCG (2000 UT) 1 tablet Orally Once a day Active Diclofenac Sodium 1 % as directed Externally Active Fiber-Lax 625 MG 2 tablets as needed Orally Three times a day Active Vitamin C 500 MG 1 tablet Orally Once a day Active Baclofen 10 MG 1 tablet as needed Orally Twice a day Active Calcium Antacid Extra Strength 750 MG 1 tablet Orally Once a day Active Aspirin 81 81 MG 1 tablet Orally Once a day Active Atorvastatin Calcium 80 MG 1 tablet Oral ly Once a day Active Famotidine 40 MG Oral for 30 Days Active Isosorbide Mononitrate ER 30 MG Oral for 30 Days Active Terazosin HCl 5 MG Oral for 90 Days Active traZODone HCl 100 MG Oral for 30 Days Active Immunizations Vaccine Route Administration Date Status Comme nts Influenza Unknown 08/05/2024 Administered Social History Tobacco Use: Social History Observation Description Date Details (start date - stop date) Never Smoker NA - NA Tobacco Control (Standard) Question Answer Notes Tobacco use: Nonsmoker AUDIT-C (Standard) Question Answer Notes Did you have a drink containing alcohol in the p ast year? No Points 0 Interpretation Negative Vital Signs Temperature 99.1 degrees Fahrenheit 02/11/2025 Blood pressure diastolic 01 mm Hg 02/11/2025 Height 67 in 02/11/2025 Blood pressure systolic 001 mm Hg 02/11/2025 Weight 165.6 lbs 02/11/2025 BMI 25.93 kg/m2 02/11/2025 Encounters Encounter Location Date Provider Diagnosis [facility] [address] [place] [phone] 02/11/2025 Leighton Plasencia Jr Gastro-esophageal reflux disease without esophagitis K21.9 and Encounter for screening for malignant neoplasm of colon Z12.11 [facility] [address] [place] [phone] 11/06/2024 Leighton Plasencia Jr Assessments Encounter Date Diagnosis (ICD Code) Assessment [...] week before the procedure Plan Of Treatment No Information Insurance Providers Payer Name Payer Address Payer Phone Subscriber Number Group Number Insured Name Patient Relationship to Insured Coverage Start Date Coverage End Date [facility] [address] Attn Claims [place] [id number] RODNEY UREÑA Self - patient is the insured MEDICARE OF [place] [address] [place] [id number] [id number] RODNEY UREÑA Self - patient is the insured 6 MEDICAID OF [facility] [address] [place] [address] [phone] [id number] RODNEY UREÑA Self - patient is the insured Medical (General) History Medical History History ICD Code diabetes mellitus Coronary artery disease with history of [place] and stent placement, cardiomyopathy Hypertension low back pain GERD Anxiety/depression Hyperlipidemia Tinnitus Hypothyroidism Surgical History Surgery Date(Month/Year) trigger finger release
--- OUTSIDE RECORDS SUMMARY | 2025-02-25 11:18 | XMS_ITS ---
Author Organization [facility] Address [address] [place] [address] Care Team Providers Care Chief Librarian Work With Blind Name Role Phone Sarah Sofia M.D. Primary Care Provider Mary vailable Leighton Plasencia Jr [phone] REASON FOR VISIT R/S OV Encounters Encounter Location Date Provider Diagnosis [facility] [address] [place] [address] 11/06/2024 Leighton Plasencia Jr Plan Of Treatment No Information Progress Notes * RODNEY UREÑADOB:1950 ([age] yo M)Acc No.[id number]:11/06/2024 Patient:?UREÑARODNEY :1950???Age:73 Y???Sex:Male Address:[address] , [place], [address] * true * Date:? Generated for Denilsoni samina/Alberto/eTransmitting on:?02/25/2025 11:18 AM EDT
[2025-02-25 11:41] LABS: MANUAL DIFF FLAG NO
[2025-02-25 12:09] LABS: Basophils Percent Auto 0.4 % (0-2); Eosinophils Absolute Auto 0.2 X10*3/uL (0.0-0.4); Hematocrit 39.4 % (42.0-52.0); Hemoglobin 13.7 g/dl (14.0-18.0); Imm Gran Abs Auto 0.03 X10*3/uL (0.00-0.03); Imm Gran Pct Auto 0.5 % (0.0-0.4); Lymphocytes Absolute Auto 1.3 X10*3/uL (1.2-4.9); Lymphocytes Percent Auto 24.5 % (20-40); Mean Corpuscular HGB Conc 34.8 g/dl (31.0-36.0); Mean Corpuscular Volume 92.1 fL (80.0-98.0); Monocytes Absolute Auto 0.5 X10*3/uL (0.1-1.2); Monocytes Percent Auto 9.5 % (2-11); Neutrophils Absolute Auto 3.3 x10*3/uL (2.0-8.3); Neutrophils Percent Auto 61.1 % (45-73); Platelet Count 194 X10*3/uL (160-400); Red Blood Count 4.28 X10*6/uL (4.60-5.80); Red Cell Distribution Width 12.1 % (11.0-16.0); White Blood Count 5.5 X10*3/uL (4.8-10.8)
[2025-02-25 12:39] LABS: Anion Gap 11 (12-20); Blood Urea Nitrogen 11 mg/dL (9-16); Calcium 8.9 mg/dL (8.4-10.2); Carbon Dioxide 28 mmol/L (22-29); Chloride 104 mmol/L (96-108); Estimated Glomerular Filt Rate > 60; Glucose Random 144 mg/dL (60-115); Iron 109 mcg/dL (45-160); Percent Iron Saturation 39 % (15-50); Potassium 4.3 mmol/L (3.3-5.1); Sodium 139 mmol/L (135-145); Total Iron Binding Capacity 282 mcg/dL (228-428); Unsaturated Iron Binding 173 ug/dL
[2025-02-25 12:54] LABS: Ferritin 136 ng/mL (20-250); Free T4 (Free Thyroxine) 1.04 ng/dL (0.71-1.85); Prostate Specific Antigen 0.84 ng/mL (<0.05-4.0)
[2025-02-25 13:07] LABS: Folate 13.4 ng/mL (> or = 4.0); Prostate Specific Antigen Scr 0.82 ng/mL (<0.05-4.0); Vitamin B12 299 pg/mL (200-900)
== END 2025-02-25 10:19 | disposition home or self-care (01) ==
LOC: HO.XRAY 10:18
PROVIDERS: Urology; PCP Family Medicine; Visit Provider Family Medicine
DX: M54.2 Cervicalgia (principal); M25.519 Pain in unspecified shoulder; M79.89 Other specified soft tissue disorders; R35.1 Nocturia; D64.9 Anemia, unspecified; R35.0 Frequency of micturition; Z12.5 Encounter for screening for malignant neoplasm of prostate
CPT/HCPCS: 36415; 72040; 73030; 73130; 80048; 82607; 82728; 82746; 83540; 84153; 84439; 84443; 85025

== ENCOUNTER → 2025-02-25 10:23 | Outpatient (BNV) | payer OTHER, SELFPAY | PROVIDERS: PCP Family Medicine; Visit Provider Radiology Diagnostic Radiology | DX: M54.2 Cervicalgia (principal); M25.511 Pain in right shoulder; M25.512 Pain in left shoulder; M79.642 Pain in left hand; M79.645 Pain in left finger(s) | CPT/HCPCS: 72040; 73030; 73130 ==

== ENCOUNTER → 2025-04-29 12:49 | Outpatient (REF) | payer OTHER, SELFPAY ==
--- OUTSIDE RECORDS SUMMARY | 2024-11-06 09:55 | XMS_ITS ---
Author Organization [facility] Address [address] [place] [address] Care Team Providers Care Fire Hose Curer Name Role Phone Bismark Marinelli, Sarah Primary Care Provider Leighton Pelayo Jr REASON FOR VISIT Patient presents today for constipation Encounters Encounter Location Date Provider Diagnosis [facility] [address] [place] [phone] 11/06/2024 Leighton Plasencia Jr Plan Of Treatment No Information Progress Notes * ADELITARODNEYDOB:1950 ([age] yo M)Acc No.[id number]:11/06/2024 Progress Notes Patient: RODNEY RODRIGEZ Provider: Bahman Plasencia MD :1950 A ge:73 Y S ex:Male Date:11/06/2024 Address:[address] Pcp:Sarah Sofia M.D. Subjective: * Chief Complaints: * 1 . Patient presents today for constipation. * Medical History: Objective: * Vitals: Assessment: Plan: * Treatment: * * The named appointment provid er may or may not be the originator of this progress note, and it is not deemed complete until electronically signed by the appointment provider. Sign off status: Pending * Provider: Bahman Plasencia MD Date: 0 11/06/2024 Generated for Denilsoni samina/Alberto/eTransmitting on: 0 04/29/2025 01:42 PM EDT
--- OUTSIDE RECORDS SUMMARY | 2025-04-29 13:42 | XMS_ITS | Encounter Summary ---
Author Organization [employer] [facility] Address [address] [place] [address] Care Team Providers Care Cruise Coordinator Name Role Phone Marbella Sofia DO Primary Care Provider [phone] Encounter Details Date Type Department Care Team (Late st Contact Info) Description 11/27/2022 Abstract [facility] [address] [place], [place] [phone] Marbella Sofia DO [address] [place], [place] [phone] Social History Tobacco Use Types Packs/Day Years [...] as of this encounter Plan of Treatment Not on file documented as of this encounter Visit Diagnoses Not on filedocumented in this encounter Care Teams Cruise Coordinator Relationship Specialty Start Date End Date Marbella Sofia DO [address] [place] [id number] PCP - General Family Medicine 05/01/14 documented as of this encounter
== END ==
LOC: HO.SL 12:49
PROVIDERS: PCP Family Medicine; Visit Provider Family Medicine
DX: G47.30 Sleep apnea, unspecified (principal); R06.83 Snoring
CPT/HCPCS: 95806

== ENCOUNTER → 2025-04-29 21:00 | Outpatient (BNV) | payer OTHER, SELFPAY | PROVIDERS: PCP Family Medicine; Visit Provider Internal Medicine | DX: R06.83 Snoring (principal) | CPT/HCPCS: 95806 ==

== ENCOUNTER 2025-07-28 14:55 | Outpatient (REF) | payer OTHER, SELFPAY ==
--- OUTSIDE RECORDS SUMMARY | 2024-11-06 09:55 | XMS_ITS ---
Author Organization [facility] Address [address] [place] [address] Care Team Providers Care Manager Sharepoint Name Role Phone Bismark Marinelli, Sarah Primary Care Provider Leighton Pelayo Jr [phone] REASON FOR VISIT Patient presents today for constipation Encounters Encounter Location Date Provider Diagnosis [facility] [address] [place] [phone] 11/06/2024 Leighton Plasencia Jr Plan Of Treatment No Information Progress Notes * ADELITARODNEYDOB:1950 ([age] yo M)Acc No.[id number]:11/06/2024 Progress Notes Patient: RODNEY RODRIGEZ Provider: Bahman Plasencia MD :1950 A ge:73 Y S ex:Male Date:11/06/2024 Address:[address] Pcp:Sarah Sofia M.D. Subjective: * Chief [...] 0 11/06/2024 Generated for Laith haas/Alberto/eTransmitting on: 01:29 PM EDT
--- OUTSIDE RECORDS SUMMARY | 2025-07-28 14:00 | XMS_ITS | Encounter Summary ---
Author Organization [employer] Address [address] [place] [address] Care Team Providers Care Assistant Broker Name Role Phone Bismark Marbella Primary Care Provider + [phone] Reason for Visit * Reason Comments UTI Encounter Details Date Type Department Care Team (Late st Contact Info) Description 07/28/2025 2:00 PM EDT Office Visit [facility] [address] [place], [place] [phone] Lower urinary tract symptoms (LUTS) (Primary Dx); Benign prostatic hyperplasia with urinary frequency; Dysuria Social History Tobacco Use Types Packs/Day Years [...] AM EDT documented as of this encounter Last Filed Vital Signs Vital Sign Reading Time Taken Comments Blood Pressure 140/79 07/28/2025 2:22 PM EDT Pulse 77 07/28/2025 2:22 PM EDT Temperature 37.2 C (99 F) 07/28/2025 2:22 PM EDT Respiratory Rate 16 07/28/2025 2:22 PM EDT Oxygen Saturation 97% 07/28/2025 2:22 PM EDT Inhaled Oxygen Concentration - - Weight 74.8 kg (165 lb) 07/28/2025 2:22 PM EDT Height 167.6 cm (5' 6 ) 07/28/2025 2:22 PM EDT Body Mass Index 26.63 07/28/2025 2:22 PM EDT documented in this encounter Plan of Treatment Not on file documented as of this encounter Procedures Procedure Name Priority Date/Time Associated Diagnosis Comments PSA, TOTAL WITH REFLEX TO PSA, FREE Routine 07/28/2025 3:00 PM EDT Lower urinary tract symptoms (LUTS) Benign prostatic hyperplasia with urinary frequency CBC WITH AUTO DIFFERENTIAL Routine 07/28/2025 3:00 PM EDT Lower urinary tract symptoms (LUTS) Benign prostatic hyperplasia with urinary frequency POCT URINALYSIS DIPSTICK Routine 07/28/2025 2:27 PM EDT Dysuria documented in this encounter Results * PSA, Total With Reflex to PSA, Free (07/28/2025 3:00 PM EDT) PSA,Total (Free>4and<10) 0.81 0.00 - 4.00 ng/mL [facility] Comment:A Free PSA was not p erformed: The percentage of Free PSA can be used to enhance the differentiation of prostate cancer from benign prostatic disease in subjects whose PSA levels are between 4.0 and 10.0 ng/mL. For subjects whose PSA levels are below 4.0 or above 10.0 ng/mL, the risk of prostate cancer is determined on the basis of the PSA alone. Therefore the % Free PSA is recommended only for those subjects whose PSA levels are between 4.0 and 10.0 ng/mL.PSA methodology: Murray Alinity i ChemiluminescentMicroparticle Immunoassay (CMIA) 07/28/2025 3:00 PM EDT 07/28/2025 4:15 PM EDT us Kaye Maldonado MD LAB BLOOD ORDERABLES Fin al Result [facility] [address] [place] [phone] * (ABNORMAL) CBC auto differential (07/28/2025 3:00 PM EDT) White Blood Count 5.2 4.8 - 10.8 X10*3/uL [facility] Red Blood Count 3.97(L) 4.60 - 5.80 X10*6/uL [facility] Hemoglobin 12.7(L) 14.0 - 18.0 g/dl [facility] Hematocrit 37.4(L) 42.0 - 52.0 % [facility] Mean Corpuscular Volume 94.2 80.0 - 98.0 fL [facility] Mean Corpuscular Hemoglobin 32.0 27.0 - 33.0 pg [facility] Mean Corpuscular HGB Conc 34.0 31.0 - 36.0 g/dl [facility] Red Cell Distribution Width 11.5 11.0 - 16.0 % [facility] Platelet Count 210 160 - 400 X10*3/uL [facility] Mean Platelet Volume 9.6 9.4 - 12.4 fL [facility] Neutrophils Percent Auto 61.9 45 - 73 % [facility] Imm Gran Pct Auto 0.6(H) 0.0 - 0.4 % [facility] Lymphocytes Percent Auto 24.7 20 - 40 % [facility] Monocytes Percent Auto 9.7 2 - 11 % [facility] Eosinophils Percent Auto 2.7 0 - 4 % [facility] Basophils Percent Auto 0.4 0 - 2 % [facility] NRBC Pct Auto 0.0 0.0 - 0.2 /100WBC [facility] Neutrophils Absolute Auto 3.2 2.0 - 8.3 x10*3/uL [facility] Imm Gran Abs Auto 0.03 0.00 - 0.03 X10*3/uL [facility] Lymphocytes Absolute Auto 1.3 1.2 - 4.9 X10*3/uL [facility] Monocytes Absolute Auto 0.5 0.1 - 1.2 X10*3/uL [facility] Eosinophils Absolute Auto 0.1 0.0 - 0.4 X10*3/uL [facility] Basophils Absolute Auto 0.0 0.0 - 0.2 X10*3/uL [facility] NRBC Abs Auto 0.000 0.0 - 0.012 X10*3/uL [facility] Blood Venous blood specimen / Unknown 07/28/2025 3:00 PM EDT 07/28/2025 4:15 PM EDT us Kaye Maldonado MD LAB BLOOD ORDERABLES Fin al Result [facility] [address] [place], [place] [phone] * POCT Urinalysis (07/28/2025 2:27 PM EDT) Color, UA Yellow Clarity, UA Clear Glucose, UA Negative Bilirubin, UA Moderate Ketones, UA Positive Comment:trace Spec Grav, UA 1.030 Blood, UA Negative Negative, None Detected pH, UA 5.5 Protein, UA Trace Comment:3 Urobilinogen, UA 0.2 Comment:30mg/dL Leukocytes, UA Negative Negative, Rare, Trace Nitrite, UA Negative Negative, None Detected Appearance, UA yellow QC Media Lot # [id number] Lot# Expiration Date Urine (Urine, Random) 07/28/2025 2:27 PM EDT Kaye Maldonado MD POINT OF CARE TEST ENTER /EDIT ORDERABLES Final Result documented in this encounter Visit Diagnoses Diagnosis Lower urinary tract symptoms (LUTS)- Primary Benign prostatic hyperplasia with urinary frequency Dysuria documented in this encounter Additional Health Concerns Assessment Noted Time PHQ-9 Depression Total Score: 8 02/14/20 25 11:26 AM EDT documented as of this encounter Care Teams Assistant Broker Relationship Specialty Start Date End Date Marbella Sofia DO [address] [place] [phone] PCP - General Family Medicine 05/01/14 documented as of this encounter
[2025-07-28 16:19] LABS: MANUAL DIFF FLAG NO
[2025-07-28 16:34] LABS: Hematocrit 37.4 % (42.0-52.0); Hemoglobin 12.7 g/dl (14.0-18.0); Imm Gran Abs Auto 0.03 X10*3/uL (0.00-0.03); Imm Gran Pct Auto 0.6 % (0.0-0.4); Lymphocytes Absolute Auto 1.3 X10*3/uL (1.2-4.9); Mean Corpuscular HGB Conc 34.0 g/dl (31.0-36.0); Mean Corpuscular Hemoglobin 32.0 pg (27.0-33.0); Mean Corpuscular Volume 94.2 fL (80.0-98.0); NRBC Abs Auto 0.000 X10*3/uL (0.0-0.012); NRBC Pct Auto 0.0 /100WBC (0.0-0.2); Platelet Count 210 X10*3/uL (160-400); Red Blood Count 3.97 X10*6/uL (4.60-5.80); White Blood Count 5.2 X10*3/uL (4.8-10.8)
[2025-07-28 17:06] LABS: PSA,Total (Free>4and<10) 0.81 ng/mL (0.00-4.00)
[2025-07-28 17:20] LABS: Iron 99 mcg/dL (45-160); Percent Iron Saturation 37 % (15-50); Total Iron Binding Capacity 270 mcg/dL (228-428); Unsaturated Iron Binding 171 ug/dL
[2025-07-28 17:22] LABS: Folate 10.3 ng/mL (> or = 4.0); Vitamin B12 265 pg/mL (200-900)
[2025-07-28 17:42] LABS: Ferritin 222 ng/mL (20-250)
--- OUTSIDE RECORDS SUMMARY | 2025-07-28 17:49 | XMS_ITS | Encounter Summary ---
Author Organization [employer] Address [address] [place] [address] Care Team Providers Care Vp Project Name Role Phone Marbella Sofia DO Primary Care Provider [phone] Encounter Details Date Type Department Care Team (Late st Contact Info) Description 11/27/2022 Abstract [facility] [address] [place], [place] [phone] Marbella Sofia DO [address] [place], [place] [phone] Social History Tobacco Use Types Packs/Day Years [...] on filedocumented in this encounter Care Teams Vp Project Relationship Specialty Start Date End Date Marbella Sofia DO [address] [place] [phone] PCP - General Family Medicine 05/01/14 documented as of this encounter
--- OUTSIDE RECORDS SUMMARY | 2025-07-28 17:50 | XMS_ITS | Patient Health Record ---
Author Organization [facility] Address [address] [place] [address] Care Team Providers Care Layboy Tender Name Role Phone Sarah Sofia M.D. Primary Care Provider Mary Plasencia Jr Leighton Unavailable [phone] Allergies No Known Allergies Reason For Referral [...] a day Active Sertraline HCl 100 MG Oral; Duration: 30 Days Active clonazePAM 2 MG Oral; Duration: 30 Days Active Lisinopril Active metFORMIN HCl [...] Once a day Active Famotidine 40 MG Oral; Duration: 30 Days Active Isosorbide Mononitrate ER 30 MG Oral; Duration: 30 Days Acti ve Terazosin HCl 5 MG Oral; Duration: 90 Days Active traZODone HCl 100 MG Oral; Duration: 30 Days Active Immunizations Vaccine Route Administration [...] 02/11/2025 Encounters Encounter Location Date Provider Diagnosis [facility] [address] [place] [phone] 02/11/2025 Leighton Plasencia Jr Gastro-esophageal reflux disease without esophagitis K21.9 and Encounter for screening for malignant neoplasm of colon Z12.11 [facility] [address] [place] [phone] 11/06/2024 Leighton Plasencia Jr Assessments Encounter Date [...] Insured Coverage Start Date Coverage End Date [facility] [address] Attn Claims PAUL Mix [id number] RODNEY UREÑA Self - patient is the insured MEDICARE OF [place] [address] [place] [address] [id number] RODNEY UREÑA Self - patient is the insured 6 MEDICAID OF [facility] [address] [place] [address] [id number] RODNEY UREÑA Self - patient is the insured Medical (General) History Medical History History ICD Code diabetes mellitus Coronary artery disease with history of ME and stent placement, cardiomyopathy Hypertension low back pain GERD Anxiety/depression Hyperlipidemia Tinnitus Hypothyroidism Surgical History Surgery Date(Month/Year) trigger finger release
--- OUTSIDE RECORDS SUMMARY | 2025-07-28 17:50 | XMS_ITS | Encounter Summary ---
Author Organization [employer] Address [address] [place] [address] Care Team Providers Care Xerox Machine Assembler Name Role Phone Marbella Sofia Primary Care Provider Encounter Details Date Type Department Care Team (Latest Contact Info) Description 07/28/2025 Travel Social History Tobacco Use Types Packs/Day [...] documented as of this encounter Care Teams Xerox Machine Assembler Relationship Specialty Start Date End Date Marbella Sofia DO [address] [place] [phone] PCP - General Family Medicine 05/01/14 documented as of this encounter
--- OUTSIDE RECORDS SUMMARY | 2025-07-28 17:50 | XMS_ITS | Clinical Summary ---
Author Organization [employer] Address [address] [facility] [address] [place] [address] Care Team Providers Care Tanning Wheel Operator Name Role Phone Radha Sofiafer Primary [...] BEDTIME NEEDED Active Blood Glucose Monitoring Suppl ([employer] Verio) w/Device kit 1 each 2 times daily. TEST BLOOD SUGAR TWICE DAILY 1 kit Active Fiber-Lax 625 MG tabletIndications:O ther constipation TAKE 2 TABLETS BY MOUTH ONCE DAILY IN THE MORNING 180 tablet 1 Active terazosin (Hytrin) 5 MG capsule Take 5 mg by mouth at bedtime. Active glucose blood ([employer]Touch Verio) test stripIndications:Ty pe 2 diabetes mellitus without complication, without long-term current use of insulin (HCC) USE TO TEST BLOOD SUGAR TWICE DAILY 50 strip Active pantoprazole (ProtoNix) 40 MG EC tabletIndications:C [...] pads USE DAILY DIRECTED 100 each Active Lancets (Xcedexuch Delica Plus Uxriks38A) misc TEST BLOOD SUGAR TWICE DAILY 100 each Active famotidine (Pepcid) 40 MG tablet TAKE 1 TABLET BY MOUTH AT BEDTIME 30 tablet Active docusate sodium (Colace) 100 MG capsuleIndications: Chronic constipation TAKE 1 CAPSULE BY MOUTH TWICE DAILY IN THE MORNING AND IN THE EVENING 180 capsule Active acetaminophen (Tylenol Extra Strength) 500 MG tablet Take 1 tablet (500 mg) by mouth every 6 (six) hours if needed for mild pain. 100 tablet 2025 Active Diclofenac Sodium 1 % gel Apply 2 g topically if needed in the morning, at noon, in the evening, and at bedtime (pain). 150 g Active metoprolol succinate XL (Toprol XL) 25 MG 24 hr tablet Take 1 tablet (25 mg) by mouth Once per day. Do not crush or chew. 30 tablet 2025 Active atorvastatin (Lipitor) 80 MG tablet TAKE 1 TABLET BY MOUTH AT BEDTIME 90 tablet Active Ferrous Sulfate (iron) 325 (65 Fe) MG tabletIndications:A nemia, unspecified type TAKE 1 TABLET BY MOUTH EVERY MORNING 90 tablet Active levothyroxine (Synthroid, Levoxyl) 88 MCG tablet TAKE 1 TABLET BY MOUTH EVERY MORNING 90 tablet Active lisinopril 2.5 MG tablet TAKE 1/2 TABLET BY MOUTH EVERY MORNING 45 tablet 3 025 Active metFORMIN XR (Glucophage-XR) 500 MG 24 hr tablet TAKE 1 TABLET BY MOUTH EVERY EVENING WITH MEALS 90 tablet 3 025 Active D3 Super Strength 50 MCG (1999 UT) capsuleIndications: Vitamin D deficiency TAKE 1 TABLET BY MOUTH EVERY MORNING 90 capsule 3 025 Active gabapentin (Neurontin) 100 MG capsule TAKE 1 CAPSULE BY MOUTH AT BEDTIME 30 capsule 3 025 Active Aspirin Low Dose 81 MG EC tabletIndications:T ype 2 diabetes mellitus with other specified complication, unspecified whether longterm insulin use (HCC) TAKE 1 TABLET BY MOUTH AT BEDTIME 90 tablet 025 Active aspirin (Aspirin EC Adult Low Dose) 81 MG EC tabletIndications:T ype 2 diabetes mellitus with other specified complication, unspecified whether exterminator helper insulin use (HCC) Take 1 tablet (81 mg) by mouth at bedtime. 90 tablet 025 2024 Discontinued Active Problems Problem Noted [...] Encounters Date Type Department Care Team Description 07/28/2025 2:00 PM EDT Office Visit [facility] [address] [place] [phone] Lower urinary tract symptoms (LUTS) (Primary Dx); Benign prostatic hyperplasia with urinary frequency; Dysuria 07/28/2025 Orders Only [facility] [address] [place] [phone] Marbella Sofia DO 07/28/2025 Travel 07/15/2025 Refill [facility] [address] [place] [address] Marbella Sofia DO Type 2 diabetes mellitus with other specified complication, unspecified whether exterminator helper insulin use (HCC) 05/02/2025 Refill [facility] [address] [place] [address] Marbella Sofia DO from Last 3 Months Immunizations Immunization Administration [...] Mass Index 26.63 07/28/2025 2:22 PM EDT Plan of Treatment Health Maintenance Due Date Last Done Comments CT Colonography 1950 FIT DNA/Cologuard 1950 FIT 1950 FOBT 1950 Sigmoidoscopy 1950 Diabetes: Foot Exam 1960 RSV Patients and Patients Aged 60 years or older (1 - Risk 60-74 years 1-dose series) 2010 DTaP/Tdap/Td Vaccines (2 - Td or Tdap) 04/21/2020 04/21/2010 Colonoscopy 08/07/2024 08/07/2019 Colorectal Cancer Screening 08/07/2024 COVID-19 Vaccine ( season) 2025 07/16/2024, 09/26/2023, 11/07/2022, Additional history exists Influenza Vaccine (#1) 2025 , 06/25/2023, 11/28/2022, Additional history exists Diabetes: Urine Protein Screening 08/04/2025 08/04/2024, 05/03/2022, 11/22/2020 Lipid Panel 08/04/2025 08/04/2024, 10/16, 02/19/2023, Additional history exists Diabetes: Hemoglobin A1C 08/16/2025 025, 08/04/2024, 07/16/2024, Additional history exists Alcohol/Substance Use Screening 02/13/2026 02/13/2025 Depression Screening 02/13/2026 02/13/2025, 02/14/20 25 SDOH Screening 02/13/2026 02/13/2025 Tobacco Screening 07/28/2026 07/28/2025 Eye Exam 04/01/2027 04/01/2025, 03/15, 04/01/2025, Additional history exists Hepatitis B Vaccines Completed 04/23/2018, 03/02/2017, 01/23/2017 Zoster Vaccines Completed 09/16/2020, 05/15, 01/20/2016 Pneumococcal Vaccine: 50+ Years Completed 03/04/2024, 04/23/2018, 05/29/2016, Additional history exists Hepatitis C Screening Completed [...] patient's age to complete this topic Meningococcal B Vaccine Aged Out No l onger eligible based on patient's age to complete [...] Procedure Name Priority Date/Time Associated Diagnosis Comments VITAMIN B12/FOLATE, SERUM PANEL Routine 07/28/2025 3:00 PM EDT IRON AND TOTAL IRON BINDING CAPACITY Routine 07/28/2025 3:00 PM EDT PSA, TOTAL WITH REFLEX TO PSA, FREE Routine 07/28/2025 3:00 PM EDT Lower urinary tract symptoms (LUTS) Benign prostatic hyperplasia with urinary frequency CBC WITH AUTO DIFFERENTIAL Routine 07/28/2025 3:00 PM EDT Lower urinary tract symptoms (LUTS) Benign prostatic hyperplasia with urinary frequency FERRITIN Routine 07/28/2025 3:00 PM EDT Anemia, unspecified type POCT URINALYSIS DIPSTICK Routine 07/28/2025 2:27 PM EDT Dysuria POCT GLYCATED HEMOGLOBIN, TOTAL Routine 02/13/2025 11:30 AM EDT Type 2 diabetes mellitus without complication, without long-term current use of insulin (CMS/HCC) HEPATITIS C AB W/REFL TO HCV RNA, QN, PCR Routine 08/04/2024 9:48 AM EDT Type 2 diabetes mellitus without complication, without long-term current use of insulin (CMS/HCC) Essential hypertension Other hyperlipidemia Generalized anxiety disorder Coronary artery disease involving teller coronary artery of teller heart, unspecified whether angina present Hypothyroidism, unspecified [...] Generalized anxiety disorder Coronary artery disease involving teller coronary artery of teller heart, unspecified whether angina present Hypothyroidism, unspecified [...] Generalized anxiety disorder Coronary artery disease involving teller coronary artery of teller heart, unspecified whether angina present Hypothyroidism, unspecified [...] Recently Relevant to Health Maintenance Results * Vitamin B12 (Cobalamin) and Folate Panel, Serum (07/28/2025 3:00 PM EDT) Vitamin B12 265 200 - 900 pg/mL [facility] Comment:NORMAL 200-900 PG/ML INDETERMINATE 160-199 PG/ML DEFICIENT < 160 PG/ML Folate 10.3 > or = 4.0 ng/mL [facility] Comment:Reference Values:> o r = 4.0 ng/mL< 4.0 ng/mL suggests folate deficiency Methotrexate, aminopterin and folinic acid(leucovorin) are chemotherapeutic agents whose molecularstructures are similar to folate; therefore, the Architectfolate assay cannot be used for patients using these drugs. 07/28/2025 3:00 PM EDT 07/28/2025 4:15 PM EDT us Marbella Sofia DO LAB BLOOD ORDERABLES Final R esult Performing Organization Address [facility] Co de Phone Number [facility] [address] [place] [address] [phone] * PSA, Total With Reflex to PSA, Free (07/28/2025 3:00 PM EDT) PSA,Total (Free>4and<10) 0.81 0.00 - 4.00 ng/mL [facility] Comment:A Free PSA was not [...] MD LAB BLOOD ORDERABLES Fin al Result Performing Organization Address City/[facility]/ZIP Co de Phone Number [facility] [address] [place] [address] [phone] * (ABNORMAL) CBC auto differential (07/28/2025 3:00 PM EDT) White Blood Count 5.2 4.8 - 10.8 X10*3/uL [facility] Red Blood Count 3.97(L) 4.60 - 5.80 X10*6/uL [facility] Hemoglobin 12.7(L) 14.0 - 18.0 g/dl [facility] Hematocrit 37.4(L) 42.0 - 52.0 % [facility] Mean Corpuscular Volume 94.2 80.0 - 98.0 fL [facility] Mean Corpuscular Hemoglobin 32.0 27.0 - 33.0 pg [facility] Mean Corpuscular HGB Conc 34.0 31.0 - 36.0 g/dl [facility] Red Cell Distribution Width 11.5 11.0 - 16.0 % [facility] Platelet Count 210 160 - 400 X10*3/uL [facility] Mean Platelet Volume 9.6 9.4 - 12.4 fL [facility] Neutrophils Percent Auto 61.9 45 - 73 % [facility] Imm Gran Pct Auto 0.6(H) 0.0 - 0.4 % [facility] Lymphocytes Percent Auto 24.7 20 - 40 % [facility] Monocytes Percent Auto 9.7 2 - 11 % [facility] Eosinophils Percent Auto 2.7 0 - 4 % [facility] Basophils Percent Auto 0.4 0 - 2 % [facility] NRBC Pct Auto 0.0 0.0 - 0.2 /100WBC [facility] Neutrophils Absolute Auto 3.2 2.0 - 8.3 x10*3/uL [facility] Imm Gran Abs Auto 0.03 0.00 - 0.03 X10*3/uL [facility] Lymphocytes Absolute Auto 1.3 1.2 - 4.9 X10*3/uL [facility] Monocytes Absolute Auto 0.5 0.1 - 1.2 X10*3/uL [facility] Eosinophils Absolute Auto 0.1 0.0 - 0.4 X10*3/uL [facility] Basophils Absolute Auto 0.0 0.0 - 0.2 X10*3/uL [facility] NRBC Abs Auto 0.000 0.0 - 0.012 X10*3/uL [facility] Blood Venous blood specimen / Unknown 07/28/2025 3:00 PM EDT 07/28/2025 4:15 PM EDT us Kaye Maldonado MD LAB BLOOD ORDERABLES Fin al Result Performing Organization Address [facility] Co de Phone Number [facility] [address] [place] [phone] * Iron And Total Iron Binding Capacity (07/28/2025 3:00 PM EDT) Iron 99 45 - 160 mcg/dL [facility] Total Iron Binding Capacity 270 228 - 428 mcg/dL [facility] Percent Iron Saturation 37 15 - 50 % [facility] Unsaturated Iron Binding 171 ug/dL [facility] 07/28/2025 3:00 PM EDT 07/28/2025 4:15 PM EDT us Marbella Sofia DO LAB BLOOD ORDERABLES Final R esult Performing Organization Address [facility] Co de Phone Number [facility] [address] [place] [phone] * Ferritin (07/28/2025 3:00 PM EDT) Ferritin 222 20 - 250 ng/mL [facility] Blood Venous blood specimen / Unknown 07/28/2025 3:00 PM EDT 07/28/2025 4:15 PM EDT Marbella Sofia DO LAB BLOOD ORDERABLES Final R esult Performing Organization Address [facility] Co de Phone Number [facility] [address] [place] [phone] * POCT Urinalysis (07/28/2025 2:27 PM [...] CARE TEST ENTER /EDIT ORDERABLES Final Result * (ABNORMAL) POCT HGB A1C (02/13/2025 11:30 AM EDT) [facility] Hemoglobin A1C 6.3(A) 4.0 - 6.0 % QC Media Lot # [id number] Lot# Expiration Date Swab 02/13/2025 11:3 0 AM EDT Marbella Sofia DO POINT OF CARE TEST ENTER/HAMILTON T ORDERABLES Final Result * Hepatitis C Antibody with Reflex to HCV, RNA, Quantitative, Real-Time PCR (08/04/2024 9:48 AM EDT) [facility] Hepatitis C Antibody Nonreactive Nonreactive [facility] Comment:Antibodies to HCV no t detected; does not exclude early acuteHCV infection. Blood Venous blood specimen / Unknown 08/04/2024 9:48 AM EDT 08/04/2024 9:48 AM EDT Marbella Sofia DO LAB BLOOD ORDERABLES Final R esult [facility] [address] [place] [phone] * (ABNORMAL) Lipid Panel, Standard (08/04/2024 9:48 AM EDT) Triglycerides 169(H) <150 mg/dL [facility] Comment:Desirable Triglyceri de: less than 150 mg/dLBorderline High Triglyceride 150-199 mg/dLHigh Triglyceride: 200-499 mg/dLVery High Triglyceride: greater than or equal to 5OO mg/dL Cholesterol 124 <200 mg/dL [facility] Comment:Desirable Cholestero l: less than 200 mg/dLBorderline High Cholesterol: 200-239 mg/dLHigh Cholesterol: greater than 239 mg/dL LDL Cholesterol Calculated 53 <100 mg/dL [facility] Comment:Desirable LDL: less than 100 mg/dLNear Optimal/Above Optimal LDL: 110- 129 mg/dLBorderline High LDL: 130-159 mg/dLHigh LDL: 160-189 mg/dLVery High LDL: greater than or equal to 190 mg/dL HDL Cholesterol 38(L) >40 mg/dL [facility] Comment:Desirable HDL: great er than 40 mg/dL Note: This HDL assay may give artificially low results in patients with liver disease. Blood Venous blood specimen / Unknown 08/04/2024 9:48 AM EDT 08/04/2024 9:48 AM EDT us Marbella Sofia DO LAB BLOOD ORDERABLES Final R esult [facility] [address] [place] [phone] * Albumin, Random Urine W/Creatinine (08/04/2024 9:45 AM EDT) Creatinine, Urine 137.82 mg/dL [facility] Microalbumin Urine 6.0 mg/L [facility] Microalbum Creatinine Ratio Ur 4.3 <30 ug/mg cr [facility] Comment:Albumin/Creatinine R atio Reference Ranges: Normal: < 30 ug/mg creatinine Microalbuminuria: 30 - 300 ug/mg creatinineClinical Albuminuria: > 300 ug/mg creatinine Urine (Urine, Random) 08/04/2024 9:45 AM EDT 08/04/2024 10:03 AM EDT Marbella Sofia DO LAB URINE ORDERABLES Final R esult [facility] [address] [place] [phone] * Hm Colonoscopy (08/07/2019 3:09 PM EDT) us Historical Provider MD HEALTH MAINTENANCE Final Result from Last 3 Months or Most Recently Relevant to Health Maintenance Insurance [facility] [employer] (HMO D-SNP) Care Teams Tanning Wheel Operator Relationship Specialty Start Date End Date Marbella Sofia DO [address] [place] [phone] PCP - General Family Medicine 05/01/14
--- OUTSIDE RECORDS SUMMARY | 2025-07-28 17:50 | XMS_ITS | Encounter Summary ---
Author Organization [employer] Address [address] [place] [address] Care Team Providers Care Script Coordinator Name Role Phone Marbella Sofia DO Primary Care Provider + [phone] Encounter Details Date Type Department Care Team (Late st Contact Info) Description 07/28/2025 Orders Only [facility] MEDICINE [address] [place], [place] [phone] Marbella Sofia DO [address] [place], [place] [phone] Social History Tobacco Use Types Packs/Day Years [...] the past 12 months, has t he [facility], gas, oil or water [employer] threatened to shut off services in your [...] BINDING CAPACITY Routine 07/28/2025 3:00 PM EDT documented in this encounter Results * Vitamin B12 (Cobalamin) and Folate Panel, Serum (07/28/2025 3:00 PM EDT) Vitamin B12 265 200 - 900 pg/mL [facility] Comment:NORMAL 200-900 PG/ML INDETERMINATE 160-199 PG/ML DEFICIENT < 160 PG/ML Folate 10.3 > or = 4.0 ng/mL [facility] Comment:Reference Values:> o r = 4.0 ng/mL< 4.0 ng/mL suggests folate deficiency Methotrexate, aminopterin and folinic acid(leucovorin) are chemotherapeutic agents whose molecularstructures are similar to folate; therefore, the Architectfolate assay cannot be used for patients using these drugs. 07/28/2025 3:00 PM EDT 07/28/2025 4:15 PM EDT us Marbella Sofia DO LAB BLOOD ORDERABLES Final R esult [facility] [address] [place] [phone] * Iron And Total Iron Binding Capacity (07/28/2025 3:00 PM EDT) Iron 99 45 - 160 mcg/dL [facility] Total Iron Binding Capacity 270 228 - 428 mcg/dL [facility] Percent Iron Saturation 37 15 - 50 % [facility] Unsaturated Iron Binding 171 ug/dL [facility] 07/28/2025 3:00 PM EDT 07/28/2025 4:15 PM EDT us Marbella Sofia DO LAB BLOOD ORDERABLES Final R esult [facility] [address] [place] [phone] documented in this encounter Visit Diagnoses Not on filedocumented in this encounter Additional Health Concerns Assessment Noted Time PHQ-9 Depression Total Score: 8 02/14/20 25 11:26 AM EDT documented as of this encounter Care Teams Script Coordinator Relationship Specialty Start Date End Date Marbella Sofia DO [address] [place] [address] PCP - General Family Medicine 05/01/14 documented as of this encounter
--- OUTSIDE RECORDS SUMMARY | 2025-07-28 17:50 | XMS_ITS | Encounter Summary ---
Author Organization [employer] Address [address] [place] [address] Care Team Providers Care Pipelines Laborer Name Role Phone Marbella Sofia DO Primary Care Provider + [phone] Reason for Visit * Reason Comments Med Refill Encounter Details Date Type Department Care Team (Late st Contact Info) Description 04/14/2025 Refill [facility] MED & PEDS [address] [place], [place] [phone] Marbella Sofia DO [address] [place], [place] [phone] Type 2 diabetes mellitus with other specified complication, unspecified whether chcf insulin use ([facility]) Social History Tobacco Use Types Packs/Day Years [...] as of this encounter Visit Diagnoses Diagnosis Type 2 diabetes mellitus with other specified complication, unspecified whether middle or intermediate school principal insulin use (HCC) documented in this encounter Additional Health Concerns Assessment Noted Time PHQ-9 Depression Total Score: 8 02/14/20 25 11:26 AM EDT documented as of this encounter Care Teams Pipelines Laborer Relationship Specialty Start Date End Date Marbella Sofia DO [address] [place] [address] PCP - General Family Medicine 05/01/14 documented as of this encounter
--- OUTSIDE RECORDS SUMMARY | 2025-07-28 17:50 | XMS_ITS | Encounter Summary ---
Author Organization [employer] Address [address] 7[address] [place] [address] Care Team Providers Care Roofing Apprentice Name Role Phone Radha Sofiafer Primary Care Provider Encounter Details Date Type Department Care Team (Late st Contact Info) Description 01/23/2024 Orders Only [facility] MEDICINE [address] [place] [address] Provider, MD Eron Social History Tobacco Use [...] documented as of this encounter Care Teams Roofing Apprentice Relationship Specialty Start Date End Date Marbella Sofia DO [address] [place] [address] PCP - General Family Medicine 05/01/14 documented as of this encounter
--- OUTSIDE RECORDS SUMMARY | 2025-07-28 17:50 | XMS_ITS | Encounter Summary ---
Author Organization [employer] Address [address] 7[address] [place] [address] Care Team Providers Care Government Gauger Name Role Phone Marbella Sofia DO Primary Care Provider Encounter Details Date Type Department Care Team (Latest Contact Info) Description 01/26/2022 Abstract [facility] Dental, Provider, DDS Social History Tobacco [...] on filedocumented in this encounter Care Teams Government Gauger Relationship Specialty Start Date End Date Marbella Sofia DO [address] [place] [phone] PCP - General Family Medicine 05/01/14 documented as of this encounter
== END 2025-07-28 14:56 | disposition home or self-care (01) ==
LOC: HO.HHCL 14:55
PROVIDERS: PCP Family Medicine; Visit Provider Internal Medicine
DX: N40.1 Benign prostatic hyperplasia with lower urinary tract symptoms (principal); D64.9 Anemia, unspecified; R35.0 Frequency of micturition; R39.9 Unspecified symptoms and signs involving the genitourinary system; Z12.5 Encounter for screening for malignant neoplasm of prostate
CPT/HCPCS: 36415; 82607; 82728; 82746; 83540; 84153; 85025

== ENCOUNTER 2025-10-06 10:18 | Outpatient (REF) | payer OTHER, SELFPAY ==
--- OUTSIDE RECORDS SUMMARY | 2024-11-06 08:55 | XMS_ITS ---
Author Organization [facility] Address [address] [place] [address] Care Team Providers Care Analytical Chemistry Teacher Name Role Phone Bismark Marinelli, Sarah Primary Care Provider Mary Leighton Whipple Jr REASON FOR VISIT Patient presents today for constipation Encounters Encounter Location Date Provider Diagnosis [facility] [address] [place] [address] 11/06/2024 Leighton Plasencia Jr Plan Of Treatment No Information Progress Notes * ADELITARODNEYDOB:1950 ([age] yo M)Acc No.[id number]:11/06/2024 Progress Notes Patient: RODNEY RODRIGEZ Provider: Bahman Plasenica MD :1950 A ge:73 Y S ex:Male Date:11/06/2024 Address:[id number] Pcp:Sarah Sofia M.D. Subjective: * Chief Complaints: * P atient presents today for constipation * The named appointment provid er may or may not be the originator of this progress note, and it is not deemed complete until electronically signed by the appointment provider. Sign off status: Pending * Provider: Bahman Plasencia MD Date: 0 11/06/2024 Generated for Laith haas/Alberto/eTransmitting on: 12/07/2024 11:33 AM EST
--- OUTSIDE RECORDS SUMMARY | 2025-10-06 11:33 | XMS_ITS | Encounter Summary ---
Author Organization [employer] Address [address] [place] [address] Care Team Providers Care Confidential Investigator Name Role Phone Marbella Sofia DO Primary Care Provider [phone] Reason for Visit * Reason Comments Med Refill Encounter Details Date Type Department Care Team (Late st Contact Info) Description 04/14/2025 Refill [facility] CHC MED & PEDS [address] [place], [place] [phone] Marbella Sofia DO [address] [place], [place] [phone] Type 2 diabetes mellitus with other specified complication, unspecified whether snf insulin use ([facility]) Social History Tobacco Use Types Packs/Day [...] Care Team (Late st Contact Info) Description 10/14/2025 11:30 AM EST Immunization [facility] MEDICINE [address] [place] [address] documented as of this encounter Visit Diagnoses Diagnosis Type 2 diabetes mellitus with other specified complication, unspecified whether snf insulin use (HCC) documented in this encounter Additional Health Concerns Assessment Noted Time PHQ-9 Depression Total Score: 8 02/14/20 25 11:26 AM EDT documented as of this encounter Care Teams Confidential Investigator Relationship Specialty Start Date End Date Marbella Sofia DO [address] [place] [address] PCP - General Family Medicine 05/01/14 documented as of this encounter
--- OUTSIDE RECORDS SUMMARY | 2025-10-06 11:33 | XMS_ITS | Encounter Summary ---
Author Organization [employer] Address [address] [place] [address] Care Team Providers Care Vacuum Tester Cans Name Role Phone Marbella Sofia DO Primary Care Provider Encounter Details Date Type Department Care Team (Late st Contact Info) Description 10/06/2025 Refill [facility] CHC MED & PEDS [address] [place], [place] [phone] Marbella Sofia DO [address] [place], [place] [phone] Type 2 diabetes mellitus with other specified complication, unspecified whether half-way insulin use (HCC) Social History Tobacco Use Types Packs/Day Years Used Date Smoking Tobacco: Former Cigarettes Passive Smoke Exposure: Past Smokeless Tobacco: Never Alcohol Use Standard Drinks/Week Comments Never 0 (1 standard drink = 0.6 oz pur e alcohol) Depression Answer Date Recorded Patient Health Questionnaire-9 Score 12 09/29/2025 Patient Health Questionnaire-9 Score 12 09/29/2025 Last PHQ-9: Questionnaire Data Not on file 1 11/30/2024 Housing Stability Answer Date Recorded What is [...] Answer Date Recorded Patient Health Questionnaire-2 Score 4 09/29/2025 Internet Access Answer Date Recorded Internet Access [...] Info) Description 10/14/2025 11:30 AM EST Immunization [facility] MEDICINE [address] [place] [phone] documented as of this encounter Goals Goal Patient Goal Type Associated Problems Recent Progress Patient-Stated? Author Help patients manage their type 2 diabetes Care Plan Help patients manage their type 2 diabetes No Sheila Parada MA Weekly blood pressure task Care Plan Weekly blood pressure task No Sheila Parada MA Help patients manage their type 2 diabetes Care Plan Help patients manage their type 2 diabetes No Sheila Parada MA Patient has chronic kidney disease Care Plan Patient has chronic kidney disease No Sheila Parada MA Weekly blood pressure task Care Plan Weekly blood pressure task No Sheila Parada MA Patient has chronic kidney disease Care Plan Patient has chronic kidney disease No Sheila Parada MA Weekly blood pressure task Care Plan Weekly blood pressure task No Sheila Parada MA Weekly blood pressure task Care Plan Weekly blood pressure task No Sheila Parada MA Patient has chronic kidney disease Care Plan Patient has chronic kidney disease No Sheila Parada MA Patient has chronic kidney disease Care Plan Patient has chronic kidney disease No Sheila Parada MA Weekly blood pressure task Care Plan Weekly blood pressure task No Rosetta Rodriguez MA Weekly blood pressure task Care Plan Weekly blood pressure task No Rosetta Rodriguez MA Patient has chronic kidney disease Care Plan Patient has chronic kidney disease No Rosetta Rodriguez MA Patient has chronic kidney disease Care Plan Patient has chronic kidney disease No Rosetta Rodriguez MA Weekly blood pressure task Care Plan Weekly blood pressure task No Rusinque Tanisha, BRAND ENGINEER Weekly blood pressure task Care Plan Weekly blood pressure task No Rusinque Tanisha, BRAND ENGINEER Patient has chronic kidney disease Care Plan Patient has chronic kidney disease No AndreaeAlexanderTanisha, BRAND ENGINEER Patient has chronic kidney disease Care Plan Patient has chronic kidney disease No Rusinque Tanisha, BRAND ENGINEER Weekly blood pressure task Care Plan Weekly blood pressure task No Ramon, Yamini Weekly blood pressure task Care Plan Weekly blood pressure task No Ramon, Yamini Patient has chronic kidney disease Care Plan Patient has chronic kidney disease No Ramon, Yamini Patient has chronic kidney disease Care Plan Patient has chronic kidney disease No Ramon, Yamini Weekly blood pressure task Care Plan Weekly blood pressure task No Marbella Recinos PharmAnn Weekly blood pressure task Care Plan Weekly blood pressure task No Marbella Recinos PharmD Patient has chronic kidney disease Care Plan Patient has chronic kidney disease No Marbella Recinos, PharmD Patient has chronic kidney disease Care Plan Patient has chronic kidney disease No Marbella Recinos PharmAnn documented as of this encounter Visit Diagnoses Diagnosis Type 2 diabetes mellitus with other specified complication, unspecified whether keno terminal operator insulin use (HCC) documented in this encounter Additional Health Concerns Active Problems Noted Date Diagnosed Date Help patients manage their type 2 diabetes 09/15 Weekly blood pressure task 09/15/2025 Help patients manage their type 2 diabetes 09/15 Patient has chronic kidney disease 09/15/2025 Weekly blood pressure task 09/15/2025 Patient has chronic kidney disease 09/15/2025 Weekly blood pressure task 09/28/2025 Weekly blood pressure task 09/28/2025 Patient has chronic kidney disease 09/28/2025 Patient has chronic kidney disease 09/28/2025 Weekly blood pressure task 09/29/2025 Weekly blood pressure task 09/29/2025 Patient has chronic kidney disease 09/29/2025 Patient has chronic kidney disease 09/29/2025 Weekly blood pressure task 09/30/2025 Weekly blood pressure task 09/30/2025 Patient has chronic kidney disease 09/30/2025 Patient has chronic kidney disease 09/30/2025 Weekly blood pressure task 10/02/2025 Weekly blood pressure task 10/02/2025 Patient has chronic kidney disease 10/02/2025 Patient has chronic kidney disease 10/02/2025 Weekly blood pressure task 10/06/2025 Weekly blood pressure task 10/06/2025 Patient has chronic kidney disease 10/06/2025 Patient has chronic kidney disease 10/06/2025 Assessment Noted Time PHQ-9 Depression Total Score: 12 025 11:33 AM EST documented as of this encounter Care Teams Vacuum Tester Cans Relationship Specialty Start Date End Date Marbella Sofia DO [address] [place] [phone] PCP - General Family Medicine 05/01/14 documented as of this encounter
--- OUTSIDE RECORDS SUMMARY | 2025-10-06 11:33 | XMS_ITS | Encounter Summary ---
Author Organization [employer] Address [address] 7[address] [place] [address] Care Team Providers Care Director Medical Surgical Name Role Phone Marbella Sofia DO Primary Care Provider Encounter Details Date Type Department Care Team (Latest Contact Info) Description 01/26/2022 Abstract [facility] CONVERSIONS Dental, Provider, DDS Social History Tobacco [...] Info) Description 10/14/2025 11:30 AM EST Immunization [facility] MEDICINE [address] [place] [address] documented as of this encounter Visit Diagnoses Not on filedocumented in this encounter Care Teams Director Medical Surgical Relationship Specialty Start Date End Date Marbella Sofia DO [address] [place] [address] PCP - General Family Medicine 05/01/14 documented as of this encounter
--- OUTSIDE RECORDS SUMMARY | 2025-10-06 11:33 | XMS_ITS | Patient Health Record ---
Author Organization [facility] Address [address] [place] [address] Care Team Providers Care Architectural Representative Name Role Phone Sarah Sofia M.D. Primary Care Provider Leighton Pelayo Jr Unavailable [phone] Allergies No Known Allergies Reason For Referral No Information Medications Medication SIG (Take, Route, Frequency, Duration) Notes Start Date End Date Status Pantoprazole Sodium Active Ranolazine ER Active Gabapentin 100 MG Capsule 1 capsule at b edtime Orally Once a day Active Metoprolol Succinate 50 MG Capsule ER 24 Hour Sprinkle 1 capsule Orally Once a day Active Hydrocortisone (Perianal) 1 % Cream 1 application Externally Twice a day Active Sertraline HCl 100 MG Tablet Oral; Duration: 30 Days Active clonazePAM 2 MG Tablet Oral; Duration: 30 Days Active Lisinopril Active metFORMIN HCl ER Act armando Atrovent HFA Active Levothyroxine Sodium Active Colace 100 MG Capsule 1 capsule as neede d Orally Once a day Active FeroSul 325 (65 Fe) MG Tablet 1 tablet Orally Three times a Week Active Vitamin D3 Super Strength 50 MCG (2000 UT) Tablet 1 tablet Orally Once a day Active Diclofenac Sodium 1 % Gel as directed Externally Active Fiber-Lax 625 MG Tablet 2 tablets as nee ded Orally Three times a day Active Vitamin C 500 MG Tablet Chewable 1 tablet Orally Once a day Active Baclofen 10 MG Tablet 1 tablet as needed Orally Twice a day Active Calcium Antacid Extra Strength 750 MG Tablet Chewable 1 tablet Orally Once a day Active Aspirin 81 81 MG Tablet Delayed Release 1 tablet Orally Once a day Active Atorvastatin Calcium 80 MG Tablet 1 tablet Orally Once a day Active Famotidine 40 MG Tablet Oral; Duration: 30 Days Active Isosorbide Mononitrate ER 30 MG Tablet Extended Release 24 Hour Oral; Duration: 30 Days Acti ve Terazosin HCl 5 MG Capsule Oral; Duration: 90 Days Active traZODone HCl 100 MG Tablet Oral; Duration: 30 Days Active Immunizations Vaccine Route Administration Date Status Comme nts Influenza Unknown 08/05/2024 Administered Social History Tobacco Use: Social History Observation Description Date Details (start date - stop date) Never Smoker NA - NA Social History Drug/Alcohol: Social Info Question Answer Notes AUDIT-C (Standard) Did you have a drink containing alcohol in the past year? No Points 0 Interpretation Negative Tobacco Use: Social Info Question Answer Notes Tobacco Control (Standard) Tobacco use: Nonsmoker Additional Details Category Social Info Options Details Miscellaneous: Marital status: Vital Signs Temperature 99.1 degrees Fahrenheit 02/11/2025 Blood pressure diastolic 01 mm Hg 02/11/2025 Height 67 in 02/11/2025 Blood pressure systolic 001 mm Hg 02/11/2025 Weight 165.6 lbs 02/11/2025 BMI 25.93 kg/m2 02/11/2025 Encounters Encounter Location Date Provider Diagnosis [facility] [address] [place] [phone] 02/11/2025 Leighton Plasencia Jr Gastro-esophageal reflux disease without esophagitis K21.9 and Encounter for screening for malignant neoplasm of colon Z12.11 [facility] [address] [place] [phone] 11/06/2024 Leighton Plasencia Jr Assessments Encounter Date [...] Insured Coverage Start Date Coverage End Date [facility] [address] Attn Claims PAUL [place] [id number] RODNEY UREÑA Self - patient is the insured MEDICARE OF [place] [address] [place] [address] [id number] RODNEY UREÑA Self - patient is the insured 6 MEDICAID OF [facility] [address] [place] [address] [id number] RODNEY UREÑA Self - patient is the insured Medical (General) History Medical History History ICD Code diabetes mellitus Coronary artery disease with history of IA and stent placement, cardiomyopathy Hypertension low back pain GERD Anxiety/depression Hyperlipidemia Tinnitus Hypothyroidism Surgical History Surgery Date(Month/Year) trigger finger release
--- OUTSIDE RECORDS SUMMARY | 2025-10-06 11:33 | XMS_ITS | Encounter Summary ---
Author Organization [employer] Address [address] [place] [address] Care Team Providers Care Associate Director Regulatory Affairs Name Role Phone Marbella Sofia Primary Care Provider Encounter Details Date Type Department Care Team (Late st Contact Info) Description 01/23/2024 Orders Only [facility] MEDICINE [address] [place], [place] [phone] Provider, MD Eron Social History Tobacco Use Types Packs/Day Years Used Date Smoking Tobacco: Former Cigarettes Passive Smoke Exposure: Past Smokeless Tobacco: Never Alcohol Use Standard Drinks/Week Comments Never 0 (1 standard drink = 0.6 oz pur e alcohol) Depression Answer Date Recorded Patient Health Questionnaire-9 Score 16 11/28/2022 Housing Stability Answer Date Recorded What is your housing situation today? I have luc quyen 08/06/[address] you li [...] Info) Description 10/14/2025 11:30 AM EST Immunization [facility] MEDICINE [address] [place] [address] documented as of this encounter Procedures Procedure [...] documented as of this encounter Care Teams Associate Director Regulatory Affairs Relationship Specialty Start Date End Date Marbella Sofia DO [address] [place] [address] PCP - General Family Medicine 05/01/14 documented as of this encounter
--- OUTSIDE RECORDS SUMMARY | 2025-10-06 11:33 | XMS_ITS | Encounter Summary ---
Author Organization [facility] Address [address] [facility] 7t [place] [address] Care Team Providers Care Laborer Road Name Role Phone Marbella Sofia DO Primary Care Provider Encounter Details Date Type Department Care Team (Late st Contact Info) Description 11/27/2022 Abstract [facility] MEDICINE [address] [place] [phone] Marbella Sofia DO [address] [place] [address] Social History Tobacco Use Types Packs/Day Years [...] Info) Description 10/14/2025 11:30 AM EST Immunization [facility] [address] [place] [phone] documented as of this encounter Visit Diagnoses Not on filedocumented in this encounter Care Teams Laborer Road Relationship Specialty Start Date End Date Marbella Sofia DO [address] [place], [place] [phone] PCP - General Family Medicine 05/01/14 documented as of this encounter
--- OUTSIDE RECORDS SUMMARY | 2025-10-06 11:33 | XMS_ITS | Clinical Summary ---
Author Organization [employer] Address [address] [facility] 7[address] [place] [address] Care Team Providers Care Commercial Title Examiner Name Role Phone Marbella Sofia Primary Care Provider Allergies Active Allergy Reactions Criticality Noted Date Comments Chlorpromazine 01/02/2011 Other reaction(s): Tardive Dyskenisia Diltiazem Unknown 01/25/2011 Shellfish Allergy 12/18/2022 Medications * This document contains information received from the source organization and may not represent a complete record from that organization. clonazePAM (KlonoPIN) 2 MG tablet TAKE 1 [...] BEDTIME NEEDED Active Blood Glucose Monitoring Suppl (NanoRacks Verio) w/Device kit 1 each 2 times daily. TEST BLOOD SUGAR TWICE DAILY 1 kit Active terazosin (Hytrin) 5 MG capsule Take 5 mg by mouth at bedtime. Active pantoprazole (ProtoNix) 40 MG EC tabletIndications:C hronic gastroesophageal reflux disease Do not crush, chew, or split.TAKE 1 TABLET BY MOUTH TWICE DAILY IN THE MORNING AND IN THE EVENING 60 tablet 09/18/20 1:42 PM EST Active Antacid Extra Strength 750 MG chewable tabletIndications:C hronic gastroesophageal reflux disease CHEW 1 TABLET BY MOUTH TWICE DAILY IN THE MORNING AND IN THE EVENING NEEDED FOR HEARTBURN 30 tablet Active Alcohol Swabs (Alcohol Prep) 70 % pads USE DAILY DIRECTED 100 each 09/18/20 1:42 PM EST Active Lancets (OneTouch Delica Plus [id number]) [facility] [place] [place] TEST BLOOD SUGAR TWICE DAILY 100 each Active famotidine (Pepcid) 40 MG tablet TAKE 1 TABLET BY MOUTH AT BEDTIME 30 tablet 09/18/20 1:42 PM EST Active acetaminophen (Tylenol Extra Strength) 500 MG [...] Do not crush or chew. 30 tablet 09/18/20 1:42 PM EST 2025 Active atorvastatin (Lipitor) 80 MG tablet [...] TABLET BY MOUTH EVERY MORNING 45 tablet Active metFORMIN XR (Glucophage-XR) 500 MG 24 hr tablet TAKE 1 TABLET BY MOUTH EVERY EVENING WITH MEALS 90 tablet Active D3 Super Strength 50 MCG (2000 UT) capsuleIndications: Vitamin D deficiency TAKE 1 TABLET BY MOUTH EVERY MORNING 90 capsule 3 025 Active docusate sodium (Colace) 100 MG capsuleIndications: Chronic constipation TAKE 1 CAPSULE BY MOUTH TWICE DAILY IN THE MORNING AND IN THE EVENING 180 capsule 1 025 Active glucose blood (OneTouch Verio) test stripIndications:Ty pe 2 diabetes mellitus without complication, without long-term current use of insulin (HCC) USE DIRECTED TO TEST BLOOD SUGAR TWICE DAILY 50 strip 11 09/18/20 25 1:42 PM EST 025 Active polycarbophil (Fiber-Lax) 625 MG tabletIndications:O ther constipation Take 1 tablet (625 mg) by mouth 2 times daily. 180 tablet 3 10/01/20 1:29 PM EST 025 Active polyethylene glycol, PEG, 3350 (MiraLax) 17 GM/SCOOP powder Take 17 g by mouth if needed each day (constipatio n). 527 g 2 10/01/20 1:29 PM EST 025 2025 Active gabapentin (Neurontin) 100 MG capsule Take 1 capsule (100 mg) by mouth 3 times daily. 90 capsule 3 10/01/20 1:29 PM EST 025 Active aspirin (Aspirin Low Dose) 81 MG EC tabletIndications:T ype 2 diabetes mellitus with other specified complication, unspecified whether intermediate project manager insulin use (HCC) Take 1 tablet (81 mg) by mouth at bedtime. 90 tablet 025 Active Fiber-Lax 625 MG tabletIndications:O ther constipation TAKE 2 TABLETS BY MOUTH ONCE DAILY IN THE MORNING 180 tablet 1 024 2024 Discontinued(R eorder (will not trigger notification to Pharmacy)) glucose blood (OneTouch Verio) test stripIndications:Ty pe 2 diabetes mellitus without complication, without long-term current use of insulin (HCC) USE TO TEST BLOOD SUGAR TWICE DAILY 50 strip 11 024 2024 Discontinued gabapentin (Neurontin) 100 MG capsule TAKE 1 CAPSULE BY MOUTH AT BEDTIME 30 capsule 3 09/18/20 1:42 PM EST 025 2024 Discontinued(R eorder (will not trigger notification to Pharmacy)) Aspirin Low Dose 81 MG EC tabletIndications:T ype 2 diabetes mellitus with other specified complication, unspecified whether [facility]cf insulin use (HCC) TAKE 1 TABLET BY MOUTH AT BEDTIME 90 tablet 025 2024 Discontinued(R eorder (will not trigger notification to Pharmacy)) Active Problems Problem Noted Date Diagnosed Date Chronic recurrent major depressive disorder 09/14 Lower urinary tract symptoms (LUTS) 07/29/2025 Assessment & Plan (07/29/2025 2:15 PM EDT): No evidence of UTI, unclear if patient has prostatitis as he did not allow further examination. Ordered PSA, if significantly elevated we will have him follow-up with urology on a more urgent visit. I told him to call urology office and schedule a follow-up appointment with them. Urinary frequency 07/16/2024 Peripheral polyneuropathy 07/16/2024 Cardiomyopathy [...] pain 11/28/2022 11/28/2022 Osteoarthritis 11/28/2022 11/28/2022 Encounters * This document contains information received from the source organization and may not represent a complete record from that organization. Date Type Department Care Team Description 10/06/2025 Refill [facility] [address] [place], [place] [phone] Marbella Sofia DO Type 2 diabetes mellitus with other specified complication, unspecified whether chcf insulin use (HCC) 10/02/2025 Telephone [facility] [address] [place] [address] Marbella Sofia DO Lab Orders 09/29/2025 11:15 AM EST Office Visit [facility] [address] [place] [address] Marbella Sofia DO Type 2 diabetes mellitus without complication, without long-term current use of insulin (HCC); Other constipation; Encounter for immunization 09/29/2025 Travel 09/28/2025 Telephone [facility] [address] [place] [phone] Marbella Sofia DO Chart Prep 09/15/[address] [address] Marbella Sofia DO Recall Appointment 09/15/2025 Travel 09/08/2025 Refill [facility] [address] [place], [place] [phone] Marbella Sofia DO Type 2 diabetes mellitus without complication, without long-term current use of insulin (HCC) 08/02/2025 Refill [facility] [address] [place] [phone] Marbella Sofia DO Chronic constipation 07/28/2025 2:00 PM EDT Office Visit [facility] [address] [place] [phone] Kaye Maldonado MD Lower urinary tract symptoms (LUTS) (Primary Dx); Benign prostatic hyperplasia with urinary frequency; Dysuria 07/28/2025 Orders Only [address] [address] Marbella Sofia DO 07/28/2025 Travel 07/15/2025 Refill [facility] [address] [place] [address] Marbella Sofia DO Type 2 diabetes mellitus with other specified complication, unspecified whether chcf insulin use (HCC) from Last 3 Months Immunizations Immunization Administration Dates Next Due Hep B, adult 04/23/2018,03/02/2017,01/23/2017 Influenza High-dose Quadriva lent Preservative Free 06/25/2023,08/10/2021,09/20/2020 Influenza injectable quadriv alent IIV4 with preservative 08/23/2017,10/02/2016,10/20/2015 Influenza injectable quadriv alent preservative free 11/28/2022,09/15/2019 Influenza, High Dose Seasona l, Preservative Free 09/29/2025,07/16/2024,08/28/2018 Influenza, IIV3, injectable 09/24/2014, 0 Influenza, Split [...] Sign Reading Time Taken Comments Blood Pressure 115/80 09/29/2025 11:27 AM EST Pulse 71 09/29/2025 11:27 AM EST Temperature 37.1 C (98.7 F) 09/29/2025 11:27 AM EST Respiratory Rate 15 09/29/2025 11:27 AM EST Oxygen Saturation 98% 09/29/2025 11:27 AM EST Inhaled Oxygen Concentration - - Weight 77.4 kg (170 lb 9.6 oz) 09/29/2025 11:27 AM EST Height 167.6 cm (5' 6 ) 09/29/2025 11:27 AM EST Body Mass Index 27.54 09/29/2025 11:27 AM EST Plan of Treatment Upcoming Encounters Date Type Department Care Team (Late st Contact Info) Description 10/14/2025 11:30 AM EST Immunization [facility] [address] [place] [address] Health Maintenance Due Date Last Done Comments CT Colonography 1950 FIT DNA/Cologuard 1950 FIT 1950 FOBT 1950 Sigmoidoscopy 1950 Diabetes: Foot Exam 1960 RSV Patients and Patients Aged 60 years or older (1 - Risk 50-74 years 1-dose series) 2000 DTaP/Tdap/Td Vaccines (2 - Td or Tdap) 04/21/2020 04/21/2010 Colonoscopy 08/07/2024 08/07/2019 Colorectal Cancer Screening 08/07/2024 COVID-19 Vaccine ( season) 2025 07/16/2024, 09/26/2023, 11/07/2022, Additional history exists Diabetes: Urine Protein Screening 08/04/2025 08/04/2024, 05/03/2022, 11/22/2020 Lipid Panel 08/04/2025 08/04/2024, 10/16, 02/19/2023, Additional history exists Alcohol/Substance Use Screening 02/13/2026 02/13/2025 SDOH Screening 02/13/2026 02/13/2025 Depression Monitoring 03/30/2026 09/29/2025, 025 Diabetes: Hemoglobin A1C 03/30/2026 025, 02/13/2025, 08/04/2024, Additional history exists Tobacco Screening 09/29/2026 09/29/2025 Eye Exam 04/01/2027 04/01/2025, 03/15, 04/01/2025, Additional history exists Hepatitis B Vaccines Completed 04/23/2018, 03/02/2017, 01/23/2017 Zoster Vaccines Completed 09/16/2020, 05/15, 01/20/2016 Pneumococcal Vaccine: 50+ Years Completed 03/04/2024, 04/23/2018, 05/29/2016, Additional history exists Hepatitis C Screening Completed 08/04/2024, 024 Influenza Vaccine Completed 09/29/2025, , 06/25/2023, Additional history exists HIB Vaccines Aged Out No longer eligi [...] on patient's age to complete this topic Goals Goal Patient Goal Type Associated Problems [...] Care Plan Weekly blood pressure task No Tanisha Leonardo LICSW Weekly blood pressure task Care Plan Weekly blood pressure task No Tanisha Leonardo LICSW Patient has chronic kidney disease Care Plan Patient has chronic kidney disease No Tanisha Leonardo LICSW Patient has chronic kidney disease Care Plan Patient has chronic kidney disease No Tanisha Leonardo LICSW Weekly blood pressure task Care Plan Weekly blood pressure task No Yamini Ramon Weekly blood pressure task Care Plan Weekly blood pressure task No Yamini Ramon Patient has chronic kidney disease Care Plan Patient has chronic kidney disease No Yamini Ramon Patient has chronic kidney disease Care Plan Patient has chronic kidney disease No Yamini Ramon Weekly blood pressure task Care Plan Weekly blood pressure task No Marbella Recinos PharmD Weekly blood pressure task Care Plan Weekly blood pressure task No Marbella Recinos PharmD Patient has chronic kidney disease Care Plan Patient has chronic kidney disease No Marbella Recinos PharmD Patient has chronic kidney disease Care Plan Patient has chronic kidney disease No Marbella Recinos PharmD Procedures Procedure Name Priority Date/Time Associated Diagnosis Comments POCT GLYCATED HEMOGLOBIN, TOTAL Routine 09/29/2025 11:28 AM EST Type 2 diabetes mellitus without complication, without long-term current use of insulin (HCC) POCT GLUCOSE (CPT-20943) Routine 09/29/2025 11:27 AM EST Type 2 diabetes mellitus without complication, without long-term current use of insulin ([facility]) VITAMIN B12/FOLATE, SERUM PANEL Routine 07/28/2025 3:00 [...] DIPSTICK Routine 07/28/2025 2:27 PM EDT Dysuria HEPATITIS C AB W/REFL TO HCV RNA, QN, PCR Routine 08/04/2024 9:48 AM EDT Type 2 diabetes mellitus without complication, without long-term current use of insulin (CMS/HCC) Essential hypertension Other hyperlipidemia Generalized anxiety disorder Coronary artery disease involving [place] coronary artery of [place] heart, unspecified whether angina present Hypothyroidism, unspecified [...] complication, without long-term current use of insulin ([facility]) Essential hypertension Other hyperlipidemia Generalized anxiety disorder Coronary artery disease involving [place] coronary artery of [place] heart, unspecified whether angina present Hypothyroidism, unspecified [...] complication, without long-term current use of insulin ([facility]) Essential hypertension Other hyperlipidemia Generalized anxiety disorder Coronary artery disease involving [place] coronary artery of [place] heart, unspecified whether angina present Hypothyroidism, unspecified [...] to Health Maintenance Results * (ABNORMAL) POCT Hgb A1c (09/29/2025 11:28 AM EST) Pathologist [facility] Hemoglobin A1C 6.7(A) 4.0 - 5.7 % QC Media Lot # [id number] Lot# Expiration Date [id number] Blood 09/29/2025 11:2 8 AM EST Marbella Sofia DO POINT OF CARE TEST ENTER/[place]ILTON T ORDERABLES Final Result * POCT Glucose (09/29/2025 11:27 AM EST) Pathologist [facility] Glucose Blood, POC 187 60 - 200 mg/dL Comment:RANDOM QC Media Lot # [id number] Lot# Expiration Date Blood Capillary blood specimen / Unknown 09/29/2025 11:27 AM EST Marbella Sofia DO POINT OF CARE TEST ENTER/[place]ILTON T ORDERABLES Final Result * Vitamin B12 (Cobalamin) and Folate Panel, Serum (07/28/2025 3:00 PM EDT) Pathologist [facility] Vitamin B12 265 200 - 900 pg/mL [facility] Comment:NORMAL 200-900 PG/ML INDETERMINATE 160-199 PG/ML DEFICIENT < 160 PG/ML Folate 10.3 > or = 4.0 ng/mL [facility] Comment:Reference Values:> o r = 4.0 ng/mL< 4.0 ng/mL suggests folate deficiency Methotrexate, aminopterin and folinic acid(leucovorin) are chemotherapeutic agents whose molecularstructures are similar to folate; therefore, the Architectfolate assay cannot be used for patients using these drugs. 07/28/2025 3:00 PM EDT 07/28/2025 4:15 PM EDT Marbella Sofia DO LAB BLOOD ORDERABLES Final R esult [facility] [address] [place] [phone] * PSA, Total With Reflex to PSA, Free (07/28/2025 3:00 PM EDT) Pathologist [facility] PSA,Total (Free>4and<10) 0.81 0.00 - 4.00 ng/mL [facility] Comment:A Free PSA was not p [...] MD LAB BLOOD ORDERABLES Fin al Result [facility] [address] [place] [phone] * (ABNORMAL) CBC auto differential (07/28/2025 3:00 PM EDT) White Blood Count 5.2 4.8 - 10.8 X10*3/uL [facility] Red Blood Count 3.97(L) 4.60 - 5.80 X10*6/uL [facility] Hemoglobin 12.7(L) 14.0 - 18.0 g/dl [facility] Hematocrit 37.4(L) 42.0 - 52.0 % [facility] Mean Corpuscular Volume 94.2 80.0 - 98.0 fL [facility] Mean Corpuscular Hemoglobin 32.0 27.0 - 33.0 pg [facility] Mean Corpuscular HGB Conc 34.0 31.0 - 36.0 g/dl [facility] Red Cell Distribution Width 11.5 11.0 - 16.0 % [facility] Platelet Count 210 160 - 400 X10*3/uL [facility] Mean Platelet Volume 9.6 9.4 - 12.4 fL [facility] Neutrophils Percent Auto 61.9 45 - 73 % [facility] Imm Gran Pct Auto 0.6(H) 0.0 - 0.4 % [facility] Lymphocytes Percent Auto 24.7 20 - 40 % [facility] Monocytes Percent Auto 9.7 2 - 11 % [facility] Eosinophils Percent Auto 2.7 0 - 4 % [facility] Basophils Percent Auto 0.4 0 - 2 % [facility] NRBC Pct Auto 0.0 0.0 - 0.2 /100WBC [facility] Neutrophils Absolute Auto 3.2 2.0 - 8.3 x10*3/uL [facility] Imm Gran Abs Auto 0.03 0.00 - 0.03 X10*3/uL [facility] Lymphocytes Absolute Auto 1.3 1.2 - 4.9 X10*3/uL [facility] Monocytes Absolute Auto 0.5 0.1 - 1.2 X10*3/uL [facility] Eosinophils Absolute Auto 0.1 0.0 - 0.4 X10*3/uL [facility] Basophils Absolute Auto 0.0 0.0 - 0.2 X10*3/uL [facility] NRBC Abs Auto 0.000 0.0 - 0.012 X10*3/uL [facility] Blood Venous blood specimen / Unknown 07/28/2025 3:00 PM EDT 07/28/2025 4:15 PM EDT us Kaye Maldonado MD LAB BLOOD ORDERABLES Fin al Result Performing Organization Address City/[facility]/ZIP Co de Phone Number [facility] [address] [place] [phone] * Iron And Total Iron Binding Capacity (07/28/2025 3:00 PM EDT) Iron 99 45 - 160 mcg/dL [facility] Total Iron Binding Capacity 270 228 - 428 mcg/dL [facility] Percent Iron Saturation 37 15 - 50 % [facility] Unsaturated Iron Binding 171 ug/dL [facility] 07/28/2025 3:00 PM EDT 07/28/2025 4:15 PM EDT us Marbella Sofia DO LAB BLOOD ORDERABLES Final R esult [facility] [address] [place] [phone] * Ferritin (07/28/2025 3:00 PM EDT) Ferritin 222 20 - 250 ng/mL [facility] Blood Venous blood specimen / Unknown 07/28/2025 3:00 PM EDT 07/28/2025 4:15 PM EDT us Marbella Sofia DO LAB BLOOD ORDERABLES Final R esult Performing Organization Address City/[facility]/ZIP Co de Phone Number [facility] [address] [place] [phone] * POCT Urinalysis (07/28/2025 2:27 PM [...] Media Lot # [id number] Lot# Expiration Date ,026 Urine (Urine, Random) 07/28/2025 2:27 PM EDT Kaye Maldonado MD POINT OF CARE TEST ENTER /EDIT ORDERABLES Final Result * Hepatitis C Antibody with Reflex to HCV, RNA, Quantitative, Real-Time PCR (08/04/2024 9:48 AM EDT) Hepatitis C Antibody Nonreactive Nonreactive [facility] Comment:Antibodies to HCV no t detected; does not exclude early acuteHCV infection. Blood Venous blood specimen / Unknown 08/04/2024 9:48 AM EDT 08/04/2024 9:48 AM EDT us Marbella Bismark DO LAB BLOOD ORDERABLES Final R esult [facility] [address] [place] [phone] * (ABNORMAL) Lipid Panel, Standard (08/04/2024 9:48 AM EDT) Triglycerides 169(H) <150 mg/dL [facility] Comment:Desirable Triglyceri de: less than 150 mg/dLBorderline High Triglyceride 150-199 mg/dLHigh Triglyceride: 200-499 mg/dLVery High Triglyceride: greater than or equal to 5OO mg/dL Cholesterol 124 <200 mg/dL [facility] Comment:Desirable Cholestero l: less than 200 mg/dLBorderline High Cholesterol: 200-239 mg/dLHigh Cholesterol: greater than 239 mg/dL LDL Cholesterol Calculated 53 <100 mg/dL [facility] Comment:Desirable LDL: less than 100 mg/dLNear Optimal/Above Optimal LDL: 110- 129 mg/dLBorderline High LDL: 130-159 mg/dLHigh LDL: 160-189 mg/dLVery High LDL: greater than or equal to 190 mg/dL HDL Cholesterol 38(L) >40 mg/dL [facility] Comment:Desirable HDL: great er than 40 mg/dL Note: This HDL assay may give artificially low results in patients with liver disease. Blood Venous blood specimen / Unknown 08/04/2024 9:48 AM EDT 08/04/2024 9:48 AM EDT us Marbella Bismark DO LAB BLOOD ORDERABLES Final R esult [facility] [address] [place] [phone] * Albumin, Random Urine W/Creatinine (08/04/2024 9:45 AM EDT) Creatinine, Urine 137.82 mg/dL [facility] Microalbumin Urine 6.0 mg/L [facility] Microalbum Creatinine Ratio Ur 4.3 <30 ug/mg cr [facility] Comment:Albumin/Creatinine R atio Reference Ranges: Normal: < 30 ug/mg creatinine Microalbuminuria: 30 - 300 ug/mg creatinineClinical Albuminuria: > 300 ug/mg creatinine Urine (Urine, Random) 08/04/2024 9:45 AM EDT 08/04/2024 10:03 AM EDT us Marbella Sofia DO LAB URINE ORDERABLES Final R esult [facility] [address] [place] [phone] * Hm Colonoscopy (08/07/2019 3:09 PM EDT) us Historical Provider MD HEALTH MAINTENANCE Final Result from Last 3 Months or Most Recently Relevant to Health Maintenance Additional Health Concerns Active Problems Noted Date [...] 10/06/2025 Patient has chronic kidney disease 10/06/2025 Insurance [facility] [employer] (HMO D-SNP) [place] [id number] Care Teams Commercial Title Examiner Relationship Specialty Start Date End Date Marbella Sofia DO [address] [place] [phone] PCP - General Family Medicine 05/01/14
--- OUTSIDE RECORDS SUMMARY | 2025-10-06 11:33 | XMS_ITS | Encounter Summary ---
Author Organization [employer] Address [address] [facility] [address] [place] [address] Care Team Providers Care Water Taxi Boat Mate Name Role Phone Marbella Sofia DO Primary Care Provider [phone] Reason for Visit * Reason Onset Date Comments Lab Orders 10/02/2025 Encounter Details Date Type Department Care Team ([facility] st Contact Info) Description 10/02/2025 Telephone [facility] [address] [place] [address] Marbella Sofia DO [address] [place], [place] [phone] Lab Orders Social History Tobacco Use Types Packs/Day Years [...] encounter Miscellaneous Notes * Telephone Encounter - Amy Hernandez RN - 10/02/2025 2:12 PM EST TC placed to patient [phone] in regards to below message. Patient informed PCP has ordered BW and patient should complete BW fasting (lipid panel ordered). Patient also informed we do not have [facility] however he can contact his insurance to inquire on a list or possibly research online. Patient verbalized understanding. Patient to f/u PRN. * Telephone Encounter - Yamini Ramon - 10/02/2025 1:15 PM EST Pt walked in stating pcp was supposed to send lab orders during last visit with her on 09/29. Pt upset as she stated she would place orders same day and still hasn't. Pt also stated he was supposed to receive a list of local [facility] from her but hasn't received one yet. Pt states he will be back Sunday for both. documented in this encounter Plan of Treatment Upcoming Encounters Date Type Department Care Team (Late st Contact Info) Description 10/14/2025 11:30 AM EST Immunization [facility] [address] [place] [phone] documented as of this encounter Goals Goal [...] Care Plan Weekly blood pressure task No nAdreaeTanisha MUSHROOM SPAWN MAKER Patient has chronic kidney disease Care Plan Patient has chronic kidney disease No Keveninque Tanisha, MUSHROOM SPAWN MAKER Patient has chronic kidney disease Care Plan Patient has chronic kidney disease No Rusinque Tanisha, MUSHROOM SPAWN MAKER Weekly blood pressure task Care Plan Weekly blood pressure task No RamonYamini Weekly blood pressure task Care Plan Weekly blood pressure task No Ramon, Yamini Patient has chronic kidney disease Care Plan Patient has chronic kidney disease No Ramon, Yamini Patient has chronic kidney disease Care Plan Patient has chronic kidney disease No Ramon Yamini documented as of this encounter Visit Diagnoses Not on filedocumented in this encounter Additional Health Concerns Active [...] 10/02/2025 Patient has chronic kidney disease 10/02/2025 Assessment Noted Time PHQ-9 Depression Total Score: 12 025 11:33 AM EST documented as of this encounter Care Teams Water Taxi Boat Mate Relationship Specialty Start Date End Date Marbella Sofia DO [address] [place] [phone] PCP - General Family Medicine 05/01/14 documented as of this encounter
[2025-10-06 11:37] LABS: Hematocrit 38.0 % (42.0-52.0); Hemoglobin 12.7 g/dl (14.0-18.0); Mean Corpuscular HGB Conc 33.4 g/dl (31.0-36.0); Mean Corpuscular Hemoglobin 31.7 pg (27.0-33.0); Mean Corpuscular Volume 94.8 fL (80.0-98.0); NRBC Abs Auto 0.000 X10*3/uL (0.0-0.012); NRBC Pct Auto 0.0 /100WBC (0.0-0.2); Platelet Count 219 X10*3/uL (160-400); Red Blood Count 4.01 X10*6/uL (4.60-5.80); White Blood Count 6.6 X10*3/uL (4.8-10.8)
[2025-10-06 12:08] LABS: Alanine Aminotransferase 33 U/L (0-40); Albumin Level 4.6 g/dL (3.5-5.0); Alkaline Phosphatase 55 U/L (39-117); Anion Gap 11 (12-20); Aspartate Amino Transferase 34 U/L (5-37); Blood Urea Nitrogen 13 mg/dL (9-16); Calcium 9.3 mg/dL (8.4-10.2); Carbon Dioxide 30 mmol/L (22-29); Chloride 104 mmol/L (96-108); Cholesterol 131 mg/dL (<200); Estimated Glomerular Filt Rate > 60; HDL Cholesterol 41 mg/dL (>40); Potassium 3.9 mmol/L (3.3-5.1); Sodium 141 mmol/L (135-145); Total Protein 6.9 g/dL (6.5-8.0); Triglycerides 149 mg/dL (<150)
[2025-10-06 12:12] LABS: Free T4 (Free Thyroxine) 1.04 ng/dL (0.71-1.85); Thyroid Stimulating Hormone 2.20 uIU/mL (0.32-4.0)
[2025-10-06 12:35] LABS: Microalbum/Creatinine Ratio Ur 5.4 ug/mg cr (<30)
[2025-10-06 12:47] LABS: HBS Num1 0.49 mIU/mL (0-7.99); HBsAGNum1 0.35 S/CO (0.00-0.99); HIV Num 1 0.07 S/CO (0.00-0.99); Hepatitis B Surface Antigen Negative (Negative); ~HepC Num1 0.08 S/CO (0.00-0.79); ~Hepatitis B Surface Antibody NONREACTIVE (Nonreactive); ~Hepatitis C Antibody Nonreactive (Nonreactive)
== END 2025-10-06 10:19 | disposition home or self-care (01) ==
LOC: HO.HHCL 10:18
PROVIDERS: PCP Family Medicine; Visit Provider Family Medicine
DX: Z11.4 Encounter for screening for human immunodeficiency virus [HIV] (principal); E11.9 Type 2 diabetes mellitus without complications; Z20.2 Contact with and (suspected) exposure to infections with a predominantly sexual mode of transmission; Z13.21 Encounter for screening for nutritional disorder
CPT/HCPCS: 36415; 80048; 80061; 80076; 82043; 82306; 82570; 83036; 84439; 84443; 85027; 86592; 86706; 86803; 87340; 87389